=== PATIENT | female | born 1970 | race American Indian/Alaskan Native ===

== ENCOUNTER 2016-08-20 02:20 | Emergency (ER) | payer MEDICARE, MEDICAID ==
[2016-08-20 02:41] VITALS: BP 149/87
[2016-08-20] MEDS ORDERED: Acetaminophen/oxyCODONE 325-5 MG Tab PO ONE (02:56)
--- NOTE | 2016-08-20 04:45 | EDM.PDOC ---
ED HPI GENERAL MEDICAL PROBLEM - General Chief Complaint: General Stated Complaint: AMBULANCE Time Seen by Provider: 08/20/16 02:45 Source of Information: Reports: Patient, RN Notes Reviewed History Limitations: Reports: No Limitations - History of Present Illness INITIAL COMMENTS - FREE TEXT/NARRATIVE: ED via [facility] with c/o pain to left ribs after falling carrying in groceries, unsure what she fell on, pain worse with movement and taking deep breath. No other reported injuries with fall. Onset: Today Location: Reports: Chest (left) Quality: Reports: Stabbing (with movment), Throbbing Improves with: Reports: None Worsens with: Reports: Movement Left Chest Pain Score (Numeric/FACES): 8 - Related Data Allergies Allergy/AdvReac Type Severity Reaction Status Date / Time No Known Allergies Allergy Verified 08/20/16 02:25 Home Meds: Home Meds Albuterol [Proair HFA] 2 puff INH ASDIRECTED PRN 08/21/13 [History] Fluticasone Propionate [Flovent HFA 110 MCG] 2 puff INH ASDIRECTED PRN 08/21/13 [History] Lisinopril 40 mg PO DAILY 08/21/13 [History] sitaGLIPtin Phos/Metformin HCl [Janumet 50-1,000 MG] 1,000 mg PO DAILY 08/21/13 [History] Insulin Aspart [Novolog Flexpen] 25 units SQ TID PRN 03/17/15 [History] Insulin Glarg,Human.Rec.Analog [Lantus] 30 units SQ BID 03/17/15 [History] Gabapentin [Gabapentin] 600 mg PO TID 09/07/15 [History] Past Medical History HEENT History: Reports: None Cardiovascular History: Reports: Hypertension, Other (See Below) Other Cardiovascular History: hx rhuematic fever Respiratory History: Reports: Asthma Gastrointestinal History: Reports: None Genitourinary History: Reports: None 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 Musculoskeletal History: Reports: Back Pain, Chronic, Osteoarthritis Neurological History: Reports: Neuropathy, Diabetic, Neuropathy, Peripheral, Seizure, TIA Other Neuro History: mini strokes Psychiatric History: Reports: None Endocrine/Metabolic History: Reports: Diabetes, Type II, IDDM, Obesity/BMI 30+ Hematologic History: Reports: None Immunologic History: Reports: None Oncologic (Cancer) History: Reports: None Dermatologic History: Reports: None - Infectious Disease History Infectious Disease History: Reports: Chicken Pox - Past Surgical History Head Surgeries/Procedures: Reports: None Female Surgical History: Reports: Section Social & Family History - Family History Family Medical History: Noncontributory Respiratory: Reports: Asthma Other Respiratory Family Hisory: Brother Endocrine/Metabolic: Reports: Diabetes, type II Other Endocrine/Metabolic Family History: Brother - Tobacco Use Smoking Status *Q: Current Every Day Smoker Years of Tobacco use: 20 Packs/Tins Daily: 0.2 Used Tobacco, but Quit: No Month Tobacco Last Used: Second Hand Smoke Exposure: Yes - Caffeine Use Caffeine Use: Reports: Soda - Alcohol Use Days Per Week of Alcohol Use: 0 - Recreational Drug Use Recreational Drug Use: No - Sexual History Sexual History: Reports: Sexually Active, Single Partner - Living Situation & Occupation Living situation: Reports: with Significant Other, with Family Occupation: Unemployed ED ROS GENERAL - Review of Systems Review Of Systems: ROS reveals no pertinent complaints other than HPI. ED EXAM, GENERAL - Physical Exam Exam: See Below Exam Limited By: No Limitations General Appearance: Alert, Mild Distress, Obese Eye Exam: Bilateral Eye: EOMI, PERRL Nose: Normal Inspection Throat/Mouth: No: Normal Teeth (poor dentation) Head: Atraumatic, Normocephalic Neck: Normal Inspection Respiratory/Chest: No Respiratory Distress, Lungs Clear, Decreased Breath Sounds (left base), Splinting (left) Cardiovascular: Normal Peripheral Pulses, Regular Rate, Rhythm GI/Abdominal: Normal Bowel Sounds, Soft, Non-Tender Back Exam: Normal Inspection Extremities: Normal Inspection Neurological: Alert, Oriented, Normal Cognition, Normal Reflexes Skin Exam: Warm, Dry, Intact Lymphatic: No Adenopathy Course - Vital Signs Last Recorded V/S: Last Vital Signs Temp 97.8 F 08/20/16 02:29 Pulse 105 H 08/20/16 02:29 Resp 20 08/20/16 02:29 BP 149/87 H 08/20/16 02:29 Pulse Ox 100 08/20/16 02:29 - Orders/Labs/Meds Meds: Medications Discontinued Medications Generic Name Dose Route Start Last Admin Trade Name Freq PRN Reason Stop Dose Admin Oxycodone/Acetaminophen 1 tab 08/20/16 02:56 08/20/16 03:03 Percocet 325-5 Mg PO 08/20/16 02:57 1 tab ONETIME ONE Administration Departure - Departure Time of Disposition: 04:37 Disposition: Home, Self-Care 01 Condition: Good Clinical Impression: Rib pain on left side - Discharge Information Instructions: Rib Contusion Forms: ED Department Discharge Additional Instructions: alternate tylenol 650mg with Ibuprofen 600mg every 4 hours splint area with coughing change positions slowly follow up on Wednesday in clinic sooner if pain worsens or breathing difficulty
== END 2016-08-20 04:56 | disposition home or self-care (01) ==
LOC: DL.ED 02:20
DX: R07.81 Pleurodynia (principal); E11.42 Type 2 diabetes mellitus with diabetic polyneuropathy; I10 Essential (primary) hypertension; J45.909 Unspecified asthma, uncomplicated; M19.90 Unspecified osteoarthritis, unspecified site; E66.9 Obesity, unspecified; F17.210 Nicotine dependence, cigarettes, uncomplicated; Z86.73 Personal history of transient ischemic attack (TIA), and cerebral infarction without residual deficits; Z79.4 Long term (current) use of insulin; Z79.84 Long term (current) use of oral hypoglycemic drugs; Z79.899 Other long term (current) drug therapy
CPT/HCPCS: 71101; 99284; A9270

== ENCOUNTER 2016-10-01 16:38 | Emergency (ER) | payer MEDICARE, MEDICAID ==
--- NOTE | 2016-10-01 17:15 | EDM.PDOC ---
ED HPI GENERAL MEDICAL PROBLEM - General Chief Complaint: Neuro Symptoms/Deficits Stated Complaint: GENERAL Time Seen by Provider: 10/01/16 16:50 Source of Information: Reports: Patient History Limitations: Reports: No Limitations - History of Present Illness INITIAL COMMENTS - FREE TEXT/NARRATIVE: This 45 yo female patient was brought to the ED by [facility] due to a possible stroke. EMS reports when they appeared on scene the patient had slurred speech, right sided facial droop, right arm and right leg weakness. EMS reports her blood sugar was 120's during their visit. The patient was immediately taken to the CT for a scan of her head. The patient's reports he was with the patient this morning until about noon. The patient was acting normally and they went for a 2 block walk to their son's school. The reports he went back to work and called the house at about 1300 and the patient was slurring her words. The came directly home and checked the patient's blood sugar. The patient's blood sugar at that time was 504. The gave the patient some insulin and returned to work. The called back to the house at about 1500 and the patient was again slurring her words. The returned to the house, checked the patient's blood sugar (340's) and gave her some more insulin. Just prior to calling the ambulance, the patient told her that she had fallen earlier today hitting the back of her head. At that time, the noticed that the patient had right sided facial droop, right arm weakness and right leg weakness. The reports the patient has a history of being transported by air to [facility] in [place] for a blood infection and was in a coma for a week. Since that time, the reports that the patient has been having "little strokes." Onset: Today Onset Date: 10/01/16 Duration: Constant Location: Reports: Head, Face, Upper Extremity, Right, Lower Extremity, Right Quality: Reports: Other Severity: Severe Improves with: Reports: None Worsens with: Reports: None Associated Symptoms: Reports: No Other Symptoms - Related Data Allergies Allergy/AdvReac Type Severity Reaction Status Date / Time No Known Allergies Allergy Verified 10/01/16 17:17 Home Meds: Home Meds Albuterol [Proair HFA] 2 puff INH ASDIRECTED PRN 08/21/13 [History] Fluticasone Propionate [Flovent HFA 110 MCG] 2 puff INH ASDIRECTED PRN 08/21/13 [History] Lisinopril 40 mg PO DAILY 08/21/13 [History] sitaGLIPtin Phos/Metformin HCl [Janumet 50-1,000 MG] 1,000 mg PO DAILY 08/21/13 [History] Insulin Aspart [Novolog Flexpen] 25 units SQ TID PRN 03/17/15 [History] Insulin Glarg,Human.Rec.Analog [Lantus] 30 units SQ BID 03/17/15 [History] Gabapentin [Gabapentin] 600 mg PO TID 09/07/15 [History] Aspirin [Ecotrin] 81 mg PO DAILY 10/01/16 [History] Ibuprofen [Motrin] 800 mg PO ASDIRECTED PRN 10/01/16 [History] Past Medical History HEENT History: Reports: None Cardiovascular History: Reports: Hypertension, Other (See Below) Other Cardiovascular History: hx rhuematic fever Respiratory History: Reports: Asthma Gastrointestinal History: Reports: None Genitourinary History: Reports: None 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 Musculoskeletal History: Reports: Back Pain, Chronic, Osteoarthritis Neurological History: Reports: Neuropathy, Diabetic, Neuropathy, Peripheral, Seizure, TIA Other Neuro History: mini strokes Psychiatric History: Reports: None Endocrine/Metabolic History: Reports: Diabetes, Type II, IDDM, Obesity/BMI 30+ Hematologic History: Reports: None Immunologic History: Reports: None Oncologic (Cancer) History: Reports: None Dermatologic History: Reports: None - Infectious Disease History Infectious Disease History: Reports: Chicken Pox - Past Surgical History Head Surgeries/Procedures: Reports: None Female Surgical History: Reports: Section Social & Family History - Family History Family Medical History: Noncontributory Respiratory: Reports: Asthma Other Respiratory Family Hisory: Brother Endocrine/Metabolic: Reports: Diabetes, type II Other Endocrine/Metabolic Family History: Brother - Tobacco Use Smoking Status *Q: Current Every Day Smoker Years of Tobacco use: 20 Packs/Tins Daily: 0.2 Used Tobacco, but Quit: No Month Tobacco Last Used: 02 Second Hand Smoke Exposure: Yes - Caffeine Use Caffeine Use: Reports: Soda - Alcohol Use Days Per Week of Alcohol Use: 0 - Recreational Drug Use Recreational Drug Use: No - Sexual History Sexual History: Reports: Sexually Active, Single Partner - Living Situation & Occupation Living situation: Reports: with Significant Other, with Family Occupation: Unemployed ED ROS GENERAL - Review of Systems Review Of Systems: ROS reveals no pertinent complaints other than HPI. ED EXAM, NEURO - Physical Exam Exam: See Below Exam Limited By: No Limitations General Appearance: Alert, WD/WN, Moderate Distress, Obese Eye Exam: Bilateral Eye: EOMI, Normal Inspection, PERRL (sluggish but reactive) Ears: Normal External Exam, Normal Canal, Hearing Grossly Normal Nose: Normal Inspection, Normal Mucosa, No Blood Throat/Mouth: Normal Inspection, Normal Lips, Normal Teeth, Normal Gums, Normal Oropharynx, Normal Voice, No Airway Compromise Head Exam: Atraumatic, Normocephalic, Other (right sided facial droop) Neck: Normal Inspection, Supple, Non-Tender Respiratory/Chest: No Respiratory Distress, Lungs Clear, Normal Breath Sounds, No Accessory Muscle Use, Chest Non-Tender Cardiovascular: Normal Peripheral Pulses, Regular Rate, Rhythm, No Edema, No Gallop, No JVD, No Murmur, No Rub GI/Abdominal: Normal Bowel Sounds, Soft, Non-Tender, No Organomegaly, No Distention, No Abnormal Bruit, No Mass, Pelvis Stable (Female) Exam: Deferred Rectal (Female) Exam: Deferred Neurological: Alert, Normal Mood/Affect, Other (right sided facial droop, right sided upper and lower extremity weakness, slurred speach) Back Exam: Normal Inspection, Full Range of Motion, NT Extremities: Other (see above (right sided weakness)) Psychiatric: Normal Affect, Normal Mood Skin Exam: Warm, Dry, Intact, Normal Color, No Rash Course - Orders/Labs/Meds Orders: Active Orders 24 hr Category Date Time Status EKG Documentation Completion [RC] URGENT Care 10/01/16 16:51 Active CBC WITH AUTO DIFF [HEME] Urgent Lab 10/01/16 16:51 Ordered COMPREHENSIVE METABOLIC PN,CMP [CHEM] Urgent Lab 10/01/16 16:51 Ordered DRUG SCREEN URINE BIORAD [URCHEM] Stat Lab 10/01/16 16:51 Uncollected ETHANOL BLOOD MEDICAL [CHEM] Stat Lab 10/01/16 16:59 Ordered INR,PT,PROTHROMBIN TIME [COAG] Stat Lab 10/01/16 16:59 Ordered KETONES,BLOOD [CHEM] Stat Lab 10/01/16 17:03 Ordered TROPONIN I [CHEM] Urgent Lab 10/01/16 16:51 Ordered UA W/MICROSCOPIC [URIN] Stat Lab 10/01/16 16:51 Uncollected Departure - Departure Time of Disposition: 17:20 Disposition: DC/Tfer to Acute Hospital 02 Condition: Poor Clinical Impression: CVA (cerebral vascular accident) Qualifiers: CVA mechanism: other Qualified Code(s): I63.8 - Other cerebral infarction - Discharge Information Forms: Interfacility Transfer EMTALA Care Plan Goals: Discussed the history, examination, initial lab, CT and EKG results with Dr. Montes (Hospitalist with [facility] in [place]). Dr. Montes accepted the patient for continued evaluation and management. The patient will be transported by [facility]. - My Orders Last 24 Hours: My Active Orders 10/01/16 16:51 EKG Documentation Completion [RC] URGENT CBC WITH AUTO DIFF [HEME] Urgent COMPREHENSIVE METABOLIC PN,CMP [CHEM] Urgent DRUG SCREEN URINE BIORAD [URCHEM] Stat TROPONIN I [CHEM] Urgent UA W/MICROSCOPIC [URIN] Stat 10/01/16 16:59 ETHANOL BLOOD MEDICAL [CHEM] Stat INR,PT,PROTHROMBIN TIME [COAG] Stat 10/01/16 17:03 KETONES,BLOOD [CHEM] Stat - Assessment/Plan Last 24 Hours: My Active Orders 10/01/16 16:51 EKG Documentation Completion [RC] URGENT CBC WITH AUTO DIFF [HEME] Urgent COMPREHENSIVE METABOLIC PN,CMP [CHEM] Urgent DRUG SCREEN URINE BIORAD [URCHEM] Stat TROPONIN I [CHEM] Urgent UA W/MICROSCOPIC [URIN] Stat 10/01/16 16:59 ETHANOL BLOOD MEDICAL [CHEM] Stat INR,PT,PROTHROMBIN TIME [COAG] Stat 10/01/16 17:03 KETONES,BLOOD [CHEM] Stat
[2016-10-01 17:18] VITALS: BP 171/81
[2016-10-01 17:35] LABS: CHLORIDE,CL 108 mmol/L (101-111); SODIUM,NA 143 mmol/L (135-145)
--- NOTE | 2016-10-05 09:24 | EKG ---
10/01/2016- PAGE, DAIJA MELGAR - EKG per my reading shows sinus rhythm with PVC. [facility] /[id number]
== END 2016-10-01 17:58 ==
LOC: DL.ED 16:38
DX: I63.8 Other cerebral infarction (principal); I10 Essential (primary) hypertension; J45.909 Unspecified asthma, uncomplicated; E11.40 Type 2 diabetes mellitus with diabetic neuropathy, unspecified; M19.90 Unspecified osteoarthritis, unspecified site; F17.210 Nicotine dependence, cigarettes, uncomplicated; E66.9 Obesity, unspecified; Z68.36 Body mass index [BMI] 36.0-36.9, adult; Z98.890 Other specified postprocedural states; Z79.82 Long term (current) use of aspirin; Z79.4 Long term (current) use of insulin; Z79.899 Other long term (current) drug therapy
CPT/HCPCS: 36415; 70450; 80053; 80305; 81001; 82009; 84484; 85025; 85610; 87086; 93005; 93010; 99285; G0480; 99284

== ENCOUNTER 2016-12-28 21:22 | Emergency (ER) | payer MEDICARE, MEDICAID ==
[2016-12-28] MEDS ORDERED: Mupirocin Oint 22 GM Tube TOP ONE (21:23)
[2016-12-28] MEDS ORDERED: Amoxicillin/Clavulanate K 875-125 MG Tab PO ONE (21:23)
[2016-12-28 21:49] VITALS: BP 119/71
--- NOTE | 2016-12-28 22:22 | EDM.PDOC ---
ED HPI GENERAL MEDICAL PROBLEM - General Chief Complaint: Skin Complaint Stated Complaint: INFECTED FINGER, [id number] Time Seen by Provider: 12/28/16 21:40 - History of Present Illness INITIAL COMMENTS - FREE TEXT/NARRATIVE: c/o infected fingers, burned last week taking lee out of oven. left 3rd tip draining. 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: Other (see below) Other Treatments INTERNET DEVELOPER: none Left 3-Middle finger Pain Score (Numeric/FACES): 8 - Related Data Allergies Allergy/AdvReac Type Severity Reaction Status Date / Time No Known Allergies Allergy Verified 12/28/16 21:48 Home Meds: Home Meds Albuterol [Proair HFA] 2 puff INH ASDIRECTED PRN 08/21/13 [History] Fluticasone Propionate [Flovent HFA 110 MCG] 2 puff INH ASDIRECTED PRN 08/21/13 [History] Lisinopril 40 mg PO DAILY 08/21/13 [History] sitaGLIPtin Phos/Metformin HCl [Janumet 50-1,000 MG] 1,000 mg PO DAILY 08/21/13 [History] Insulin Aspart [Novolog Flexpen] 33 - 40 units SQ TID PRN 03/17/15 [History] Insulin Glarg,Human.Rec.Analog [Lantus] 30 units SQ BID 03/17/15 [History] Gabapentin [Gabapentin] 600 mg PO TID 09/07/15 [History] Aspirin [Ecotrin] 81 mg PO DAILY 10/01/16 [History] Ibuprofen [Motrin] 800 mg PO ASDIRECTED PRN 10/01/16 [History] Past Medical History HEENT History: Reports: None Cardiovascular History: Reports: Hypertension, Other (See Below) Other Cardiovascular History: hx rhuematic fever Respiratory History: Reports: Asthma Gastrointestinal History: Reports: None Genitourinary History: Reports: 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 Musculoskeletal History: Reports: Back Pain, Chronic, Osteoarthritis Neurological History: Reports: Neuropathy, Diabetic, Neuropathy, Peripheral, Seizure, TIA Other Neuro History: mini strokes Psychiatric History: Reports: None Endocrine/Metabolic History: Reports: Diabetes, Type II, IDDM, Obesity/BMI 30+ Hematologic History: Reports: None Immunologic History: Reports: None Oncologic (Cancer) History: Reports: None Dermatologic History: Reports: None - Infectious Disease History Infectious Disease History: Reports: Chicken Pox - Past Surgical History Head Surgeries/Procedures: Reports: None Female Surgical History: Reports: Section Social & Family History - Family History Family Medical History: Noncontributory Respiratory: Reports: Asthma Other Respiratory Family Hisory: Brother Endocrine/Metabolic: Reports: Diabetes, type II Other Endocrine/Metabolic Family History: Brother - Tobacco Use Smoking Status *Q: Current Every Day Smoker Years of Tobacco use: 15 Packs/Tins Daily: 0.2 Used Tobacco, but Quit: No Month Tobacco Last Used: Second Hand Smoke Exposure: Yes - Caffeine Use Caffeine Use: Reports: Soda - Alcohol Use Days Per Week of Alcohol Use: 0 - Recreational Drug Use Recreational Drug Use: No - Sexual History Sexual History: Reports: Sexually Active, Single Partner - Living Situation & Occupation Living situation: Reports: with Significant Other, with Family Occupation: Unemployed ED ROS GENERAL - Review of Systems Review Of Systems: ROS reveals no pertinent complaints other than HPI. ED EXAM, SKIN/RASH Exam: See Below Exam Limited By: No Limitations General Appearance: Alert, No Apparent Distress Eye Exam: Bilateral Eye: EOMI Ears: Normal External Exam Nose: Normal Inspection Throat/Mouth: Normal Inspection Head: Atraumatic, Normocephalic Neck: Normal Inspection. No: Lymphadenopathy (L), Lymphadenopathy (R) Respiratory/Chest: No Respiratory Distress, Lungs Clear, Normal Breath Sounds Cardiovascular: Regular Rate, Rhythm GI/Abdominal: Normal Bowel Sounds Neurological: Alert, Oriented Skin: Warm, Dry, Erythema, Increased Warmth, Wound/Incision (calloused blistering to left 2nd 3rd and 4th finger tip. 3rd greatest. Scant drainage.) Course - Vital Signs Last Recorded V/S: Last Vital Signs Temp 96.2 F 12/28/16 21:27 Pulse 102 H 12/28/16 21:27 Resp 18 12/28/16 21:27 BP 119/71 12/28/16 21:27 Pulse Ox 100 12/28/16 21:27 - Orders/Labs/Meds Orders: Active Orders 24 hr Category Date Time Status CULTURE WOUND [RM] Stat Lab 12/28/16 22:03 Received Meds: Medications Discontinued Medications Generic Name Dose Route Start Last Admin Trade Name Freq PRN Reason Stop Dose Admin Amoxicillin/Clavulanate Potassium Confirm 12/28/16 22:26 12/28/16 22:30 Augmentin 875 Mg/125 Mg Administered 12/28/16 22:27 Not Given Dose 2 tab .ROUTE .STK-MED ONE Mupirocin Confirm 12/28/16 22:26 12/28/16 22:30 Bactroban Oint Administered 12/28/16 22:27 Not Given Dose 22 gm .ROUTE .STK-MED ONE Departure - Departure Time of Disposition: 22:19 Disposition: Home, Self-Care 01 Condition: Good Clinical Impression: Infected finger - Discharge Information Instructions: Burn Care, [id number] Referrals: Cali Jean Baptiste NP [Primary Care Provider] - Forms: ED Department Discharge Additional Instructions: augmentin 875mg one twice daily for one week warm soak finger three times daily mupirocin to fingers twice daily cover with bandaide recheck in clinic later this week - My Orders Last 24 Hours: My Active Orders 12/28/16 22:03 CULTURE WOUND [RM] Stat - Assessment/Plan Last 24 Hours: My Active Orders 12/28/16 22:03 CULTURE WOUND [RM] Stat
[2016-12-28] MEDS ORDERED: Amoxicillin/Clavulanate K 875-125 MG Tab ONE (22:26)
[2016-12-28] MEDS ORDERED: Mupirocin Oint 22 GM Tube ONE (22:26)
== END 2016-12-28 22:30 | disposition home or self-care (01) ==
LOC: DL.ED 21:22
DX: T23.232A Burn of second degree of multiple left fingers (nail), not including thumb, initial encounter (principal); L08.9 Local infection of the skin and subcutaneous tissue, unspecified; I10 Essential (primary) hypertension; E11.42 Type 2 diabetes mellitus with diabetic polyneuropathy; F17.210 Nicotine dependence, cigarettes, uncomplicated; J45.909 Unspecified asthma, uncomplicated; Z79.82 Long term (current) use of aspirin; Z79.899 Other long term (current) drug therapy; Z79.4 Long term (current) use of insulin; X15.3XXA Contact with hot saucepan or skillet, initial encounter
CPT/HCPCS: 87070; 99283; A9270; 87077; 87186

== ENCOUNTER 2017-02-13 18:28 | Emergency (ER) | payer MEDICARE, MEDICAID ==
[2017-02-13] MEDS ORDERED: Insulin Regular, Human 100 Units/ML 3 ML Vial SUBCUT ONE (20:17)
[2017-02-13 20:35] VITALS: BP 140/71
--- NOTE | 2017-02-13 20:36 | EDM.PDOC ---
ED HPI GENERAL MEDICAL PROBLEM - General Chief Complaint: General Stated Complaint: FELL, LEG AND BACK PAIN, [id number] Time Seen by Provider: 02/13/17 19:00 Source of Information: Reports: Patient History Limitations: Reports: No Limitations - History of Present Illness INITIAL COMMENTS - FREE TEXT/NARRATIVE: C/o pain above left eye, right hip and low back after fallling last katie when walker got stuck in snow and fell forward. Reports no loss of consciousness. Assited up by spouse. Continued pain despite ibupofen. Right Leg Pain Score (Numeric/FACES): 8 - Related Data Allergies Allergy/AdvReac Type Severity Reaction Status Date / Time No Known Allergies Allergy Verified 12/29/16 19:14 Home Meds: Home Meds Albuterol [Proair HFA] 2 puff INH ASDIRECTED PRN 08/21/13 [History] Fluticasone Propionate [Flovent HFA 110 MCG] 2 puff INH ASDIRECTED PRN 08/21/13 [History] Lisinopril 40 mg PO DAILY 08/21/13 [History] sitaGLIPtin Phos/Metformin HCl [Janumet 50-1,000 MG] 1,000 mg PO DAILY 08/21/13 [History] Insulin Aspart [Novolog Flexpen] 33 - 40 units SQ TID PRN 03/17/15 [History] Insulin Glarg,Human.Rec.Analog [Lantus] 30 units SQ BID 03/17/15 [History] Gabapentin [Gabapentin] 600 mg PO TID 09/07/15 [History] Aspirin [Ecotrin] 81 mg PO DAILY 10/01/16 [History] Ibuprofen [Motrin] 800 mg PO ASDIRECTED PRN 10/01/16 [History] Clopidogrel Bisulfate [Clopidogrel] 1 tab PO DAILY 02/13/17 [History] Hydrochlorothiazide [Hydrochlorothiazide] 1 tab PO DAILY 02/13/17 [History] Pregabalin [Lyrica] 1 tab PO TID 02/13/17 [History] Rosuvastatin Calcium 1 tab PO BEDTIME 02/13/17 [History] amLODIPine [Norvasc] 1 tab PO DAILY 02/13/17 [History] levETIRAcetam [Keppra] 1 tab PO BID 02/13/17 [History] Past Medical History HEENT History: Reports: None Cardiovascular History: Reports: Hypertension, Other (See Below) Other Cardiovascular History: hx rhuematic fever Respiratory History: Reports: Asthma Gastrointestinal History: Reports: None Genitourinary History: Reports: None 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, Musculoskeletal History: Reports: Back Pain, Chronic, Osteoarthritis Neurological History: Reports: Neuropathy, Diabetic, Neuropathy, Peripheral, Seizure, TIA Other Neuro History: mini strokes Psychiatric History: Reports: None Endocrine/Metabolic History: Reports: Diabetes, Type II, IDDM, Obesity/BMI 30+ Hematologic History: Reports: None Immunologic History: Reports: None Oncologic (Cancer) History: Reports: None Dermatologic History: Reports: None - Infectious Disease History Infectious Disease History: Reports: Chicken Pox - Past Surgical History Head Surgeries/Procedures: Reports: None Female Surgical History: Reports: Section Social & Family History - Family History Family Medical History: Noncontributory Respiratory: Reports: Asthma Other Respiratory Family Hisory: Brother Endocrine/Metabolic: Reports: Diabetes, type II Other Endocrine/Metabolic Family History: Brother - Tobacco Use Smoking Status *Q: Current Every Day Smoker Years of Tobacco use: 20 Packs/Tins Daily: 0.1 Used Tobacco, but Quit: No Month Tobacco Last Used: 02 Second Hand Smoke Exposure: Yes - Caffeine Use Caffeine Use: Reports: Soda - Alcohol Use Days Per Week of Alcohol Use: 0 - Recreational Drug Use Recreational Drug Use: No - Sexual History Sexual History: Reports: Sexually Active, Single Partner - Living Situation & Occupation Living situation: Reports: with Significant Other, with Family Occupation: Unemployed ED ROS GENERAL - Review of Systems Review Of Systems: ROS reveals no pertinent complaints other than HPI. ED EXAM, GENERAL - Physical Exam Exam: See Below Exam Limited By: No Limitations General Appearance: Alert, No Apparent Distress, Obese Eye Exam: Bilateral Eye: EOMI, PERRL Ears: Normal External Exam, Normal TMs Nose: Normal Inspection Throat/Mouth: Normal Inspection Head: Facial Tenderness (amll bruise mild swelling outer left eyebrow tender to palpation) Neck: Non-Tender, Full Range of Motion Respiratory/Chest: No Respiratory Distress, Lungs Clear, Normal Breath Sounds Cardiovascular: Normal Peripheral Pulses, Regular Rate, Rhythm GI/Abdominal: Normal Bowel Sounds, Soft Back Exam: Other (generalized low back tenderness with palpation, no bruising) Extremities: No: Normal Range of Motion (limited internal roatation right hip tender upper lateral thigh, no bruising. ) Neurological: Oriented, Normal Cognition Psychiatric: Flat Affect Skin Exam: Warm, Dry, Intact, Normal Color Course - Vital Signs Last Recorded V/S: Last Vital Signs Temp 99.2 F 02/13/17 20:33 Pulse 103 H 02/13/17 20:33 Resp 16 02/13/17 20:33 BP 140/71 02/13/17 20:33 Pulse Ox 98 02/13/17 20:33 - Orders/Labs/Meds Orders: Active Orders 24 hr Category Date Time Status Glucose [Blood Glucose Check, Bedside] [RC] ONETIME Care 02/13/17 20:45 Active Labs: Laboratory Tests 02/13/17 02/13/17 02/13/17 Range/Units 19:14 19:14 19:15 WBC 12.5 H (5.0-10.0) 10^3/uL RBC 4.14 L (4.2-5.4) 10^6/uL Hgb 12.0 (12.0-16.0) g/dL Hct 34.2 L (37.0-47.0) % MCV 82.6 D (80-100) fL MCH 29.0 (27.0-34.0) pg MCHC 35.1 H (33.0-35.0) g/dL Plt Count 256 D (150-450) 10^3/uL Neut % (Auto) 71.5 (42.2-75.2) % Lymph % (Auto) 19.2 L (20.5-50.1) % [place] % (Auto) 6.9 (2-8) % Eos % (Auto) 2.2 (1.0-3.0) % Baso % (Auto) 0.2 (0.0-1.0) % Add Manual Diff Yes Neutrophils % (Manual) 77 H (42-75) % Lymphocytes % (Manual) 17 L (20-50) % Monocytes % (Manual) 3 (2-8) % Eosinophils % (Manual) 3 (1-3) % Sodium (135-145) mmol/L Potassium (3.6-5.0) mmol/L Chloride (101-111) mmol/L Carbon Dioxide (21.0-31.0) mmol/L Anion Gap BUN (7-18) mg/dL Creatinine (0.6-1.3) mg/dL Est Cr Clr Drug Dosing mL/min Estimated GFR (MDRD) BUN/Creatinine Ratio Glucose (74-105) mg/dL Calcium (8.4-10.2) mg/dl Total Bilirubin (0.2-1.0) mg/dL AST (10-42) IU/L ALT (10-60) IU/L Alkaline Phosphatase (42-121) IU/L Total Protein (6.7-8.2) g/dl Albumin (3.2-5.5) g/dl Globulin Albumin/Globulin Ratio Urine Color Light yellow (YELLOW) Urine Appearance Clear (CLEAR) Urine pH 7.0 (5.0-9.0) Ur Specific [place] 1.015 (1.005-1.030) Urine Protein 100 H (NEGATIVE) Urine Glucose (UA) 500 H (NEGATIVE) Urine Ketones Negative (NEGATIVE) Urine Occult Blood Small H (NEGATIVE) Urine Nitrite Negative (NEGATIVE) Urine Bilirubin Negative (NEGATIVE) Urine Urobilinogen 0.2 (0.2-1.0) mg/dL Ur Leukocyte Esterase Negative (NEGATIVE) Urine RBC 0-5 /HPF Urine WBC 0-5 (0-5/HPF) /HPF Ur Epithelial Cells Few /HPF Urine Bacteria Occasional (0-FEW/HPF) /HPF Urine Opiates Screen Negative (NEGATIVE) Ur Oxycodone Screen Negative (NEGATIVE) Urine Methadone Screen Negative (NEGATIVE) Ur Barbiturates Screen Negative (NEGATIVE) U Tricyclic Antidepress Negative (NEGATIVE) Ur Phencyclidine Scrn Negative (NEGATIVE) Ur Amphetamine Screen Negative (NEGATIVE) U Methamphetamines Scrn Negative (NEGATIVE) Urine MDMA Screen Negative (NEGATIVE) U Benzodiazepines Scrn Negative (NEGATIVE) Urine Cocaine Screen Negative (NEGATIVE) U Marijuana (THC) Screen Negative (NEGATIVE) 02/13/17 Range/Units 19:15 WBC (5.0-10.0) 10^3/uL RBC (4.2-5.4) 10^6/uL Hgb (12.0-16.0) g/dL Hct (37.0-47.0) % MCV (80-100) fL MCH (27.0-34.0) pg MCHC (33.0-35.0) g/dL Plt Count (150-450) 10^3/uL Neut % (Auto) (42.2-75.2) % Lymph % (Auto) (20.5-50.1) % [place] % (Auto) (2-8) % Eos % (Auto) (1.0-3.0) % Baso % (Auto) (0.0-1.0) % Add Manual Diff Neutrophils % (Manual) (42-75) % Lymphocytes % (Manual) (20-50) % Monocytes % (Manual) (2-8) % Eosinophils % (Manual) (1-3) % Sodium 128 L (135-145) mmol/L Potassium 3.2 L (3.6-5.0) mmol/L Chloride 96 L (101-111) mmol/L Carbon Dioxide 26.0 (21.0-31.0) mmol/L Anion Gap 9.2 BUN 14 (7-18) mg/dL Creatinine 1.2 (0.6-1.3) mg/dL Est Cr Clr Drug Dosing 60.35 mL/min Estimated GFR (MDRD) 49 BUN/Creatinine Ratio 11.66 Glucose 604 H* (74-105) mg/dL Calcium 8.5 (8.4-10.2) mg/dl Total Bilirubin 0.3 (0.2-1.0) mg/dL AST 13 (10-42) IU/L ALT 14 (10-60) IU/L Alkaline Phosphatase 158 H (42-121) IU/L Total Protein 7.3 (6.7-8.2) g/dl Albumin 2.7 L (3.2-5.5) g/dl Globulin 4.6 Albumin/Globulin Ratio 0.59 Urine Color (YELLOW) Urine Appearance (CLEAR) Urine pH (5.0-9.0) Ur Specific Christine (1.005-1.030) Urine Protein (NEGATIVE) Urine Glucose (UA) (NEGATIVE) Urine Ketones (NEGATIVE) Urine Occult Blood (NEGATIVE) Urine Nitrite (NEGATIVE) Urine Bilirubin (NEGATIVE) Urine Urobilinogen (0.2-1.0) mg/dL Ur Leukocyte Esterase (NEGATIVE) Urine RBC /HPF Urine WBC (0-5/HPF) /HPF Ur Epithelial Cells /HPF Urine Bacteria (0-FEW/HPF) /HPF Urine Opiates Screen (NEGATIVE) Ur Oxycodone Screen (NEGATIVE) Urine Methadone Screen (NEGATIVE) Ur Barbiturates Screen (NEGATIVE) U Tricyclic Antidepress (NEGATIVE) Ur Phencyclidine Scrn (NEGATIVE) Ur Amphetamine Screen (NEGATIVE) U Methamphetamines Scrn (NEGATIVE) Urine MDMA Screen (NEGATIVE) U Benzodiazepines Scrn (NEGATIVE) Urine Cocaine Screen (NEGATIVE) U Marijuana (THC) Screen (NEGATIVE) Meds: Medications Discontinued Medications Generic Name Dose Route Start Last Admin Trade Name Noel PRN Reason Stop Dose Admin Insulin Human Regular 10 unit 02/13/17 20:17 02/13/17 20:23 Humulin R SUBCUT 02/13/17 20:18 10 units ONETIME ONE Administration Protocol - Radiology Interpretation Free Text/Narrative:: CT head lumbar and pelvis normal. - Re-Assessments/Exams Free Text/Narrative Re-Assessment/Exam: 02/14/17 00:54 Patient left refusing to sign discharge paperwork Departure - Departure Time of Disposition: 20:30 Disposition: Home, Self-Care 01 Condition: Good Clinical Impression: Right hip pain Fall Qualifiers: Encounter type: initial encounter Qualified Code(s): W19.XXXA - Unspecified fall, initial encounter Facial contusion Qualifiers: Encounter type: initial encounter Qualified Code(s): S00.83XA - Contusion of other part of head, initial encounter Low back pain Qualifiers: Chronicity: unspecified Back pain laterality: bilateral Sciatica presence: without sciatica Qualified Code(s): M54.5 - Low back pain - Discharge Information Instructions: Lumbosacral Strain Referrals: [facility] 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
== END 2017-02-13 20:37 | disposition home or self-care (01) ==
LOC: DL.ED 18:28
DX: M25.551 Pain in right hip (principal); M54.5 Low back pain; I10 Essential (primary) hypertension; J45.909 Unspecified asthma, uncomplicated; E11.40 Type 2 diabetes mellitus with diabetic neuropathy, unspecified; F17.210 Nicotine dependence, cigarettes, uncomplicated; Z79.4 Long term (current) use of insulin; Z79.82 Long term (current) use of aspirin; Z79.899 Other long term (current) drug therapy
CPT/HCPCS: 36415; 70450; 72131; 72192; 80053; 80305; 81001; 85025; 99284; J1815

== ENCOUNTER 2017-03-16 15:05 | Emergency (ER) | payer MEDICARE, MEDICAID ==
[2017-03-16 15:19] VITALS: BP 110/69
[2017-03-16] MEDS ORDERED: Ketorolac 30 MG/ML SDV IM ONE (17:19)
[2017-03-16] MEDS ORDERED: methylPREDNISolone Sodium Succinate 125 MG/2 ML SDV IM ONE (17:19)
--- NOTE | 2017-03-16 18:16 | EDM.PDOC ---
Scribed by Bertha Spivey 03/16/17 [id number] for Heidy Brice NP ED HPI GENERAL MEDICAL PROBLEM - General Chief Complaint: General Stated Complaint: FELL BACK/LEG INJURY [id number] Time Seen by Provider: 03/16/17 15:20 Source of Information: Reports: Patient, RN, RN Notes Reviewed History Limitations: Reports: No Limitations - History of Present Illness INITIAL COMMENTS - FREE TEXT/NARRATIVE: Patient presents to ER with complaint of falling on her back. She states she fell on the ice about 1500. Patient states she hurts in lower back and left leg 7/10 is her pain. She has some numbness and tingling in left buttock. Onset: Today Duration: Constant Location: Reports: Back Quality: Reports: Ache Severity: Moderate Improves with: Reports: None Worsens with: Reports: None Associated Symptoms: Reports: No Other Symptoms Lower Back Pain Score (Numeric/FACES): 8 Left Hand Pain Score (Numeric/FACES): 8 Left Knee Pain Score (Numeric/FACES): 8 - Related Data Allergies Allergy/AdvReac Type Severity Reaction Status Date / Time No Known Allergies Allergy Verified 12/29/16 19:14 Home Meds: Home Meds Albuterol [Proair HFA] 2 puff INH ASDIRECTED PRN 08/21/13 [History] Fluticasone Propionate [Flovent HFA 110 MCG] 2 puff INH ASDIRECTED PRN 08/21/13 [History] Lisinopril 40 mg PO DAILY 08/21/13 [History] sitaGLIPtin Phos/Metformin HCl [Janumet 50-1,000 MG] 1,000 mg PO DAILY 08/21/13 [History] Insulin Aspart [Novolog Flexpen] 33 - 40 units SQ TID PRN 03/17/15 [History] Insulin Glarg,Human.Rec.Analog [Lantus] 30 units SQ BID 03/17/15 [History] Gabapentin [Gabapentin] 600 mg PO TID 09/07/15 [History] Aspirin [Ecotrin] 81 mg PO DAILY 10/01/16 [History] Ibuprofen [Motrin] 800 mg PO ASDIRECTED PRN 10/01/16 [History] Clopidogrel Bisulfate [Clopidogrel] 1 tab PO DAILY 02/13/17 [History] Hydrochlorothiazide [Hydrochlorothiazide] 1 tab PO DAILY 02/13/17 [History] Pregabalin [Lyrica] 1 tab PO TID 02/13/17 [History] Rosuvastatin Calcium 1 tab PO BEDTIME 02/13/17 [History] amLODIPine [Norvasc] 1 tab PO DAILY 02/13/17 [History] levETIRAcetam [Keppra] 1 tab PO BID 02/13/17 [History] Past Medical History HEENT History: Reports: None Cardiovascular History: Reports: Hypertension, Other (See Below) Other Cardiovascular History: hx rhuematic fever Respiratory History: Reports: Asthma Gastrointestinal History: Reports: None Genitourinary History: Reports: None 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: Musculoskeletal History: Reports: Back Pain, Chronic, Osteoarthritis Neurological History: Reports: Neuropathy, Diabetic, Neuropathy, Peripheral, Seizure, TIA Other Neuro History: mini strokes Psychiatric History: Reports: None Endocrine/Metabolic History: Reports: Diabetes, Type II, IDDM, Obesity/BMI 30+ Hematologic History: Reports: None Immunologic History: Reports: None Oncologic (Cancer) History: Reports: None Dermatologic History: Reports: None - Infectious Disease History Infectious Disease History: Reports: Chicken Pox - Past Surgical History Head Surgeries/Procedures: Reports: None Female Surgical History: Reports: Section Social & Family History - Family History Family Medical History: Noncontributory Respiratory: Reports: Asthma Other Respiratory Family Hisory: Brother Endocrine/Metabolic: Reports: Diabetes, type II Other Endocrine/Metabolic Family History: Brother - Tobacco Use Smoking Status *Q: Current Every Day Smoker Years of Tobacco use: 20 Packs/Tins Daily: 0.1 Used Tobacco, but Quit: No Month Tobacco Last Used: 02 Second Hand Smoke Exposure: Yes - Caffeine Use Caffeine Use: Reports: Soda - Alcohol Use Days Per Week of Alcohol Use: 0 - Recreational Drug Use Recreational Drug Use: No - Sexual History Sexual History: Reports: Sexually Active, Single Partner - Living Situation & Occupation Living situation: Reports: with Significant Other, with Family Occupation: Unemployed ED ROS GENERAL - Review of Systems Review Of Systems: ROS reveals no pertinent complaints other than HPI. ED EXAM, GENERAL - Physical Exam Exam: See Below Exam Limited By: No Limitations General Appearance: Alert Eye Exam: Bilateral Eye: Normal Inspection Ears: Normal External Exam, Normal Canal, Hearing Grossly Normal, Normal TMs Nose: Normal Inspection, Normal Mucosa, No Blood Throat/Mouth: Normal Inspection, Normal Lips, Normal Teeth, Normal Gums, Normal Oropharynx, Normal Voice, No Airway Compromise Head: Atraumatic, Normocephalic Neck: Normal Inspection, Supple, Non-Tender, Full Range of Motion Respiratory/Chest: Crackles (bases bilateral) Cardiovascular: Normal Peripheral Pulses, Regular Rate, Rhythm, No Edema, No Gallop, No JVD, No Murmur, No Rub GI/Abdominal: Normal Bowel Sounds, Soft, Non-Tender, No Organomegaly, No Distention, No Abnormal Bruit, No Mass (Female) Exam: Deferred Rectal (Female) Exam: Deferred Back Exam: Decreased Range of Motion (left leg/back) Neurological: Alert, Oriented, CN II-XII Intact, Normal Cognition, Normal Gait, Normal Reflexes, No Motor/Sensory Deficits Psychiatric: Normal Affect, Normal Mood Skin Exam: Warm, Dry, Intact, Normal Color, No Rash Lymphatic: No Adenopathy Course - Vital Signs Last Recorded V/S: Last Vital Signs Temp 97.5 F 03/16/17 15:08 Pulse 90 03/16/17 15:08 Resp 20 03/16/17 15:08 BP 110/69 03/16/17 15:08 Pulse Ox 100 03/16/17 15:08 - Orders/Labs/Meds Labs: Laboratory Tests 03/16/17 03/16/17 03/16/17 Range/Units 16:44 16:48 16:48 Urine Color (YELLOW) Urine Appearance (CLEAR) Urine pH (5.0-9.0) Ur Specific [place] (1.005-1.030) Urine Protein (NEGATIVE) Urine Glucose (UA) (NEGATIVE) Urine Ketones (NEGATIVE) Urine Occult Blood (NEGATIVE) Urine Nitrite (NEGATIVE) Urine Bilirubin (NEGATIVE) Urine Urobilinogen (0.2-1.0) mg/dL Ur Leukocyte Esterase (NEGATIVE) Urine RBC /HPF Urine WBC (0-5/HPF) /HPF Ur Epithelial Cells /HPF Urine Bacteria (0-FEW/HPF) /HPF Urine Yeast (0/HPF) /HPF Urine HCG, Qual Negative Urine Opiates Screen Negative (NEGATIVE) Ur Oxycodone Screen Negative (NEGATIVE) Urine Methadone Screen Negative (NEGATIVE) Ur Barbiturates Screen Negative (NEGATIVE) U Tricyclic Antidepress Negative (NEGATIVE) Ur Phencyclidine Scrn Negative (NEGATIVE) Ur Amphetamine Screen Negative (NEGATIVE) U Methamphetamines Scrn Negative (NEGATIVE) Urine MDMA Screen Negative (NEGATIVE) U Benzodiazepines Scrn Negative (NEGATIVE) Urine Cocaine Screen Negative (NEGATIVE) U Marijuana (THC) Screen Negative (NEGATIVE) Ethyl Alcohol < 5 mg/dL 03/16/17 Range/Units 16:48 Urine Color Yellow (YELLOW) Urine Appearance Clear (CLEAR) Urine pH 6.5 (5.0-9.0) Ur Specific [place] 1.020 (1.005-1.030) Urine Protein >=300 H (NEGATIVE) Urine Glucose (UA) 500 H (NEGATIVE) Urine Ketones Negative (NEGATIVE) Urine Occult Blood Trace-lysed H (NEGATIVE) Urine Nitrite Negative (NEGATIVE) Urine Bilirubin Negative (NEGATIVE) Urine Urobilinogen 0.2 (0.2-1.0) mg/dL Ur Leukocyte Esterase Negative (NEGATIVE) Urine RBC 0-5 /HPF Urine WBC 5-10 H (0-5/HPF) /HPF Ur Epithelial Cells Moderate H /HPF Urine Bacteria Moderate H (0-FEW/HPF) /HPF Urine Yeast Few H (0/HPF) /HPF Urine HCG, Qual Urine Opiates Screen (NEGATIVE) Ur Oxycodone Screen (NEGATIVE) Urine Methadone Screen (NEGATIVE) Ur Barbiturates Screen (NEGATIVE) U Tricyclic Antidepress (NEGATIVE) Ur Phencyclidine Scrn (NEGATIVE) Ur Amphetamine Screen (NEGATIVE) U Methamphetamines Scrn (NEGATIVE) Urine MDMA Screen (NEGATIVE) U Benzodiazepines Scrn (NEGATIVE) Urine Cocaine Screen (NEGATIVE) U Marijuana (THC) Screen (NEGATIVE) Ethyl Alcohol mg/dL Meds: Medications Discontinued Medications Generic Name Dose Route Start Last Admin Trade Name Noel PRN Reason Stop Dose Admin Ketorolac Tromethamine 60 mg 03/16/17 17:19 03/16/17 17:38 Toradol IM 03/16/17 17:20 60 mg ONETIME ONE Administration Methylprednisolone Sodium Succinate 125 mg 03/16/17 17:19 03/16/17 17:38 Solu-Medrol IM 03/16/17 17:20 125 mg ONETIME ONE Administration - Radiology Interpretation Free Text/Narrative:: Lumbar/Sacral/Coccyx xray: No acute findings See rad report Departure - Departure Time of Disposition: 18:15 Disposition: Home, Self-Care 01 Condition: Fair Clinical Impression: Low back pain - Discharge Information Instructions: Sciatica, [id number], Muscle Strain, [id number] Forms: ED Department Discharge Additional Instructions: May ice or heat the area as tolerated RX: Diclofenac, Medrol dose pack, take as directed May use Tylenol as directed for pain as well Follow up with your primary care facility I have read and agree with the documentation that has been completed regarding this visit. By signing this record, I attest that the documentation was completed in my physical presence and is an accurate record of the encounter.
== END 2017-03-16 18:10 | disposition home or self-care (01) ==
LOC: DL.ED 15:05
DX: M54.5 Low back pain (principal); I10 Essential (primary) hypertension; E11.40 Type 2 diabetes mellitus with diabetic neuropathy, unspecified; F17.210 Nicotine dependence, cigarettes, uncomplicated; Z79.899 Other long term (current) drug therapy; Z79.82 Long term (current) use of aspirin; Z79.4 Long term (current) use of insulin
CPT/HCPCS: 36415; 72100; 72220; 80305; 81001; 81025; 96372; 99283; G0480; J1885; J2930

== ENCOUNTER 2017-04-15 16:04 | Observation (INO) | payer MEDICARE, MEDICAID ==
[2017-04-15] MEDS ORDERED: Sodium Chloride 0.9% 10 ML Syringe FLUSH PRN (16:15)
[2017-04-15] MEDS ORDERED: Sodium Chloride 0.9% 1,000 ML IV ONE ×2 (16:25→17:46)
[2017-04-15] MEDS ORDERED: Iopamidol 612 MG/ML 100 ML Bottle IVPUSH ONE (16:26)
[2017-04-15 16:38] LABS: CHLORIDE,CL 95 mmol/L (101-111); SODIUM,NA 129 mmol/L (135-145)
--- NOTE | 2017-04-15 17:01 | CT ---
Clinical history: 46-year-old female injured in fall (loss of consciousness). Scan technique: Volume acquisition of data emergency unenhanced CT scan of the cervical spine obtaine d while the patient was lying supine on the Siemens multi slice scanner [place], [place]. All data archived in the PAC system for storage, reformatting and study. 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 *No prevertebral soft tissue swelling, cervical fracture or spondylolisthesis. No jumped locked facet s. First 2 ribs on both sides unremarkable. Lung apices clear. No basal skull fracture. CONCLUSION: Arthritis. No fractures or dislocations cervical spine.
--- NOTE | 2017-04-15 17:08 | CT ---
Clinical history: 46-year-old female injured in fall (loss of consciousness). "Negative" exam 2017 "unchanged" since [address] of the head. Scan technique: Volume acquisition of data emergency unenhanced CT scan of the head and brain obtaine d while the patient was lying supine on the Siemens multi slice scanner [place], [place]. All data archived in the PACS system for storage, reformatting and study. Interpretation: Mild mucoperiosteal thickening maxillary antra bilaterally. *Subtle new microvascular ischemic infarct periventricular white matter parietal lobe right cerebral hemisphere. CT exam head otherwise negative and unchanged compared earlier exams. Uniformly thick bony calvarium without sign of skull fracture, underlying brain contusion or epidural /subdural hematoma. Symmetric hurt-white matter pattern with underlying mirror-image normal ventricular system. No supratentorial or posterior fossa mass lesion (physiologic midline pineal and symmetric choroid pl exus calcifications). No sign of acute intracerebral/intraventricular/subarachnoid bleed. CONCLUSION: Subtle new microvascular ischemic infarct, right parietal lobe (axial scan slice #22). Bi lateral maxillary sinusitis.
--- NOTE | 2017-04-15 17:41 | CT ---
Clinical history: 46-year-old 200 pound female frequently in the emergency department who is experien cing pain right chest abdomen and hip associated with recent fall (CT head day reveals apparent "new microvascular infarct, right parietal lobe). Scan technique: Volume acquisition of data from the chest, abdomen and pelvis including both hips obt ained without oral contrast but during the intravenous administration 100 cc nonionic Isovue contrast (3 cc/s via injector) while patient was lying supine on the Siemens multi slice CT scanner [place], [place]. All data archived in the PACS system for storage and study. Interpretation: Patchy multilobe atelectasis or bronchiectasis involving right upper and both lower l obes. No sign of rib fracture, underlying lung contusion, dependent pleural effusion or pneumothorax. Multilevel thoracic and lower lumbar disc disease associated hypertrophic arthritic changes of the sp ine. No fracture or dislocation thoracolumbar spine or sacrum. No pelvic or either hip fracture/dislocatio n. Symmetric spacing normal-appearing SI and hip joints. Normal caliber thoracic/abdominal aorta and their major branches. No dissection or aneurysm. Cholecystectomy. Fatty liver. Liver, stomach, spleen, pancreas, and both kidneys anatomically correct without sign of visceral laceration or rupture. (Isolated 2 cm diameter cyst or adenoma left adrenal gland) Normal cardiac silhouette without effusion. Pancolonic diverticulosis. No sign of mechanical bowel obstruction and no pelvic/abdominal or retrope ritoneal mass/hematoma. CONCLUSION: No sign of skeletal fracture, hematoma, visceral laceration or mechanical bowel obstructi on. No pneumothorax or free intraperitoneal air. No effusions or ascites. No cystectomy. Left adrenal les ion. Diverticulosis colon.
--- NOTE | 2017-04-15 18:48 | EDM.PDOC ---
Scribed by Bertha Spivey 04/15/17 8030 for Shankar Maldonado MD ED HPI GENERAL MEDICAL PROBLEM - General Chief Complaint: Trauma Stated Complaint: EMS Time Seen by Provider: 04/15/17 16:05 Source of Information: Reports: Patient, EMS, EMS Notes Reviewed, Old Records, RN, RN Notes Reviewed History Limitations: Reports: No Limitations - History of Present Illness INITIAL COMMENTS - FREE TEXT/NARRATIVE: Pt arrives from home by ambulance with report that she fell backwards from the bottom step of her apartment as she was about to carry a bag of groceries up the stairs. Pt doesn't recall why she fell back. She states she hit her head and had a brief loss of consciousness that lasted "a few seconds". She also c/o pain to right hip, rt abd., and rt chest. Denies N/V, or leak of clear of bloody fluid from the nose or ears. Pt has Hx of seizures, but her witness the fall and reported to paramedics that he did not see any seizure like activity. Pt denies chest pain, dizziness, palpitations, syncope, or shortness of breath. She last checked her blood sugar this morning and it was 239 which is "normal for the mornings". *Pt treated as a trauma upon arrival even though age <55yrs due to extensive and complicated medical history, head injury with loss of consciousness, neck, chest wall, and rt hip/pelvis pain and pt on plavix + aspirin tx.* PRIMARY TRAUMA SURVEY: (16:05HRS) Arrives by ambulance in full immobilization without long spinal board, c-collar or head blocked, or strapped. Pt awake, alert, oriented to person, place, and date. AIRWAY: Patent nasal and oral airways. Conversant with clear speech. BREATHING: Spontaneous respirations, with lungs clear to auscultation B/L. CIRCULATION: Good color, no cyanosis. Intact peripheral pulses at all 4 distal extremities, normal capillary refill time at all four extremities distal digits. Heart RRR, no murmur, no rub. DISABILITY/DEFORMITIES: No bleeding. Tender to palpation with small minor bruising to B/L anterior knees, and very superficial abrasion to left anterior knee and proximal anterior lower leg. Tender to palpation of Rt hip and Rt camacho pelvis, and Rt lateral chest wall. No upper or lower extremity deformities , lacerations, swelling, discoloration, or other signs of injury. Camacho pelvis intact, stable. Abdomen benign to exam. Chest non-tender anteriorly, no flail chest, crepitus, or subcutaneous emphysema. Neuro. grossly intact with pt. A&O x3, appropriate conversation, no confusion, CN II-XII intact. No acute motor or sensory deficits, GCS 15 on arrival to ER. Skin clean, dry, warm, and intact. EXPOSURE: Pt was logged rolled with maintenance of c-spine immobilization, clothing/shirt was cut free and removed. No visible injury to back, no vertebral camacho tenderness. C-spine protected by placement of C-collar by RN at 16:08HRS with C-spine immobilization maintained and pt in supine position on firm foam padded ER gurney. Onset: Today Duration: Constant Location: Reports: Head, Neck, Chest, Abdomen, Pelvis, Lower Extremity, Right Quality: Reports: Ache Improves with: Reports: Immobilization Worsens with: Reports: Movement Context: Reports: Other (Fall) Associated Symptoms: Reports: No Other Symptoms - Related Data Allergies Allergy/AdvReac Type Severity Reaction Status Date / Time No Known Allergies Allergy Verified 04/15/17 16:23 Home Meds: Home Meds Albuterol [Proair HFA] 2 puff INH ASDIRECTED PRN 08/21/13 [History] Fluticasone Propionate [Flovent HFA 110 MCG] 2 puff INH ASDIRECTED PRN 08/21/13 [History] Lisinopril 40 mg PO DAILY 08/21/13 [History] sitaGLIPtin Phos/Metformin HCl [Janumet 50-1,000 MG] 1,000 mg PO DAILY 08/21/13 [History] Insulin Aspart [Novolog Flexpen] 30 units SQ TID PRN 03/17/15 [History] Insulin Glarg,Human.Rec.Analog [Lantus] 30 units SQ BID 03/17/15 [History] Gabapentin [Gabapentin] 600 mg PO TID 09/07/15 [History] Aspirin [Ecotrin] 81 mg PO DAILY 10/01/16 [History] Ibuprofen [Motrin] 800 mg PO ASDIRECTED PRN 10/01/16 [History] Clopidogrel Bisulfate [Clopidogrel] 1 tab PO DAILY 02/13/17 [History] Hydrochlorothiazide [Hydrochlorothiazide] 1 tab PO DAILY 02/13/17 [History] Pregabalin [Lyrica] 1 tab PO TID 02/13/17 [History] Rosuvastatin Calcium 1 tab PO BEDTIME 02/13/17 [History] amLODIPine [Norvasc] 1 tab PO DAILY 02/13/17 [History] levETIRAcetam [Keppra] 1 tab PO BID 02/13/17 [History] Past Medical History HEENT History: Reports: None Cardiovascular History: Reports: Hypertension, Other (See Below) Other Cardiovascular History: hx rhuematic fever Respiratory History: Reports: Asthma Gastrointestinal History: Reports: None Genitourinary History: Reports: None 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: Reports: Musculoskeletal History: Reports: Back Pain, Chronic, Osteoarthritis Neurological History: Reports: Neuropathy, Diabetic, Neuropathy, Peripheral, Seizure, TIA Other Neuro History: mini strokes Psychiatric History: Reports: None Endocrine/Metabolic History: Reports: Diabetes, Type II, IDDM, Obesity/BMI 30+ Hematologic History: Reports: None Immunologic History: Reports: None Oncologic (Cancer) History: Reports: None Dermatologic History: Reports: None - Infectious Disease History Infectious Disease History: Reports: Chicken Pox - Past Surgical History Head Surgeries/Procedures: Reports: None Female Surgical History: Reports: Section Social & Family History - Family History Family Medical History: Noncontributory Respiratory: Reports: Asthma Other Respiratory Family Hisory: Brother Endocrine/Metabolic: Reports: Diabetes, type II Other Endocrine/Metabolic Family History: Brother - Tobacco Use Smoking Status *Q: Current Every Day Smoker Years of Tobacco use: 20 Packs/Tins Daily: 0.1 Used Tobacco, but Quit: No Month Tobacco Last Used: 02 Second Hand Smoke Exposure: Yes - Caffeine Use Caffeine Use: Reports: Soda - Alcohol Use Days Per Week of Alcohol Use: 0 - Recreational Drug Use Recreational Drug Use: No - Sexual History Sexual History: Reports: Sexually Active, Single Partner - Living Situation & Occupation Living situation: Reports: with Significant Other, with Family Occupation: Unemployed Review of Systems - Review of Systems Review Of Systems: ROS reveals no pertinent complaints other than HPI. ED EXAM, GENERAL - Physical Exam Exam: See Below Free Text/Narrative:: SECONDARY TRAUMA SURVEY (16:57HRS) Exam Limited By: No Limitations General Appearance: Alert, WD/WN, No Apparent Distress, Obese Eye Exam: Bilateral Eye: EOMI, PERRL Ears: Normal External Exam, Normal Canal, Hearing Grossly Normal, Normal TMs Ear Exam: Bilateral Ear: Auricle Normal, Canal Normal, TM normal Nose: Normal Inspection, Normal Mucosa, No Blood Throat/Mouth: Normal Inspection, Normal Lips, Normal Teeth, Normal Gums, Normal Oropharynx, Normal Voice, No Airway Compromise Head: Normocephalic, Facial Tenderness (On secondary assessment patient has tenderness on palpation to right hoahaoism area. No bruising, redness, or open areas appreciated.) Neck: Supple, Tender Midline, Other (C-spine cleared by CT scan, collar removed by me at 17:10HRS, neck exam after collar removal:Patient has tenderness midline on palpation. Tenderness to right lateral neck. No brusing noted. ) Respiratory/Chest: No Respiratory Distress, Lungs Clear, Normal Breath Sounds, No Accessory Muscle Use, Chest Non-Tender Cardiovascular: Normal Peripheral Pulses, Regular Rate, Rhythm, No Edema, No Gallop, No JVD, No Murmur, No Rub GI/Abdominal: Normal Bowel Sounds, Soft, No Organomegaly, No Distention, No Abnormal Bruit, No Mass, Tender (On secondary assessment patient reports pain to right lower abd. No brusing redness or abrasions noted) (Female) Exam: Deferred Rectal (Female) Exam: Normal Exam, Normal Rectal Tone Back Exam: Normal Inspection, Full Range of Motion Extremities: Leg Pain, Other (Secondary assessment: Patient reports pain to bilateral knees. small abrasion noted to left knee. brusing to lateral aspect of right knee. Upper extremities no abnormalites noted. pulses strong. ) Neurological: Alert, Oriented, CN II-XII Intact, Normal Cognition, Normal Gait, Normal Reflexes, No Motor/Sensory Deficits, Other (GCS 15 at one hour and at discharge) Psychiatric: Normal Affect, Normal Mood Skin Exam: Warm, Dry, Intact, Normal Color, No Rash Lymphatic: No Adenopathy EKG INTERPRETATION EKG Date: 04/15/17 Time: 16:15 Rhythm: Other (sinus tachycardia) Rate (Beats/Min): 102 [place]: LAD-Left Drumore Deviation (borderline) P-Wave: Present QRS: Other (borderline R wave progression, anterior leads.) ST-T: Normal QT: Normal Course - Vital Signs Last Recorded V/S: Last Vital Signs Temp 35.7 C 04/15/17 16:03 Pulse 102 H 04/15/17 16:15 Resp 20 04/15/17 16:15 BP 81/39 L 04/15/17 16:36 Pulse Ox 95 04/15/17 16:15 - Orders/Labs/Meds Orders: Active Orders 24 hr Category Date Time Status Blood Glucose Check, Bedside [] ONETIME Care 04/15/17 16:14 Active C Collar Applied [Spinal Immobilization] [RC] Care 04/15/17 16:16 Active ASDIRECTED EKG 12 Lead [EKG Documentation Completion] [RC] STAT Care 04/15/17 16:12 Active Peripheral IV Care [] . DIRECTED Care 04/15/17 16:15 Active KEPPRA [REF] Stat Lab 04/15/17 15:12 Received Sodium Chloride 0.9% [Normal Saline] 1,000 ml Med 04/15/17 17:46 Active IV .BOLUS Sodium Chloride 0.9% [Saline Flush] Med 04/15/17 16:15 Active 10 ml FLUSH ASDIRECTED PRN Peripheral IV Insertion Adult [OM.PC] Stat Oth 04/15/17 16:12 Ordered Medication Orders Sodium Chloride (Normal Saline) 1,000 mls @ 999 mls/hr IV .BOLUS ONE Stop: 04/15/17 18:46 Last Admin: 04/15/17 18:11 Dose: 999 mls/hr Sodium Chloride (Saline Flush) 10 ml FLUSH ASDIRECTED PRN PRN Reason: Keep Vein Open Last Admin: 04/15/17 16:22 Dose: 10 ml Labs: Laboratory Tests 04/15/17 04/15/17 04/15/17 Range/Units 16:12 16:12 16:12 WBC 11.7 H (5.0-10.0) 10^3/uL RBC 4.38 (4.2-5.4) 10^6/uL Hgb 12.8 (12.0-16.0) g/dL Hct 36.7 L (37.0-47.0) % MCV 83.8 (80-100) fL MCH 29.2 (27.0-34.0) pg MCHC 34.9 (33.0-35.0) g/dL Plt Count 274 (150-450) 10^3/uL Neut % (Auto) 69.4 (42.2-75.2) % Lymph % (Auto) 20.5 (20.5-50.1) % Crane % (Auto) 4.9 (2-8) % Eos % (Auto) 4.9 H (1.0-3.0) % Baso % (Auto) 0.3 (0.0-1.0) % PT 9.2 (9.0-12.0) SEC INR 0.9 (0.9-1.2) APTT 23.0 (22.0-34.0) SEC Sodium 129 L (135-145) mmol/L Potassium 4.4 (3.6-5.0) mmol/L Chloride 95 L (101-111) mmol/L Carbon Dioxide 21.0 (21.0-31.0) mmol/L Anion Gap 17.4 BUN 27 H (7-18) mg/dL Creatinine 2.2 H (0.6-1.3) mg/dL Est Cr Clr Drug Dosing 32.92 mL/min Estimated GFR (MDRD) 24 BUN/Creatinine Ratio 12.27 Glucose 411 H* (74-105) mg/dL POC Glucose (70-105) mg/dl Calcium 8.6 (8.4-10.2) mg/dl Total Bilirubin 0.7 (0.2-1.0) mg/dL AST 28 (10-42) IU/L ALT 10 (10-60) IU/L Alkaline Phosphatase 83 (42-121) IU/L Troponin I < 0.02 (0.00-0.02) ng/ml Total Protein 7.9 (6.7-8.2) g/dl Albumin 3.5 (3.2-5.5) g/dl Globulin 4.4 Albumin/Globulin Ratio 0.80 Amylase 43 (28-100) U/L Lipase 40 (22-51) U/L Urine Color (YELLOW) Urine Appearance (CLEAR) Urine pH (5.0-9.0) Ur Specific [place] (1.005-1.030) Urine Protein (NEGATIVE) Urine Glucose (UA) (NEGATIVE) Urine Ketones (NEGATIVE) Urine Occult Blood (NEGATIVE) Urine Nitrite (NEGATIVE) Urine Bilirubin (NEGATIVE) Urine Urobilinogen (0.2-1.0) mg/dL Ur Leukocyte Esterase (NEGATIVE) Urine RBC /HPF Urine WBC (0-5/HPF) /HPF Ur Epithelial Cells /HPF Urine Bacteria (0-FEW/HPF) /HPF Urine HCG, Qual Urine Opiates Screen (NEGATIVE) Ur Oxycodone Screen (NEGATIVE) Urine Methadone Screen (NEGATIVE) Ur Barbiturates Screen (NEGATIVE) U Tricyclic Antidepress (NEGATIVE) Ur Phencyclidine Scrn (NEGATIVE) Ur Amphetamine Screen (NEGATIVE) U Methamphetamines Scrn (NEGATIVE) Urine MDMA Screen (NEGATIVE) U Benzodiazepines Scrn (NEGATIVE) Urine Cocaine Screen (NEGATIVE) U Marijuana (THC) Screen (NEGATIVE) Ethyl Alcohol < 5 mg/dL Ketones 04/15/17 04/15/17 04/15/17 Range/Units 16:12 16:20 18:00 WBC (5.0-10.0) 10^3/uL RBC (4.2-5.4) 10^6/uL Hgb (12.0-16.0) g/dL Hct (37.0-47.0) % MCV (80-100) fL MCH (27.0-34.0) pg MCHC (33.0-35.0) g/dL Plt Count (150-450) 10^3/uL Neut % (Auto) (42.2-75.2) % Lymph % (Auto) (20.5-50.1) % Crane % (Auto) (2-8) % Eos % (Auto) (1.0-3.0) % Baso % (Auto) (0.0-1.0) % PT (9.0-12.0) SEC INR (0.9-1.2) APTT (22.0-34.0) SEC Sodium (135-145) mmol/L Potassium (3.6-5.0) mmol/L Chloride (101-111) mmol/L Carbon Dioxide (21.0-31.0) mmol/L Anion Gap BUN (7-18) mg/dL Creatinine (0.6-1.3) mg/dL Est Cr Clr Drug Dosing mL/min Estimated GFR (MDRD) BUN/Creatinine Ratio Glucose (74-105) mg/dL POC Glucose 429 H* (70-105) mg/dl Calcium (8.4-10.2) mg/dl Total Bilirubin (0.2-1.0) mg/dL AST (10-42) IU/L ALT (10-60) IU/L Alkaline Phosphatase (42-121) IU/L Troponin I (0.00-0.02) ng/ml Total Protein (6.7-8.2) g/dl Albumin (3.2-5.5) g/dl Globulin Albumin/Globulin Ratio Amylase (28-100) U/L Lipase (22-51) U/L Urine Color Yellow (YELLOW) Urine Appearance Cloudy (CLEAR) Urine pH 5.0 (5.0-9.0) Ur Specific [place] 1.025 (1.005-1.030) Urine Protein >=300 H (NEGATIVE) Urine Glucose (UA) 500 H (NEGATIVE) Urine Ketones Negative (NEGATIVE) Urine Occult Blood Trace-intact H (NEGATIVE) Urine Nitrite Negative (NEGATIVE) Urine Bilirubin Small H (NEGATIVE) Urine Urobilinogen 1.0 (0.2-1.0) mg/dL Ur Leukocyte Esterase Small H (NEGATIVE) Urine RBC 0-5 /HPF Urine WBC Packed H (0-5/HPF) /HPF Ur Epithelial Cells Moderate H /HPF Urine Bacteria Many H (0-FEW/HPF) /HPF Urine HCG, Qual Urine Opiates Screen (NEGATIVE) Ur Oxycodone Screen (NEGATIVE) Urine Methadone Screen (NEGATIVE) Ur Barbiturates Screen (NEGATIVE) U Tricyclic Antidepress (NEGATIVE) Ur Phencyclidine Scrn (NEGATIVE) Ur Amphetamine Screen (NEGATIVE) U Methamphetamines Scrn (NEGATIVE) Urine MDMA Screen (NEGATIVE) U Benzodiazepines Scrn (NEGATIVE) Urine Cocaine Screen (NEGATIVE) U Marijuana (THC) Screen (NEGATIVE) Ethyl Alcohol mg/dL Ketones Negative 04/15/17 04/15/17 Range/Units 18:00 18:00 WBC (5.0-10.0) 10^3/uL RBC (4.2-5.4) 10^6/uL Hgb (12.0-16.0) g/dL Hct (37.0-47.0) % MCV (80-100) fL MCH (27.0-34.0) pg MCHC (33.0-35.0) g/dL Plt Count (150-450) 10^3/uL Neut % (Auto) (42.2-75.2) % Lymph % (Auto) (20.5-50.1) % [place] % (Auto) (2-8) % Eos % (Auto) (1.0-3.0) % Baso % (Auto) (0.0-1.0) % PT (9.0-12.0) SEC INR (0.9-1.2) APTT (22.0-34.0) SEC Sodium (135-145) mmol/L Potassium (3.6-5.0) mmol/L Chloride (101-111) mmol/L Carbon Dioxide (21.0-31.0) mmol/L Anion Gap BUN (7-18) mg/dL Creatinine (0.6-1.3) mg/dL Est Cr Clr Drug Dosing mL/min Estimated GFR (MDRD) BUN/Creatinine Ratio Glucose (74-105) mg/dL POC Glucose (70-105) mg/dl Calcium (8.4-10.2) mg/dl Total Bilirubin (0.2-1.0) mg/dL AST (10-42) IU/L ALT (10-60) IU/L Alkaline Phosphatase (42-121) IU/L Troponin I (0.00-0.02) ng/ml Total Protein (6.7-8.2) g/dl Albumin (3.2-5.5) g/dl Globulin Albumin/Globulin Ratio Amylase (28-100) U/L Lipase (22-51) U/L Urine Color (YELLOW) Urine Appearance (CLEAR) Urine pH (5.0-9.0) Ur Specific [place] (1.005-1.030) Urine Protein (NEGATIVE) Urine Glucose (UA) (NEGATIVE) Urine Ketones (NEGATIVE) Urine Occult Blood (NEGATIVE) Urine Nitrite (NEGATIVE) Urine Bilirubin (NEGATIVE) Urine Urobilinogen (0.2-1.0) mg/dL Ur Leukocyte Esterase (NEGATIVE) Urine RBC /HPF Urine WBC (0-5/HPF) /HPF Ur Epithelial Cells /HPF Urine Bacteria (0-FEW/HPF) /HPF Urine HCG, Qual Negative Urine Opiates Screen Negative (NEGATIVE) Ur Oxycodone Screen Negative (NEGATIVE) Urine Methadone Screen Negative (NEGATIVE) Ur Barbiturates Screen Negative (NEGATIVE) U Tricyclic Antidepress Negative (NEGATIVE) Ur Phencyclidine Scrn Negative (NEGATIVE) Ur Amphetamine Screen Negative (NEGATIVE) U Methamphetamines Scrn Negative (NEGATIVE) Urine MDMA Screen Negative (NEGATIVE) U Benzodiazepines Scrn Negative (NEGATIVE) Urine Cocaine Screen Negative (NEGATIVE) U Marijuana (THC) Screen Negative (NEGATIVE) Ethyl Alcohol mg/dL Ketones Meds: Medications Generic Name Dose Route Start Last Admin Trade Name Freq PRN Reason Stop Dose Admin Sodium Chloride 1,000 mls @ 999 mls/hr 04/15/17 17:46 04/15/17 18:11 Normal Saline IV 04/15/17 18:46 999 mls/hr .BOLUS ONE Administration Sodium Chloride 10 ml 04/15/17 16:15 04/15/17 16:22 Saline Flush FLUSH 10 ml ASDIRECTED PRN Administration Keep Vein Open Discontinued Medications Generic Name Dose Route Start Last Admin Trade Name Freq PRN Reason Stop Dose Admin Sodium Chloride 1,000 mls @ 999 mls/hr 04/15/17 16:25 04/15/17 16:10 Normal Saline IV 04/15/17 17:25 999 mls/hr .BOLUS ONE Administration Iopamidol 100 ml 04/15/17 16:26 04/15/17 16:30 Isovue-300 (61%) IVPUSH 04/15/17 16:27 100 ml ONETIME ONE Administration - Radiology Interpretation Free Text/Narrative:: CT cervical spine: Arthritis. No fractures or dislocations cervical spine. See rad report. CT head: Subtle new microvascular ischemic infarct, right parietal lobe(axial scan slice#22) new since comparison study. Bilateral maxillary sinusitis. See rad report. CT abdomen, pelvis and chest: No sign of skeletal fracture, hematoma, visceral laceration or mechanical bowel obstruction. No pneumothorax or free intraperitoneal air. No effusions or ascites. No cystectomy. Left adrenal lesion. Diverticulosis colon. See rad report. CT Results Date: 04/15/17 Departure - Departure Time of Disposition: 18:42 ((admit to Dr. Fischer)) Disposition: Refer to Observation Condition: Undetermined Clinical Impression: Hyponatremia Hypotension Qualifiers: Hypotension type: unspecified hypotension type Qualified Code(s): I95.9 - Hypotension, unspecified Concussion Qualifiers: Encounter type: initial encounter Loss of consciousness presence/duration: with LOC of 30 min or less Qualified Code(s): S06.0X1A - Concussion with loss of consciousness of 30 minutes or less, initial encounter Fall at home Qualifiers: Encounter type: initial encounter Qualified Code(s): W19.XXXA - Unspecified fall, initial encounter; Y92.009 - Unspecified place in unspecified non- institutional (private) residence as the place of occurrence of the external cause; Y92.009 - Unspecified place in unspecified non-institutional (private) residence as the place of occurrence of the external cause CVA (cerebral vascular accident) Qualifiers: CVA mechanism: other Qualified Code(s): I63.8 - Other cerebral infarction Diabetes mellitus type 2, uncontrolled Qualifiers: Diabetes mellitus complication status: with hyperglycemia 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 DIRECTED Sodium Chloride 0.9% [Saline Flush] 10 ml FLUSH ASDIRECTED PRN 04/15/17 16:16 C Collar Applied [Spinal Immobilization] [RC] ASDIRECTED 04/15/17 17:46 Sodium Chloride 0.9% [Normal Saline] 1,000 ml IV .BOLUS - Assessment/Plan Last 24 Hours: My Active Orders 04/15/17 15:12 KEPPRA [REF] Stat 04/15/17 16:12 EKG 12 Lead [EKG Documentation Completion] [RC] STAT Peripheral IV Insertion Adult [OM.PC] Stat 04/15/17 16:14 Blood Glucose Check, Bedside [RC] ONETIME 04/15/17 16:15 Peripheral IV Care [RC] . DIRECTED Sodium Chloride 0.9% [Saline Flush] 10 ml FLUSH ASDIRECTED PRN 04/15/17 16:16 C Collar Applied [Spinal Immobilization] [RC] ASDIRECTED 04/15/17 17:46 Sodium Chloride 0.9% [Normal Saline] 1,000 ml IV .BOLUS I have read and agree with the documentation that has been completed regarding this visit. By signing this record, I attest that the documentation was completed in my physical presence and is an accurate record of the encounter.
[2017-04-15] MEDS ORDERED: Albuterol 6.7 GM Inhaler INH PRN ×2 (19:20→21:44)
[2017-04-15] MEDS ORDERED: Ondansetron 4 MG/2 ML SDV IVPUSH PRN (19:22)
--- NOTE | 2017-04-15 19:43 | PCM.HP ---
H&P History of Present Illness - General Date of Service: 04/15/17 Admit Problem/Dx: Admission Diagnosis/Problem Admission Diagnosis/Problem Fall Source of Information: Patient, Provider (ER physician) History Limitations: Reports: No Limitations - History of Present Illness Initial Comments - Free Text/Narative: The patient is a 46-year-old lady with a history of diabetes, hypertension, chronic pain, seizure disorder, prior stroke on aspirin and Plavix. The patient was undergoing off on the stairs when she fell backwards. She denies any chest pain, lightheadedness, bleeding of seizure onset. She fell backwards she hit her head. She might have had a few seconds of loss of consciousness but this was not observed. Family was around and attended to her quickly. No seizure was observed. - Related Data Allergies/Adverse Reactions: Allergies Allergy/AdvReac Type Severity Reaction Status Date / Time No Known Allergies Allergy Verified 04/15/17 16:23 Home Medications: Home Meds Albuterol [Proair HFA] 2 puff INH ASDIRECTED PRN 08/21/13 [History] Fluticasone Propionate [Flovent HFA 110 MCG] 2 puff INH ASDIRECTED PRN 08/21/13 [History] Lisinopril 40 mg PO DAILY 08/21/13 [History] sitaGLIPtin Phos/Metformin HCl [Janumet 50-1,000 MG] 1,000 mg PO DAILY 08/21/13 [History] Insulin Aspart [Novolog Flexpen] 30 units SQ TID PRN 03/17/15 [History] Insulin Glarg,Human.Rec.Analog [Lantus] 30 units SQ BID 03/17/15 [History] Gabapentin [Gabapentin] 600 mg PO TID 09/07/15 [History] Aspirin [Ecotrin] 81 mg PO DAILY 10/01/16 [History] Ibuprofen [Motrin] 800 mg PO ASDIRECTED PRN 10/01/16 [History] Clopidogrel Bisulfate [Clopidogrel] 1 tab PO DAILY 02/13/17 [History] Hydrochlorothiazide [Hydrochlorothiazide] 1 tab PO DAILY 02/13/17 [History] Pregabalin [Lyrica] 1 tab PO TID 02/13/17 [History] Rosuvastatin Calcium 1 tab PO BEDTIME 02/13/17 [History] amLODIPine [Norvasc] 1 tab PO DAILY 02/13/17 [History] levETIRAcetam [Keppra] 1 tab PO BID 02/13/17 [History] Past Medical History HEENT History: Reports: None Cardiovascular History: Reports: Hypertension, Other (See Below) Other Cardiovascular History: hx rhuematic fever Respiratory History: Reports: Asthma Gastrointestinal History: Reports: None Genitourinary History: Reports: None 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: Musculoskeletal History: Reports: Back Pain, Chronic, Osteoarthritis Neurological History: Reports: Neuropathy, Diabetic, Neuropathy, Peripheral, Seizure, TIA Other Neuro History: mini strokes Psychiatric History: Reports: None Endocrine/Metabolic History: Reports: Diabetes, Type II, IDDM, Obesity/BMI 30+ Hematologic History: Reports: None Immunologic History: Reports: None Oncologic (Cancer) History: Reports: None Dermatologic History: Reports: None - Infectious Disease History Infectious Disease History: Reports: Chicken Pox - Past Surgical History Head Surgeries/Procedures: Reports: None Female Surgical History: Reports: Section Social & Family History - Family History Family Medical History: Noncontributory Respiratory: Reports: Asthma Other Respiratory Family Hisory: Brother Endocrine/Metabolic: Reports: Diabetes, type II Other Endocrine/Metabolic Family History: Brother - Tobacco Use Smoking Status *Q: Current Every Day Smoker Years of Tobacco use: 20 Packs/Tins Daily: 0.1 Used Tobacco, but Quit: No Month Tobacco Last Used: 02 Second Hand Smoke Exposure: Yes - Caffeine Use Caffeine Use: Reports: Soda - Alcohol Use Days Per Week of Alcohol Use: 0 - Recreational Drug Use Recreational Drug Use: No - Sexual History Sexual History: Reports: Sexually Active, Single Partner - Living Situation & Occupation Living situation: Reports: with Significant Other, with Family Occupation: Unemployed H&P Review of Systems - Review of Systems: Review Of Systems: See Below General: Denies: Fever Pulmonary: Denies: Shortness of Breath Cardiovascular: Denies: Chest Pain Gastrointestinal: Denies: Abdominal Pain Psychiatric: Denies: Confusion Exam - Exam Exam: See Below - Vital Signs Vital Signs: Last Vital Signs Temp 36.6 C 04/15/17 18:54 Pulse 87 04/15/17 18:54 Resp 20 04/15/17 18:54 BP 106/62 04/15/17 18:54 Pulse Ox 98 04/15/17 18:54 Weight: 109.951 kg - Exam General: Alert, Oriented Neck: Supple Lungs: Clear to Auscultation, Normal Respiratory Effort Cardiovascular: Regular Rate, Regular Rhythm GI/Abdominal Exam: Normal Bowel Sounds, Soft, Non-Tender Extremities: No Pedal Edema Neurological: Cranial Nerves Intact, Strength Equal Bilateral, Other (Normal bilateral [id number] test) Neuro Extensive - Mental Status: Alert, Oriented x3, Normal Mood/Affect Psychiatric: Alert, Normal Affect, Normal Mood - Patient Data Result Diagrams: 04/15/17 16:12 04/15/17 16:12 *Q Meaningful Use (ADM) - VTE *Q VTE Criteria *Q: - Stroke *Q Stroke Criteria *Q: - AMI *Q AMI Criteria *Q: - Problem List (1) Hypotension SNOMED Code(s): 72532619 ICD Code: I95.9 - HYPOTENSION, UNSPECIFIED Status: Acute Current Visit: Yes (2) Acute renal failure SNOMED Code(s): 46028935 ICD Code: N17.9 - ACUTE KIDNEY FAILURE, UNSPECIFIED Status: Acute Current Visit: Yes (3) Diabetes mellitus type 2, uncontrolled SNOMED Code(s): 19089069 ICD Code: E11.65 - TYPE 2 DIABETES MELLITUS WITH HYPERGLYCEMIA Status: Acute Current Visit: Yes Qualifiers: Diabetes mellitus complication status: with hyperglycemia Diabetes mellitus residential insulin use: with residential use Qualified Code(s): E11.65 - Type 2 diabetes mellitus with hyperglycemia; Z79.4 - termination clerk (current) use of insulin; Z79.4 - termination clerk (current) use of insulin; Z79.4 - termination clerk ( current) use of insulin; Z79.4 - snf (current) use of insulin (4) Fall at home SNOMED Code(s): 23381895 ICD Code: W19.XXXA - UNSPECIFIED FALL, INITIAL ENCOUNTER; Y92.009 - UNSP PLACE IN UNSP NON-INSTITUT (PRIVATE) RESIDENCE PLACE Status: Acute Current Visit: Yes Qualifiers: Encounter type: initial encounter Qualified Code(s): W19.XXXA - Unspecified fall, initial encounter; Y92.009 - Unspecified place in unspecified non-institutional (private) residence as the place of occurrence of the external cause; Y92.009 - Unspecified place in unspecified non-institutional ( private) residence as the place of occurrence of the external cause Problem List Initiated/Reviewed/Updated: Yes Orders Last 24hrs: Active Orders 24 hr Category Date Time Status Patient Status [ADT] Routine ADT 04/15/17 19:22 Active Antiembolic Devices [RC] PER UNIT ROUTINE Care 04/15/17 19:25 Active Glucose [Blood Glucose Check, Bedside] [RC] QIDACANDBED Care 04/15/17 19:06 Active Oxygen Therapy [RC] PRN Care 04/15/17 19:22 Active Telemetry Monitoring [Cardiac Monitoring] [RC] . Care 04/15/17 19:06 Active DIRECTED Up With Assistance [RC] ASDIRECTED Care 04/15/17 19:22 Active VTE/DVT Education [RC] PER UNIT ROUTINE Care 04/15/17 19:22 Active Vital Signs [RC] Q4H Care 04/15/17 19:22 Active Consistent Carbohydrate Diet [DIET] Diet 04/15/17 Breakfast Active BASIC METABOLIC PANEL,BMP [CHEM] AM Lab 04/16/17 05:15 Ordered CBC WITH AUTO DIFF [HEME] AM Lab 04/16/17 05:15 Ordered Acetaminophen [Tylenol] Med 04/15/17 19:22 Active 650 mg PO Q4H PRN Albuterol [Proventil HFA] Med 04/15/17 19:20 Ordered DOSE gm INH ASDIRECTED PRN Aspirin [Halfprin] Med 04/16/17 09:00 Active 81 mg PO DAILY Clopidogrel [Plavix] Med 04/16/17 09:00 Ordered DOSE mg PO DAILY Gabapentin Med 04/15/17 21:00 Ordered 600 mg PO TID Heparin Sodium Med 04/15/17 22:00 Active 5,000 units SUBCUT Q8HR Insulin Aspart [NovoLOG] Med 04/15/17 21:00 Ordered 10 unit SUBCUT TID Insulin Aspart [NovoLOG] Med 04/16/17 08:00 Active See Protocol SUBCUT TIDAC Insulin Glarg,Human.Rec.Analog Med 04/15/17 21:00 Ordered 30 units SQ BID Lidocaine 5% [Lidoderm 5%] Med 04/15/17 19:45 Ordered 700 mg TOP Q24H Ondansetron [Zofran] Med 04/15/17 19:22 Active 4 mg IVPUSH Q4H PRN Rosuvastatin Calcium [Rosuvastatin Calcium] Med 04/15/17 21:00 Ordered 1 tab PO BEDTIME Sodium Chloride 0.9% [Normal Saline] 1,000 ml Med 04/15/17 19:30 Ordered IV ASDIRECTED Zolpidem [Ambien] Med 04/15/17 19:22 Active 5 mg PO BEDTIME PRN levETIRAcetam [Keppra] Med 04/15/17 21:00 Active 500 mg PO BID Antiembolic Hose [OM.PC] Per Unit Routine Oth 04/15/17 19:24 Ordered K Pad [Heat Therapy] [OM.PC] Routine Oth 04/15/17 19:27 Ordered Resuscitation Status Routine Resus Stat 04/15/17 19:22 Ordered Medication Orders Acetaminophen (Tylenol) 650 mg PO Q4H PRN PRN Reason: Pain (Mild 1-3)/fever Albuterol (Proventil Hfa) gm INH ASDIRECTED PRN PRN Reason: Dyspnea Aspirin (Halfprin) 81 mg PO DAILY DAVID Clopidogrel Bisulfate (Plavix) mg PO DAILY DAVID Heparin Sodium (Porcine) (Heparin Sodium) 5,000 units SUBCUT Q8HR DAVID Sodium Chloride (Normal Saline) 1,000 mls @ 125 mls/hr IV ASDIRECTED DAVID Insulin Aspart (Novolog) 0 unit SUBCUT TIDAC DAVID PRN Reason: Protocol Insulin Aspart (Novolog) 10 unit SUBCUT TID DAVID Levetiracetam (Keppra) 500 mg PO BID DAVID Lidocaine (Lidoderm 5%) 700 mg TOP Q24H DAVID Non-Formulary Medication (Gabapentin) 600 mg PO TID DAVID Non-Formulary Medication (Insulin Glarg,Human.Rec.Analog) 30 units SQ BID DAVID Ondansetron HCl (Zofran) 4 mg IVPUSH Q4H PRN PRN Reason: Nausea/Vomiting Rosuvastatin Calcium (Crestor) 20 mg PO BEDTIME DAVID Sodium Chloride (Saline Flush) 10 ml FLUSH ASDIRECTED PRN PRN Reason: Keep Vein Open Last Admin: 04/15/17 16:22 Dose: 10 ml Zolpidem Tartrate (Ambien) 5 mg PO BEDTIME PRN PRN Reason: Sleep Assessment/Plan Comment:: Fall It is unclear if the patient had a syncopal episode after the fall. She denies any symptoms prior to the fall. She was going up on the stairs and fell backwards hitting the head. CT of the head shows no intracranial bleed. He described subtle, new microvascular ischemic infarct, right parietal lobe new compared to 02/13/17 The patient appears to have a history of prior stroke. The patient currently has normal neurologic deficit. I doubt that the patient had an acute stroke that caused the falling. Well continue on Plavix, statin, aspirin History of seizure disorder No apparent seizure with this episode. Continue Keppra Hypotension noted in the emergency room. The patient has a history of hypertension. Was on lisinopril and Norvasc, hctz. I will hold these medications. Acute renal failure The patients admission creatinine is 2.2 From Epic system the patients last creatinine last October was around 1. This might relate to uncontrolled diabetes, dehydration, possibly due to hypotension, VAL inhibitor, NSAIDS. Treat with hydration. Hold blood pressure medications. Follow blood sugars, electrolytes. Hold nonsteroidals that she has been taking for back pain Uncontrolled diabetes Given the patients creatinine elevation she is not a good candidate for metformin Continue to treat with Levemir and mealtime Humalog Monitor blood sugars and adjust as needed Hyponatremia This is pseudohyponatremia related to high blood sugars Control diabetes Hydrate with IV fluids Abnormal urine analysis I think this is a contaminated sample Hold antibiotics Chronic back pain Try to avoid nonsteroidals due to renal failure Try to avoid narcotics due to seizure disorder Reveals Tylenol, Lidoderm, nonpharmaceutical, flexeril, methods. DVT prophylaxis will be with subcutaneous heparin
[2017-04-15] MEDS: Rosuvastatin 10 MG Tab PO SCH (20:51)
[2017-04-15] MEDS: levETIRAcetam 500 MG Tab PO SCH (20:51)
[2017-04-15] MEDS: Lidocaine 5% 700 MG Patch TOP SCH (20:51)
[2017-04-15] MEDS: Heparin Sodium 5,000 Units/ML Vial SUBCUT SCH ×2 (20:52→21:32)
[2017-04-15] MEDS ORDERED: Gabapentin 300 MG Cap PO SCH (21:00)
[2017-04-15] MEDS: Acetaminophen 325 MG Tab PO PRN (21:06)
[2017-04-15] MEDS ORDERED: Insulin Aspart 100 Units/ML 3 ML Pen SUBCUT ONE (21:18)
[2017-04-15] MEDS: Insulin Detemir 100 Units/ML 3 ML Pen SUBCUT SCH (21:26)
[2017-04-15] MEDS: Insulin Aspart 100 Units/ML 3 ML Pen SUBCUT SCH ×3 (21:28→22:39)
[2017-04-15] MEDS ORDERED: Gabapentin 100 MG Cap PO ONE (22:23)
[2017-04-15] MEDS: Zolpidem 5 MG Tab PO PRN (22:36)
[2017-04-16] MEDS: Sodium Chloride 0.9% 1,000 ML IV SCH ×3 (03:56→23:08)
[2017-04-16] MEDS: Heparin Sodium 5,000 Units/ML Vial SUBCUT SCH ×3 (06:24→23:35)
[2017-04-16] MEDS: Acetaminophen 325 MG Tab PO PRN ×2 (06:41→20:01)
[2017-04-16] MEDS ORDERED: Insulin Aspart 100 Units/ML 3 ML Pen SUBCUT ONE (07:42)
[2017-04-16] MEDS: Gabapentin 300 MG Cap PO SCH ×3 (09:07→21:15)
[2017-04-16] MEDS: Insulin Aspart 100 Units/ML 3 ML Pen SUBCUT SCH ×6 (09:08→21:20)
[2017-04-16] MEDS: levETIRAcetam 500 MG Tab PO SCH ×2 (09:08→21:15)
[2017-04-16] MEDS: Clopidogrel 75 MG Tab PO SCH (09:08)
[2017-04-16] MEDS: Aspirin 81 MG Tab.EC PO SCH (09:08)
[2017-04-16] MEDS: Insulin Detemir 100 Units/ML 3 ML Pen SUBCUT SCH ×2 (09:10→21:21)
[2017-04-16] MEDS ORDERED: Insulin Detemir 100 Units/ML 3 ML Pen SUBCUT SCH (10:11)
[2017-04-16] MEDS ORDERED: Insulin Isophane NPH, Human 100 Units/ML 10 ML Vial SUBCUT ONE (10:51)
--- NOTE | 2017-04-16 11:00 | PCM.PN ---
- General Info Date of Service: 04/16/17 Admission Dx/Problem (Free Text): Admission Diagnosis/Problem Admission Diagnosis/Problem Fall Subjective Update: blood sugars have been significantly elevated. Complaining of some moderate back pain, progressive movements, since the falling. Somewhat better with heat pad and Tylenol but not Completely relieved. No nausea or vomiting. Functional Status: Reports: Tolerating Diet. Denies: Pain Controlled - Review of Systems General: Denies: Fever Pulmonary: Denies: Shortness of Breath Cardiovascular: Denies: Chest Pain Gastrointestinal: Denies: Abdominal Pain, Vomiting Genitourinary: Denies: Dysuria Neurological: Denies: Confusion - Patient Data Vitals - Most Recent: Last Vital Signs Temp 36.2 C 04/16/17 03:00 Pulse 95 04/16/17 03:00 Resp 18 04/16/17 03:00 BP 110/71 04/16/17 03:00 Pulse Ox 98 04/16/17 03:00 Weight - Most Recent: 109.951 kg I&O - Last 24 Hours: Intake & Output 04/15/17 04/16/17 04/16/17 22:59 06:59 14:59 Intake Total 360 1000 Balance 360 1000 Lab Results Last 24 Hours: Laboratory Results - last 24 hr 04/15/17 04/16/17 04/16/17 Range/Units 21:10 06:10 06:10 WBC 11.9 H (5.0-10.0) 10^3/uL RBC 4.00 L (4.2-5.4) 10^6/uL Hgb 11.7 L (12.0-16.0) g/dL Hct 33.6 L (37.0-47.0) % MCV 84.0 (80-100) fL MCH 29.3 (27.0-34.0) pg MCHC 34.8 (33.0-35.0) g/dL Plt Count 257 (150-450) 10^3/uL Neut % (Auto) 73.4 (42.2-75.2) % Lymph % (Auto) 16.0 L (20.5-50.1) % [place] % (Auto) 6.0 (2-8) % Eos % (Auto) 4.3 H (1.0-3.0) % Baso % (Auto) 0.3 (0.0-1.0) % Sodium 130 L (135-145) mmol/L Potassium 4.6 (3.6-5.0) mmol/L Chloride 101 (101-111) mmol/L Carbon Dioxide 20.0 L (21.0-31.0) mmol/L Anion Gap 13.6 BUN 30 H (7-18) mg/dL Creatinine 1.4 H (0.6-1.3) mg/dL Est Cr Clr Drug Dosing 51.73 mL/min Estimated GFR (MDRD) 41 Glucose 511 H* (74-105) mg/dL POC Glucose 452 H* (70-105) mg/dl Calcium 8.3 L (8.4-10.2) mg/dl 04/16/17 Range/Units 08:08 WBC (5.0-10.0) 10^3/uL RBC (4.2-5.4) 10^6/uL Hgb (12.0-16.0) g/dL Hct (37.0-47.0) % MCV (80-100) fL MCH (27.0-34.0) pg MCHC (33.0-35.0) g/dL Plt Count (150-450) 10^3/uL Neut % (Auto) (42.2-75.2) % Lymph % (Auto) (20.5-50.1) % [place] % (Auto) (2-8) % Eos % (Auto) (1.0-3.0) % Baso % (Auto) (0.0-1.0) % Sodium (135-145) mmol/L Potassium (3.6-5.0) mmol/L Chloride (101-111) mmol/L Carbon Dioxide (21.0-31.0) mmol/L Anion Gap BUN (7-18) mg/dL Creatinine (0.6-1.3) mg/dL Est Cr Clr Drug Dosing mL/min Estimated GFR (MDRD) Glucose (74-105) mg/dL POC Glucose 425 H* (70-105) mg/dl Calcium (8.4-10.2) mg/dl Med Orders - Current: Current Medications Acetaminophen (Tylenol) 650 mg PO Q4H PRN PRN Reason: Pain (Mild 1-3)/fever Last Admin: 04/16/17 06:41 Dose: 650 mg Hydrocodone Bitart/Acetaminophen ([place] 325-5 Mg) 1 tab PO Q4H PRN PRN Reason: severe pain Albuterol (Proventil Hfa) 0 gm INH Q4H PRN PRN Reason: Shortness of Breath Aspirin (Halfprin) 81 mg PO DAILY [facility] Last Admin: 04/16/17 09:08 Dose: 81 mg Clopidogrel Bisulfate (Plavix) 75 mg PO DAILY [facility] Last Admin: 04/16/17 09:08 Dose: 75 mg Gabapentin (Neurontin) 300 mg PO TID [facility] Last Admin: 04/16/17 09:07 Dose: 300 mg Heparin Sodium (Porcine) (Heparin Sodium) 5,000 units SUBCUT Q8HR [facility] Last Admin: 04/16/17 06:24 Dose: 5,000 units Sodium Chloride (Normal Saline) 1,000 mls @ 125 mls/hr IV ASDIRECTED [facility] Last Admin: 04/16/17 03:56 Dose: 125 mls/hr Insulin Aspart (Novolog) 0 unit SUBCUT TIDAC [facility] PRN Reason: Protocol Last Admin: 04/16/17 09:08 Dose: 8 units Insulin Aspart (Novolog) 10 unit SUBCUT TID [facility] Last Admin: 04/16/17 09:09 Dose: 10 units Insulin Detemir (Levemir) 40 unit SUBCUT BID [facility] Levetiracetam (Keppra) 500 mg PO BID [facility] Last Admin: 04/16/17 09:08 Dose: 500 mg Lidocaine (Lidoderm 5%) 700 mg TOP Q24H [facility] Last Admin: 04/15/17 20:51 Dose: 700 mg Miscellaneous Information (Remove Patch) 0 ea TRDERM DAILY@0800 [facility] Last Admin: 04/16/17 09:15 Dose: 1 ea Ondansetron HCl (Zofran) 4 mg IVPUSH Q4H PRN PRN Reason: Nausea/Vomiting Rosuvastatin Calcium (Crestor) 20 mg PO BEDTIME [facility] Last Admin: 04/15/17 20:51 Dose: 20 mg Sodium Chloride (Saline Flush) 10 ml FLUSH ASDIRECTED PRN PRN Reason: Keep Vein Open Last Admin: 04/15/17 16:22 Dose: 10 ml Zolpidem Tartrate (Ambien) 5 mg PO BEDTIME PRN PRN Reason: Sleep Last Admin: 04/15/17 22:36 Dose: 5 mg Discontinued Medications Albuterol (Proventil Hfa) 0 gm INH ASDIRECTED PRN PRN Reason: Dyspnea Gabapentin (Neurontin) 600 mg PO TID [facility] Last Admin: 04/15/17 23:19 Dose: Not Given Gabapentin (Neurontin) 100 mg PO ONETIME ONE Stop: 04/15/17 22:24 Last Admin: 04/15/17 22:43 Dose: 100 mg Sodium Chloride (Normal Saline) 1,000 mls @ 999 mls/hr IV .BOLUS ONE Stop: 04/15/17 17:25 Last Admin: 04/15/17 16:10 Dose: 999 mls/hr Sodium Chloride (Normal Saline) 1,000 mls @ 999 mls/hr IV .BOLUS ONE Stop: 04/15/17 18:46 Last Admin: 04/15/17 18:11 Dose: 999 mls/hr Insulin Aspart (Novolog) 10 unit SUBCUT ONETIME ONE Stop: 04/15/17 21:19 Last Admin: 04/15/17 22:38 Dose: 10 units Insulin Aspart (Novolog) 20 unit SUBCUT ONETIME ONE Stop: 04/16/17 07:43 Last Admin: 04/16/17 08:10 Dose: 20 units Insulin Detemir (Levemir) 30 unit SUBCUT BID [facility] Last Admin: 04/16/17 09:10 Dose: 30 units Insulin Detemir (Levemir) 40 unit SUBCUT BID [facility] Insulin Human NPH (Novolin N) 10 unit SUBCUT ONETIME ONE Stop: 04/16/17 10:52 Iopamidol (Isovue-300 (61%)) 100 ml IVPUSH ONETIME ONE Stop: 04/15/17 16:27 Last Admin: 04/15/17 16:30 Dose: 100 ml - Exam General: Alert, Oriented Neck: Supple Lungs: Clear to Auscultation, Normal Respiratory Effort Cardiovascular: Regular Rate, Regular Rhythm GI/Abdominal Exam: Normal Bowel Sounds, Soft, Non-Tender Extremities: No Pedal Edema - Problem List & Annotations (1) Hypotension SNOMED Code(s): 67473652 Code(s): I95.9 - HYPOTENSION, UNSPECIFIED Status: Acute Current Visit: Yes (2) Acute renal failure SNOMED Code(s): 43953620 Code(s): N17.9 - ACUTE KIDNEY FAILURE, UNSPECIFIED Status: Acute Current Visit: Yes (3) Diabetes mellitus type 2, uncontrolled SNOMED Code(s): 17125013 Code(s): E11.65 - TYPE 2 DIABETES MELLITUS WITH HYPERGLYCEMIA Status: Acute Current Visit: Yes Qualifiers: Diabetes mellitus complication status: with hyperglycemia Diabetes mellitus termite control representative insulin use: with correction use Qualified Code(s): E11.65 - Type 2 diabetes mellitus with hyperglycemia; Z79.4 - watermelon harvesting supervisor (current) use of insulin; Z79.4 - watermelon harvesting supervisor (current) use of insulin; Z79.4 - watermelon harvesting supervisor ( current) use of insulin; Z79.4 - watermelon harvesting supervisor (current) use of insulin (4) Fall at home SNOMED Code(s): 19259996 Code(s): W19.XXXA - UNSPECIFIED FALL, INITIAL ENCOUNTER; Y92.009 - UNSP PLACE IN UNSP NON-INSTITUT (PRIVATE) RESIDENCE PLACE Status: Acute Current Visit: Yes Qualifiers: Encounter type: initial encounter Qualified Code(s): W19.XXXA - Unspecified fall, initial encounter; Y92.009 - Unspecified place in unspecified non-institutional (private) residence as the place of occurrence of the external cause; Y92.009 - Unspecified place in unspecified non-institutional ( private) residence as the place of occurrence of the external cause - Problem List Review Problem List Initiated/Reviewed/Updated: Yes - My Orders Last 24 Hours: My Active Orders 04/15/17 19:27 K Pad [Heat Therapy] [OM.PC] Routine 04/15/17 19:30 Sodium Chloride 0.9% [Normal Saline] 1,000 ml IV ASDIRECTED 04/15/17 20:00 Lidocaine 5% [Lidoderm 5%] 700 mg TOP Q24H 04/15/17 21:44 Albuterol [Proventil HFA] 0 gm INH Q4H PRN 04/15/17 21:45 RT Post Treatment Assessment [RC] Click to Edit RT Pre-Treatment Assessment [RC] Click to Edit 04/16/17 08:00 Remove Patch 0 ea TRDERM DAILY@0800 04/16/17 09:00 Gabapentin [Neurontin] 300 mg PO TID 04/16/17 10:53 Acetaminophen/HYDROcodone [[place] 325-5 MG] 1 tab PO Q4H PRN 04/16/17 21:00 Insulin Detemir [Levemir] 40 unit SUBCUT BID - Plan Plan:: Fall It is unclear if the patient had a syncopal episode after the fall. She denies any symptoms prior to the fall. She was going up on the stairs and fell backwards hitting the head. CT of the head shows no intracranial bleed. He described subtle, new microvascular ischemic infarct, right parietal lobe new compared to 02/13/17 The patient appears to have a history of prior stroke. The patient currently has normal neurologic deficit. I doubt that the patient had an acute stroke that caused the falling. Well continue on Plavix, statin, aspirin History of seizure disorder No apparent seizure with this episode. Continue Keppra Hypotension noted in the emergency room. The patient has a history of hypertension. Was on lisinopril and Norvasc, hctz. I will hold these medications. Acute renal failure The patients admission creatinine is 2.2 From [employer] system the patients last creatinine last October was around 1. improved since admission This might relate to uncontrolled diabetes, dehydration, possibly due to hypotension, VAL inhibitor, NSAIDS. Treat with hydration. Hold blood pressure medications. Follow blood sugars, electrolytes. Hold nonsteroidals that she has been taking for back pain Uncontrolled diabetes blood sugars are up to 4-500s Given the patients creatinine elevation she is not a good candidate for metformin we'll add a dose of NPH now Increase Levemir and continue mealtime Humalog Monitor blood sugars and adjust as needed Hyponatremia This is pseudohyponatremia related to high blood sugars Control diabetes Hydrate with IV fluids Abnormal urine analysis I think this is a contaminated sample Hold antibiotics Chronic back pain with exacerbation after falling CT chest abd pelvis showed no fx Try to avoid nonsteroidals due to renal failure Try to avoid narcotics due to seizure disorder use Tylenol, Lidoderm, flexeril, nonpharmaceutical, methods. add lorcet DVT prophylaxis will be with subcutaneous heparin
[2017-04-16] MEDS ORDERED: Cyclobenzaprine 10 MG Tab PO PRN (11:01)
[2017-04-16] MEDS: Acetaminophen/HYDROcodone 325-5 MG Tab PO PRN ×3 (11:27→21:15)
[2017-04-16] MEDS: Zolpidem 5 MG Tab PO PRN (21:14)
[2017-04-16] MEDS: Lidocaine 5% 700 MG Patch TOP SCH (21:15)
[2017-04-16] MEDS: Rosuvastatin 10 MG Tab PO SCH (21:15)
[2017-04-17] MEDS: Acetaminophen/HYDROcodone 325-5 MG Tab PO PRN ×3 (01:44→10:01)
[2017-04-17] MEDS: Heparin Sodium 5,000 Units/ML Vial SUBCUT SCH (05:43)
[2017-04-17] MEDS: Sodium Chloride 0.9% 1,000 ML IV SCH (07:21)
[2017-04-17 08:19] VITALS: BP 139/82
[2017-04-17] MEDS: Insulin Aspart 100 Units/ML 3 ML Pen SUBCUT SCH ×2 (08:52→09:07)
[2017-04-17] MEDS: Insulin Detemir 100 Units/ML 3 ML Pen SUBCUT SCH (08:58)
[2017-04-17] MEDS: Aspirin 81 MG Tab.EC PO SCH (09:00)
[2017-04-17] MEDS: Gabapentin 300 MG Cap PO SCH (09:01)
[2017-04-17] MEDS: Clopidogrel 75 MG Tab PO SCH (09:01)
[2017-04-17] MEDS: levETIRAcetam 500 MG Tab PO SCH (09:01)
[2017-04-17 10:13] LABS: CHLORIDE,CL 106 mmol/L (101-111); SODIUM,NA 133 mmol/L (135-145)
--- NOTE | 2017-04-17 11:45 | PCM.DCSUM1 ---
Discharge Summary - Hospital Course Free Text/Narrative:: The patient presented after a fall. Fall It is unclear if the patient had a syncopal episode after the fall. She denies any symptoms prior to the fall. She was going up on the stairs and fell backwards hitting the head. CT of the head showed no intracranial bleed. He described subtle, new microvascular ischemic infarct, right parietal lobe new compared to 02/13/17 The patient has a history of prior stroke. The patient currently has normal neurologic deficit. I doubt that the patient had an acute stroke that caused the falling. Well continue on Plavix, statin, aspirin History of seizure disorder No apparent seizure with this episode. Continue Keppra Hypotension noted in the emergency room. The patient has a history of hypertension. Was on lisinopril and Norvasc, hctz. I will hold these medications. Hypotension has resolved Acute renal failure The patients admission creatinine is 2.2 From [facility] system the patients last creatinine last October was around 1. Resolved since admission with IV hydration This might relate to uncontrolled diabetes, dehydration, possibly due to hypotension, VAL inhibitor, NSAIDS. Treated with hydration. Hold blood pressure medications. d/w pt to minimize nonsteroidals that she has been taking for back pain She will follow-up with her primary care physician in a few days to recheck electrolyte panel, blood pressure, renal function Uncontrolled diabetes blood sugars were up to 4-500s During the acute renal failure we were holding metformin Noted to acute renal failure resolved the patient will go back to her home regimen. According to the patient blood sugars are in the 80-250 range at home She will follow-up with her primary care physician in a few days with a blood sugar diary to further adjust insulin regimen Hyponatremia This is pseudohyponatremia related to high blood sugars Control diabetes Hydrated with IV fluids Abnormal urine analysis I think this is a contaminated sample Hold antibiotics Chronic back pain with exacerbation after falling CT chest abd pelvis showed no fx Try to minimize nonsteroidals due to renal failure Try to avoid narcotics due to seizure disorder use Tylenol, flexeril, nonpharmaceutical methods. - Discharge Data Discharge Date: 04/17/17 Discharge Disposition: Home, Self-Care 01 Condition: Good - Discharge Diagnosis/Problem(s) (1) Hypotension SNOMED Code(s): 49668205 ICD Code: I95.9 - HYPOTENSION, UNSPECIFIED Status: Acute Current Visit: Yes (2) Acute renal failure SNOMED Code(s): 82221045 ICD Code: N17.9 - ACUTE KIDNEY FAILURE, UNSPECIFIED Status: Acute Current Visit: Yes (3) Diabetes mellitus type 2, uncontrolled SNOMED Code(s): 60294098 ICD Code: E11.65 - TYPE 2 DIABETES MELLITUS WITH HYPERGLYCEMIA Status: Acute Current Visit: Yes Qualifiers: Diabetes mellitus complication status: with hyperglycemia Diabetes mellitus senior living insulin use: with terminal carman use Qualified Code(s): E11.65 - Type 2 diabetes mellitus with hyperglycemia; Z79.4 - longterm (current) use of insulin; Z79.4 - rn long term care (current) use of insulin; Z79.4 - rn long term care ( current) use of insulin; Z79.4 - longterm (current) use of insulin (4) Fall at home SNOMED Code(s): 13355955 ICD Code: W19.XXXA - UNSPECIFIED FALL, INITIAL ENCOUNTER; Y92.009 - UNSP PLACE IN UNSP NON-INSTITUT (PRIVATE) RESIDENCE PLACE Status: Acute Current Visit: Yes Qualifiers: Encounter type: initial encounter Qualified Code(s): W19.XXXA - Unspecified fall, initial encounter; Y92.009 - Unspecified place in unspecified non-institutional (private) residence as the place of occurrence of the external cause; Y92.009 - Unspecified place in unspecified non-institutional ( private) residence as the place of occurrence of the external cause - Patient Instructions Diet: Heart Healthy Diet Activity: As Tolerated - Discharge Plan Home Medications: Home Meds Albuterol [Proair HFA] 2 puff INH ASDIRECTED PRN 08/21/13 [History] Fluticasone Propionate [Flovent HFA 110 MCG] 2 puff INH ASDIRECTED PRN 08/21/13 [History] sitaGLIPtin Phos/Metformin HCl [Janumet 50-1,000 MG] 1,000 mg PO DAILY 08/21/13 [History] Insulin Aspart [Novolog Flexpen] 30 units SQ TID PRN 03/17/15 [History] Insulin Glarg,Human.Rec.Analog [Lantus] 30 units SQ BID 03/17/15 [History] Gabapentin 600 mg PO TID 09/07/15 [History] Aspirin [Ecotrin] 81 mg PO DAILY 08/24/17 [History] Clopidogrel Bisulfate [Clopidogrel] 1 tab PO DAILY 02/13/17 [History] Rosuvastatin Calcium 1 tab PO BEDTIME 02/13/17 [History] levETIRAcetam [Keppra] 1 tab PO BID 02/13/17 [History] Acetaminophen [Tylenol] 650 mg PO Q4H PRN tablet 04/17/17 [Rx] Cyclobenzaprine [Flexeril] 10 mg PO TID PRN tablet 04/17/17 [Rx] Insulin Aspart [NovoLOG] 0 unit SUBCUT TIDAC pen 04/17/17 [Rx] Referrals: Cali Jean Baptiste, EMAIL ENGINEER [Primary Care Provider] - (in 3-4 days) - Discharge Summary/Plan Comment DC Time >30 min.: No - General Info Date of Service: 04/17/17 Admission Dx/Problem (Free Text: Admission Diagnosis/Problem Admission Diagnosis/Problem Fall Subjective Update: blood sugars have been better but still significantly elevated. Complaining of some moderate back pain, worse with movements, since the falling. Somewhat better with heat pad and Tylenol but not Completely relieved. No nausea or vomiting. Functional Status: Reports: Tolerating Diet - Review of Systems General: Denies: Fever Pulmonary: Denies: Shortness of Breath Cardiovascular: Denies: Chest Pain Neurological: Denies: Confusion - Patient Data Vitals - Most Recent: Last Vital Signs Temp 36.8 C 04/17/17 08:17 Pulse 85 04/17/17 08:17 Resp 20 04/17/17 08:17 BP 139/82 04/17/17 08:17 Pulse Ox 97 04/17/17 08:17 Weight - Most Recent: 109.951 kg I&O - Last 24 hours: Intake & Output 04/16/17 04/17/17 04/17/17 22:59 06:59 14:59 Intake Total 440 1023 1000 Balance 440 1023 1000 Lab Results - Last 24 hrs: Laboratory Results - last 24 hr 04/16/17 04/16/17 04/17/17 Range/Units 16:45 21:17 07:36 WBC (5.0-10.0) 10^3/uL RBC (4.2-5.4) 10^6/uL Hgb (12.0-16.0) g/dL Hct (37.0-47.0) % MCV (80-100) fL MCH (27.0-34.0) pg MCHC (33.0-35.0) g/dL Plt Count (150-450) 10^3/uL Neut % (Auto) (42.2-75.2) % Lymph % (Auto) (20.5-50.1) % [place] % (Auto) (2-8) % Eos % (Auto) (1.0-3.0) % Baso % (Auto) (0.0-1.0) % Sodium (135-145) mmol/L Potassium (3.6-5.0) mmol/L Chloride (101-111) mmol/L Carbon Dioxide (21.0-31.0) mmol/L Anion Gap BUN (7-18) mg/dL Creatinine (0.6-1.3) mg/dL Est Cr Clr Drug Dosing mL/min Estimated GFR (MDRD) Glucose (74-105) mg/dL POC Glucose 242 H 266 H 195 H (70-105) mg/dl Calcium (8.4-10.2) mg/dl 04/17/17 04/17/17 Range/Units 09:45 09:45 WBC 9.2 (5.0-10.0) 10^3/uL RBC 3.87 L (4.2-5.4) 10^6/uL Hgb 11.1 L (12.0-16.0) g/dL Hct 32.7 L (37.0-47.0) % MCV 84.5 (80-100) fL MCH 28.7 (27.0-34.0) pg MCHC 33.9 (33.0-35.0) g/dL Plt Count 240 (150-450) 10^3/uL Neut % (Auto) 66.2 (42.2-75.2) % Lymph % (Auto) 20.3 L (20.5-50.1) % [place] % (Auto) 5.1 (2-8) % Eos % (Auto) 8.0 H (1.0-3.0) % Baso % (Auto) 0.4 (0.0-1.0) % Sodium 133 L (135-145) mmol/L Potassium 4.5 (3.6-5.0) mmol/L Chloride 106 (101-111) mmol/L Carbon Dioxide 21.0 (21.0-31.0) mmol/L Anion Gap 10.5 BUN 16 (7-18) mg/dL Creatinine 0.8 (0.6-1.3) mg/dL Est Cr Clr Drug Dosing 90.53 mL/min Estimated GFR (MDRD) > 60 Glucose 308 H (74-105) mg/dL POC Glucose (70-105) mg/dl Calcium 8.3 L (8.4-10.2) mg/dl Med Orders - Current: Current Medications Acetaminophen (Tylenol) 650 mg PO Q4H PRN PRN Reason: Pain (Mild 1-3)/fever Last Admin: 04/16/17 20:01 Dose: 650 mg Hydrocodone Bitart/Acetaminophen ([place] 325-5 Mg) 1 tab PO Q4H PRN PRN Reason: severe pain Last Admin: 04/17/17 10:01 Dose: 1 tab Albuterol (Proventil Hfa) 0 gm INH Q4H PRN PRN Reason: Shortness of Breath Aspirin (Halfprin) 81 mg PO DAILY [facility] Last Admin: 04/17/17 09:00 Dose: 81 mg Clopidogrel Bisulfate (Plavix) 75 mg PO DAILY [facility] Last Admin: 04/17/17 09:01 Dose: 75 mg Cyclobenzaprine HCl (Flexeril) 10 mg PO TID PRN PRN Reason: pain - moderate Gabapentin (Neurontin) 300 mg PO TID [facility] Last Admin: 04/17/17 09:01 Dose: 300 mg Heparin Sodium (Porcine) (Heparin Sodium) 5,000 units SUBCUT Q8HR [facility] Last Admin: 04/17/17 05:43 Dose: 5,000 units Sodium Chloride (Normal Saline) 1,000 mls @ 125 mls/hr IV ASDIRECTED [facility] Last Admin: 04/17/17 07:21 Dose: 125 mls/hr Insulin Aspart (Novolog) 0 unit SUBCUT TIDAC [facility] PRN Reason: Protocol Last Admin: 04/17/17 08:52 Dose: 2 units Insulin Aspart (Novolog) 10 unit SUBCUT TID [facility] Last Admin: 04/17/17 09:07 Dose: 10 units Insulin Detemir (Levemir) 40 unit SUBCUT BID [facility] Last Admin: 04/17/17 08:58 Dose: 40 units Levetiracetam (Keppra) 500 mg PO BID [facility] Last Admin: 04/17/17 09:01 Dose: 500 mg Lidocaine (Lidoderm 5%) 700 mg TOP Q24H [facility] Last Admin: 04/16/17 21:15 Dose: Not Given Miscellaneous Information (Remove Patch) 0 ea TRDERM DAILY@0800 [facility] Last Admin: 04/17/17 10:06 Dose: Not Given Ondansetron HCl (Zofran) 4 mg IVPUSH Q4H PRN PRN Reason: Nausea/Vomiting Rosuvastatin Calcium (Crestor) 20 mg PO BEDTIME [facility] Last Admin: 04/16/17 21:15 Dose: 20 mg Sodium Chloride (Saline Flush) 10 ml FLUSH ASDIRECTED PRN PRN Reason: Keep Vein Open Last Admin: 04/15/17 16:22 Dose: 10 ml Zolpidem Tartrate (Ambien) 5 mg PO BEDTIME PRN PRN Reason: Sleep Last Admin: 04/16/17 21:14 Dose: 5 mg Discontinued Medications Albuterol (Proventil Hfa) 0 gm INH ASDIRECTED PRN PRN Reason: Dyspnea Gabapentin (Neurontin) 600 mg PO TID [facility] Last Admin: 04/15/17 23:19 Dose: Not Given Gabapentin (Neurontin) 100 mg PO ONETIME ONE Stop: 04/15/17 22:24 Last Admin: 04/15/17 22:43 Dose: 100 mg Sodium Chloride (Normal Saline) 1,000 mls @ 999 mls/hr IV .BOLUS ONE Stop: 04/15/17 17:25 Last Admin: 04/15/17 16:10 Dose: 999 mls/hr Sodium Chloride (Normal Saline) 1,000 mls @ 999 mls/hr IV .BOLUS ONE Stop: 04/15/17 18:46 Last Admin: 04/15/17 18:11 Dose: 999 mls/hr Insulin Aspart (Novolog) 10 unit SUBCUT ONETIME ONE Stop: 04/15/17 21:19 Last Admin: 04/15/17 22:38 Dose: 10 units Insulin Aspart (Novolog) 20 unit SUBCUT ONETIME ONE Stop: 04/16/17 07:43 Last Admin: 04/16/17 08:10 Dose: 20 units Insulin Detemir (Levemir) 30 unit SUBCUT BID [facility] Last Admin: 04/16/17 09:10 Dose: 30 units Insulin Detemir (Levemir) 40 unit SUBCUT BID [facility] Insulin Human NPH (Novolin N) 10 unit SUBCUT ONETIME ONE Stop: 04/16/17 10:52 Last Admin: 04/16/17 11:28 Dose: 10 units Iopamidol (Isovue-300 (61%)) 100 ml IVPUSH ONETIME ONE Stop: 04/15/17 16:27 Last Admin: 04/15/17 16:30 Dose: 100 ml - Exam General: Reports: Alert, Oriented Lungs: Reports: Clear to Auscultation, Normal Respiratory Effort GI/Abdominal Exam: Normal Bowel Sounds, Soft, Non-Tender Back Exam: Reports: Normal Inspection Extremities: No Pedal Edema Neurological: Reports: No New Focal Deficit Psy/Mental Status: Reports: Alert, Normal Affect, Normal Mood *Q Meaningful Use (DIS) - VTE *Q VTE Criteria *Q: - Stroke *Q Stroke Criteria *Q: - AMI *Q AMI Criteria *Q:
--- NOTE | 2017-04-21 10:42 | EKG ---
04/15/2017- PAGE, DAIJA MELGAR - EKG per my reading shows sinus rhythm at a rate of 100. [facility] /[id number]
== END 2017-04-17 12:25 | disposition home or self-care (01) ==
LOC: DL.ED 16:04 → UNDOADMOB 18:33 → DL.MS 18:33
PROVIDERS: ADMIT Internal Medicine; ATTEND Internal Medicine
DX: I95.9 Hypotension, unspecified (principal); N17.9 Acute kidney failure, unspecified; E11.65 Type 2 diabetes mellitus with hyperglycemia; J45.909 Unspecified asthma, uncomplicated; E66.9 Obesity, unspecified; E11.42 Type 2 diabetes mellitus with diabetic polyneuropathy; E87.1 Hypo-osmolality and hyponatremia; G89.29 Other chronic pain; M54.9 Dorsalgia, unspecified; Z79.4 Long term (current) use of insulin; W19.XXXA Unspecified fall, initial encounter; Y92.009 Unspecified place in unspecified non-institutional (private) residence as the place of occurrence of the external cause; Z79.82 Long term (current) use of aspirin; Z79.899 Other long term (current) drug therapy; Z68.30 Body mass index [BMI] 30.0-30.9, adult; F17.210 Nicotine dependence, cigarettes, uncomplicated
CPT/HCPCS: 36415; 70450; 71260; 72125; 74177; 80048; 80053; 80177; 80305; 81001; 81025; 82009; 82150; 82962; 83690; 84484; 85025; 85610; 85730; 93005; 93010; 96360; 96361; 96372; 99291; 99292; A9270; G0378; G0480; J1644; J1815; J7030; J7050; Q9967

== ENCOUNTER 2017-04-17 16:22 | Emergency (ER) | payer MEDICARE, MEDICAID ==
[2017-04-17] MEDS ORDERED: Lidocaine 5% Oint 35.44 GM Tube TOP ONE (16:42)
[2017-04-17] MEDS ORDERED: Ketorolac 30 MG/ML SDV IM ONE (16:43)
[2017-04-17] MEDS ORDERED: Acetaminophen/HYDROcodone 325-10 MG Tab PO ONE (16:45)
--- NOTE | 2017-04-17 16:52 | EDM.PDOC ---
Scribed by Bertha Spivey 04/17/17 [id number] for Shankar Maldonado MD ED HPI GENERAL MEDICAL PROBLEM - General Chief Complaint: Back Pain or Injury Stated Complaint: BACK PAIN [id number] Time Seen by Provider: 04/17/17 16:41 Source of Information: Reports: Patient, RN, RN Notes Reviewed History Limitations: Reports: No Limitations - History of Present Illness INITIAL COMMENTS - FREE TEXT/NARRATIVE: Patient presents to the ER with complaint of low back pain sustained from a fall on 04/15/17. Patient was admitted and just discharged today. She was not happy with the discharge treatments of heat, ice, Tylenol and Ibuprofen as needed and requests stronger pain medication. Patient had CT imaging on the day of her fall with no acute fractures or findings as per radiologist report. Denies any other injuries. Severity: Severe - Related Data Allergies Allergy/AdvReac Type Severity Reaction Status Date / Time No Known Allergies Allergy Verified 04/15/17 16:23 Home Meds: Home Meds Albuterol [Proair HFA] 2 puff INH ASDIRECTED PRN 08/21/13 [History] Fluticasone Propionate [Flovent HFA 110 MCG] 2 puff INH ASDIRECTED PRN 08/21/13 [History] sitaGLIPtin Phos/Metformin HCl [Janumet 50-1,000 MG] 1,000 mg PO DAILY 08/21/13 [History] Insulin Aspart [Novolog Flexpen] 30 units SQ TID PRN 03/17/15 [History] Insulin Glarg,Human.Rec.Analog [Lantus] 30 units SQ BID 03/17/15 [History] Gabapentin 600 mg PO TID 09/07/15 [History] Aspirin [Ecotrin] 81 mg PO DAILY 10/01/16 [History] Clopidogrel Bisulfate [Clopidogrel] 1 tab PO DAILY 02/13/17 [History] Rosuvastatin Calcium 1 tab PO BEDTIME 02/13/17 [History] levETIRAcetam [Keppra] 1 tab PO BID 02/13/17 [History] Acetaminophen [Tylenol] 650 mg PO Q4H PRN tablet 04/17/17 [Rx] Cyclobenzaprine [Flexeril] 10 mg PO TID PRN tablet 04/17/17 [Rx] Gabapentin [Neurontin] 300 mg PO TID #21 capsule 04/17/17 [Rx] Insulin Aspart [NovoLOG] 0 unit SUBCUT TIDAC pen 04/17/17 [Rx] Zolpidem [Ambien] 5 mg PO BEDTIME PRN #7 tablet 04/17/17 [Rx] Past Medical History HEENT History: Reports: None Cardiovascular History: Reports: Hypertension, Other (See Below) Other Cardiovascular History: hx rhuematic fever Respiratory History: Reports: Asthma Gastrointestinal History: Reports: None Genitourinary History: Reports: None LAYOUT FORMER History: Reports: Musculoskeletal History: Reports: Back Pain, Chronic, Osteoarthritis Neurological History: Reports: Neuropathy, Diabetic, Neuropathy, Peripheral, Seizure, TIA Other Neuro History: mini strokes Psychiatric History: Reports: None Endocrine/Metabolic History: Reports: Diabetes, Type II, IDDM, Obesity/BMI 30+ Hematologic History: Reports: None Immunologic History: Reports: None Oncologic (Cancer) History: Reports: None Dermatologic History: Reports: None - Infectious Disease History Infectious Disease History: Reports: Chicken Pox - Past Surgical History Head Surgeries/Procedures: Reports: None Female Surgical History: Reports: Section Social & Family History - Family History Family Medical History: Noncontributory Respiratory: Reports: Asthma Other Respiratory Family Hisory: Brother Endocrine/Metabolic: Reports: Diabetes, type II Other Endocrine/Metabolic Family History: Brother - Tobacco Use Smoking Status *Q: Current Every Day Smoker Years of Tobacco use: 20 Packs/Tins Daily: 0.1 Used Tobacco, but Quit: No Month Tobacco Last Used: 02 Second Hand Smoke Exposure: Yes - Caffeine Use Caffeine Use: Reports: Soda - Alcohol Use Days Per Week of Alcohol Use: 0 - Recreational Drug Use Recreational Drug Use: No - Sexual History Sexual History: Reports: Sexually Active, Single Partner - Living Situation & Occupation Living situation: Reports: with Significant Other, with Family Occupation: Unemployed ED ROS GENERAL - Review of Systems Review Of Systems: ROS reveals no pertinent complaints other than HPI. ED EXAM,LOWER BACK PAIN/INJURY - Physical Exam Exam: See Below Exam Limited By: No Limitations General Appearance: Alert, No Apparent Distress, Obese Head: Atraumatic, Normocephalic Neck: Normal Inspection, Supple, Non-Tender, Full Range of Motion Respiratory/Chest: No Respiratory Distress, Lungs Clear, No Accessory Muscle Use , Decreased Breath Sounds Cardiovascular: Regular Rate, Rhythm Back Exam: Decreased Range of Motion, Paraspinal Tenderness (lumbar region). No : CVA Tenderness (L), CVA Tenderness (R) Extremities: Normal Inspection, Normal Range of Motion, Non-Tender, No Pedal Edema, Normal Capillary Refill Neurological: Alert, No Motor/Sensory Deficits Psychiatric: Depressed Mood, Flat Affect Skin Exam: Warm, Dry, Intact, Normal Color, No Rash Course - Orders/Labs/Meds Meds: Medications Discontinued Medications Generic Name Dose Route Start Last Admin Trade Name Noel PRN Reason Stop Dose Admin Hydrocodone Bitart/Acetaminophen 1 tab 04/17/17 16:45 [place] 325-10 Mg PO 04/17/17 16:46 ONETIME ONE Ketorolac Tromethamine 30 mg 04/17/17 16:43 Toradol IM 04/17/17 16:44 ONETIME ONE Lidocaine HCl 15 gm 04/17/17 16:42 Lidocaine 5% TOP 04/17/17 16:43 ONETIME ONE - Re-Assessments/Exams Free Text/Narrative Re-Assessment/Exam: 04/17/17 16:49 Reviewed the ER course and imaging from 04/15/17 and the patient's hospital course. I prescribed the patient Lidocaine. ointment 5%. I have declined to prescribe any narcotic pain medication as she has no fractures or injuries significant enough to warrant opiates. I have advised her to follow up in clinic this week with her primary doctor to discuss pain management. Departure - Departure Time of Disposition: 16:43 Disposition: Home, Self-Care 01 Condition: Fair Clinical Impression: Acute low back pain Qualifiers: Back pain laterality: unspecified Sciatica presence: without sciatica Qualified Code(s): M54.5 - Low back pain - Discharge Information Instructions: Back Pain, Adult, [id number] Forms: ED Department Discharge Additional Instructions: RX: Lidocaine ointment 5%. Follow up in clinic with your doctor on Wednesday or Wednesday, April 19 or , for recheck of back pain. Continue other treatments as per Dr. Fischer's discharge instructions. I have read and agree with the documentation that has been completed regarding this visit. By signing this record, I attest that the documentation was completed in my physical presence and is an accurate record of the encounter.
[2017-04-17 16:57] VITALS: BP 160/72
== END 2017-04-17 17:55 | disposition home or self-care (01) ==
LOC: DL.ED 16:22
DX: M54.5 Low back pain (principal); I10 Essential (primary) hypertension; J45.909 Unspecified asthma, uncomplicated; E11.42 Type 2 diabetes mellitus with diabetic polyneuropathy; F17.210 Nicotine dependence, cigarettes, uncomplicated; Z79.4 Long term (current) use of insulin; Z79.02 Long term (current) use of antithrombotics/antiplatelets; Z79.82 Long term (current) use of aspirin; Z79.899 Other long term (current) drug therapy
CPT/HCPCS: 96372; 99283; A9270; J1885

== ENCOUNTER 2017-05-31 19:44 | Emergency (ER) | payer MEDICARE, MEDICAID ==
[2017-06-01] MEDS ORDERED: Albuterol 0.083% 2.5 MG/3 ML Neb Soln NEB ONE (00:39)
[2017-06-01] MEDS ORDERED: Azithromycin 250 MG Tab PO ONE (00:51)
--- NOTE | 2017-06-01 00:52 | EDM.PDOC ---
ED HPI GENERAL MEDICAL PROBLEM - General Chief Complaint: Respiratory Problem Stated Complaint: [id number] RESP TROUBLE Time Seen by Provider: 06/01/17 00:30 Source of Information: Reports: Patient, Family History Limitations: Reports: No Limitations - History of Present Illness INITIAL COMMENTS - FREE TEXT/NARRATIVE: c/o cough for 4-5 days. Last neb 2 days ago. States does have setup and solution , just has not used. Unsure if fever, has been sweaty. - Related Data Allergies Allergy/AdvReac Type Severity Reaction Status Date / Time No Known Allergies Allergy Verified 05/31/17 19:58 Home Meds: Home Meds Albuterol [Proair HFA] 2 puff INH ASDIRECTED PRN 08/21/13 [History] Fluticasone Propionate [Flovent HFA 110 MCG] 2 puff INH ASDIRECTED PRN 08/21/13 [History] sitaGLIPtin Phos/Metformin HCl [Janumet 50-1,000 MG] 1,000 mg PO DAILY 08/21/13 [History] Insulin Aspart [Novolog Flexpen] 30 units SQ TID PRN 03/17/15 [History] Insulin Glarg,Human.Rec.Analog [Lantus] 30 units SQ BID 03/17/15 [History] Gabapentin 600 mg PO TID 09/07/15 [History] Aspirin [Ecotrin] 81 mg PO DAILY 10/01/16 [History] Clopidogrel Bisulfate [Clopidogrel] 1 tab PO DAILY 02/13/17 [History] Rosuvastatin Calcium 1 tab PO BEDTIME 02/13/17 [History] levETIRAcetam [Keppra] 1 tab PO BID 02/13/17 [History] Acetaminophen [Tylenol] 650 mg PO Q4H PRN tablet 04/17/17 [Rx] Cyclobenzaprine [Flexeril] 10 mg PO TID PRN tablet 04/17/17 [Rx] Gabapentin [Neurontin] 300 mg PO TID #21 capsule 04/17/17 [Rx] Insulin Aspart [NovoLOG] 0 unit SUBCUT TIDAC pen 04/17/17 [Rx] Zolpidem [Ambien] 5 mg PO BEDTIME PRN #7 tablet 04/17/17 [Rx] Past Medical History HEENT History: Reports: None Cardiovascular History: Reports: Hypertension, Other (See Below) Other Cardiovascular History: hx rhuematic fever Respiratory History: Reports: Asthma Gastrointestinal History: Reports: None Genitourinary History: Reports: None 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: Musculoskeletal History: Reports: Back Pain, Chronic, Osteoarthritis Neurological History: Reports: Neuropathy, Diabetic, Neuropathy, Peripheral, Seizure, TIA Other Neuro History: mini strokes Psychiatric History: Reports: None Endocrine/Metabolic History: Reports: Diabetes, Type II, IDDM, Obesity/BMI 30+ Hematologic History: Reports: None Immunologic History: Reports: None Oncologic (Cancer) History: Reports: None Dermatologic History: Reports: None - Infectious Disease History Infectious Disease History: Reports: Chicken Pox - Past Surgical History Head Surgeries/Procedures: Reports: None Female Surgical History: Reports: Section Social & Family History - Family History Family Medical History: Noncontributory Respiratory: Reports: Asthma Other Respiratory Family Hisory: Brother Endocrine/Metabolic: Reports: Diabetes, type II Other Endocrine/Metabolic Family History: Brother - Tobacco Use Smoking Status *Q: Current Every Day Smoker Years of Tobacco use: 20 Packs/Tins Daily: 0.3 Used Tobacco, but Quit: No Month/Year Tobacco Last Used: 02 Second Hand Smoke Exposure: Yes - Caffeine Use Caffeine Use: Reports: Soda - Alcohol Use Days Per Week of Alcohol Use: 0 - Recreational Drug Use Recreational Drug Use: No - Sexual History Sexual History: Reports: Sexually Active, Single Partner - Living Situation & Occupation Living situation: Reports: with Significant Other, with Family Occupation: Unemployed ED ROS GENERAL - Review of Systems Review Of Systems: See Below Constitutional: Reports: Night Sweats HEENT: Reports: No Symptoms Respiratory: Reports: Wheezing, Cough. Denies: Sputum Cardiovascular: Reports: No Symptoms GI/Abdominal: Reports: No Symptoms Skin: Reports: No Symptoms Neurological: Reports: No Symptoms ED EXAM, GENERAL - Physical Exam Exam: See Below Exam Limited By: No Limitations General Appearance: Obese, Other (drowsy arouses easily, unkempt ) Ears: Normal External Exam, Normal TMs Nose: Normal Inspection Throat/Mouth: Normal Inspection Head: Atraumatic, Normocephalic Neck: Normal Inspection Respiratory/Chest: No Respiratory Distress, Rhonchi (bronchial clears with cough ), Wheezing Cardiovascular: Normal Peripheral Pulses, Regular Rate, Rhythm, Tachycardia GI/Abdominal: Normal Bowel Sounds Neurological: Oriented, Normal Cognition Psychiatric: Flat Affect Skin Exam: Warm, Dry, Intact Course - Vital Signs Last Recorded V/S: Last Vital Signs Temp 98.2 F 06/01/17 01:37 Pulse 102 H 06/01/17 01:37 Resp 18 06/01/17 01:37 BP 97/78 06/01/17 01:37 Pulse Ox 93 L 06/01/17 01:37 - Orders/Labs/Meds Orders: Active Orders 24 hr Category Date Time Status RT Aerosol Therapy [RC] ASDIRECTED Care 06/01/17 00:39 Active CXR [Chest 1V Frontal] [CR] Urgent Exams 05/31/17 23:06 Taken Meds: Medications Discontinued Medications Generic Name Dose Route Start Last Admin Trade Name Freq PRN Reason Stop Dose Admin Albuterol 2.5 mg 06/01/17 00:39 06/01/17 00:47 Proventil Neb Soln NEB 06/01/17 00:40 2.5 mg ONETIME ONE Administration Azithromycin 500 mg 06/01/17 00:51 06/01/17 01:36 Zithromax PO 06/01/17 00:52 500 mg ONETIME ONE Administration - Radiology Interpretation Free Text/Narrative:: CXR: Bilateral bronchitis and basilar atelectasis Departure - Departure Time of Disposition: 01:43 Disposition: Home, Self-Care 01 Condition: Good Clinical Impression: Bronchitis Exacerbation of asthma Qualifiers: Asthma severity: moderate Asthma persistence: persistent Qualified Code(s): J45.41 - Moderate persistent asthma with (acute) exacerbation - Discharge Information Instructions: Upper Respiratory Infection, Adult, [id number] Referrals: Cali Jean Baptiste NP [Ordering Only Provider] - Forms: ED Department Discharge Additional Instructions: Albuterol Nebulizer every 4 hours clinic follow up end of week if not improving increase fluids tylenol 650mg every 4 hours as needed for fever/discomfort Azithromycin 250mg daily for 4 days - My Orders Last 24 Hours: My Active Orders 05/31/17 23:06 CXR [Chest 1V Frontal] [CR] Urgent 06/01/17 00:39 RT Aerosol Therapy [RC] ASDIRECTED - Assessment/Plan Last 24 Hours: My Active Orders 05/31/17 23:06 CXR [Chest 1V Frontal] [CR] Urgent 06/01/17 00:39 RT Aerosol Therapy [RC] ASDIRECTED
[2017-06-01 01:38] VITALS: BP 97/78
== END 2017-06-01 01:45 | disposition home or self-care (01) ==
LOC: DL.ED 19:44
DX: J45.41 Moderate persistent asthma with (acute) exacerbation (principal); J40 Bronchitis, not specified as acute or chronic; I10 Essential (primary) hypertension; E11.42 Type 2 diabetes mellitus with diabetic polyneuropathy; F17.210 Nicotine dependence, cigarettes, uncomplicated; Z79.82 Long term (current) use of aspirin; Z79.4 Long term (current) use of insulin; Z79.899 Other long term (current) drug therapy
CPT/HCPCS: 71045; 99283; A9270; J7620

== ENCOUNTER 2017-06-17 21:28 | Inpatient (IN) | payer MEDICARE, MEDICAID ==
[2017-06-17] MEDS ORDERED: Sodium Chloride 0.9% 1,000 ML IV ONE ×2 (21:32→23:37)
[2017-06-17] MEDS ORDERED: Insulin Regular, Human 100 Units/ML 3 ML Vial IV ONE (22:00)
[2017-06-17 22:09] LABS: O2 DELIVERY DEVICE ROOM AIR
[2017-06-17 22:32] LABS: CHLORIDE,CL 100 mmol/L (101-111); SODIUM,NA 127 mmol/L (135-145)
[2017-06-17 22:32] LABS: BASE EXCESS ARTERIAL -7 mmol/L ((-2)-(+3)); BICARBONATE,ARTERIAL 18.4 mmol/L (22-26); O2 SATURATION ARTERIAL 93 % (95-100); PCO2 ARTERIAL 37 mmHg (35-45); PO2 ARTERIAL 62 mmHg (70-100)
[2017-06-17] MEDS ORDERED: Acetaminophen 325 MG Tab PO ONE (23:13)
[2017-06-18] MEDS ORDERED: Albuterol 6.7 GM Inhaler INH PRN (01:23)
[2017-06-18] MEDS ORDERED: Acetaminophen 325 MG Tab PO PRN (01:23)
[2017-06-18] MEDS ORDERED: Cyclobenzaprine 10 MG Tab PO PRN (01:23)
[2017-06-18] MEDS ORDERED: 50% Dextrose in Water 50 ML Syringe IVPUSH PRN (01:26)
[2017-06-18] MEDS ORDERED: Insulin Aspart 100 Units/ML 3 ML Pen SUBCUT ONE (02:00)
[2017-06-18] MEDS: Acetaminophen/oxyCODONE 325-5 MG Tab PO PRN ×5 (02:14→21:20)
[2017-06-18] MEDS: Sodium Chloride 0.9% 1,000 ML IV SCH ×3 (02:17→23:34)
--- NOTE | 2017-06-18 02:21 | HP ---
DATE OF SERVICE: 06/18/2017 CHIEF COMPLAINT: Dizziness. HISTORY OF PRESENTING ILLNESS: Mrs. Zelda Ogden is a 46-year-old female with medical history significant for hypertension, hyperlipidemia, type 2 diabetes mellitus, diabetes complicated with neuropathy, morbid obesity, history of seizure disorder during in the past, history of chronic opioid use and opioid dependency, history of anxiety, depression, history of asthma, presented to the ER today with having a fall and feeling dizzy. While in the ER, the patient was noted to have low blood pressure with blood pressure down to 97/55, and also uncontrolled diabetes needing admission to the hospital. She had a blood sugar around 400 while in the emergency room. At this time, the patient claims that she has been feeling sick for the last 1 to 2 days where she complains of increasing weakness and tiredness. She grades the weakness as 6/10 in intensity, which got aggravated on ambulation, relieved with rest. Complains of having dizzy spells earlier and falling down on her knees. She denies any loss of consciousness. She denies any chest pain. No shortness of breath. No abdominal pain. No nausea. No vomiting. No diarrhea in the last few days. No fevers. No chills. No cough. No sputum in the last few days. The patient denied any history of chest pains on exertion. No history of dyspnea on exertion. No history of orthopnea or paroxysmal nocturnal dyspnea. The patient denied any history of hematemesis, hematochezia, or melenic stools. Normal bowel and bladder habits otherwise. REVIEW OF SYSTEMS: A complete review of system including skin, ear, nose, and throat, cardiovascular system, respiratory system, gastrointestinal system, genitourinary system, hematology, oncology, neurology, allergy, immunology were all evaluated and were negative except for the above-said notes. PAST MEDICAL HISTORY: Significant for: 1. Hypertension. 2. Hyperlipidemia. 3. Type 2 diabetes mellitus. 4. Morbid obesity. 5. Chronic opioid use. 6. History of anxiety, depression. 7. History of seizures in the past. 8. Possible TIAs in the past. PAST SURGICAL HISTORY: Significant for: 1. Vaginal uterus dilatation and curettage. 2. Laparotomy with . 3. Laparoscopic tubal ligation. FAMILY HISTORY: Significant for heart attack, diabetes, and kidney disease with hypertension in her mother, and heart attack with COPD and cerebrovascular accident in her father. SOCIAL HISTORY: The patient continues to smoke. She smokes around 5 to 6 cigarettes a day. No alcohol use. No substance abuse. ALLERGIES: No known drug allergies. HOME MEDICATIONS: Include: 1. Janumet 1000 mg daily. 2. Keppra 1 tablet twice a day. 3. Ambien 5 mg at bedtime as needed. 4. Rosuvastatin 1 tablet at bedtime. 5. NovoLog 30 units 3 times a day. 6. Levemir 45 units at bedtime. 7. Neurontin 300 mg 3 times a day. 8. Flovent 2 puffs inhalation as needed. 9. Flexeril 10 mg 3 times a day as needed. 10.Plavix 1 tablet daily. 11.Aspirin 81 mg daily. 12.Albuterol 2 puffs inhalation as needed. 13.Tylenol 650 every 4 hours as needed for pain. PHYSICAL EXAMINATION: Vital Signs: On the day of discharge vitals; temperature of 97.3, pulse of 100, blood pressure of 100/42, respiratory rate of 14, saturating at 100% on room air. General Appearance: The patient is well oriented to time, place, and person. Follows commands spontaneously. Cardiovascular System: S1, S2 heard with normal intensity. No gallops. Respiratory System: Clear to auscultation bilaterally. No wheeze. No crepitations. Abdomen: Soft. Bowel sounds positive. Nontender. No rigidity. Extremities: No edema in bilateral lower extremities. Neurology: No gross focal neurological deficits. LABORATORY DATA: Reviewed: WBC 13.4, hemoglobin 12.2, hematocrit 35.6, platelet count 317. Sodium 127, potassium 4.1, chloride 100, bicarb 21, BUN 39, creatinine 1.4, glucose 375. Lactic acid 1.7, AST 14, ALT 10, alkaline phos is 127. Urinalysis; small leukocyte esterase, negative for nitrates, many bacteria, many epithelial cells. ASSESSMENT: 1. Type 2 diabetes mellitus, uncontrolled with severe hyperglycemia. 2. Hyponatremia. 3. Acute renal failure. 4. Possible urinary tract infection with leukocytosis. 5. Hypotension. 6. Morbid obesity. 7. History of opioid use. 8. History of seizures. PLAN: 1. Type 2 diabetes mellitus, uncontrolled. The patient was noted to have severe hyperglycemia. The patient usually takes insulin regimen at home. We will resume the insulin. We will check her fingersticks with each meals. Have her on supplemental scale insulin as needed for additional coverage of her blood glucose. 2. Acute renal failure. The patient creatinine up to 1.4. Her baseline creatinine is around 0.8-1.1. We will keep her hydrated with IV fluids. Avoid nephrotoxic agents. Dose adjust medications for renal function. 3. Hypertension. The patient is currently hypotensive, hold antihypertensive medications, keep her hydrated with IV fluids. 4. Urinary tract infection. The patient is noted to have muddy urine. We will obtain blood cultures, urine cultures, start her on IV antibiotic, ceftriaxone, and titrate the antibiotics once we have the culture reports available. 5. History of asthma. The patient is currently on inhalation treatment. Continue the same. 6. Hyperlipidemia. Continue rosuvastatin. 7. The patient claims that she fell, but her knee joint survey in normal, mild tenderness elicited. No swelling noted. Ankle joints, no swelling noted. No erythema noted. 8. DVT prophylaxis. We will have her on heparin for DVT prophylaxis. 9. Code status. The patient wants to be full code. 10.Discussed with the patient regarding the plan of care. Discussed with Rut from ER regarding the plan of care. Reviewed the labs and medications. Reviewed the old charts. [facility] /[id number]
[2017-06-18] MEDS: Heparin Sodium 5,000 Units/ML Vial SUBCUT SCH ×3 (05:44→21:49)
--- NOTE | 2017-06-18 07:45 | EDM.PDOC ---
ED HPI GENERAL MEDICAL PROBLEM - General Chief Complaint: Lower Extremity Injury/Pain Stated Complaint: [id number] fell and hurt rt ankle Time Seen by Provider: 06/17/17 21:40 Source of Information: Reports: Patient, Family History Limitations: Reports: No Limitations - History of Present Illness INITIAL COMMENTS - FREE TEXT/NARRATIVE: ED with c/o pain to right ankle after falling. Stated has been feeling weak this week and fell twisting ankle. Blood sugars have been up to 500's. Denied fevers cough, skin sores or urinary complainants. Notes decreased appetite and trying to eat less to keep blood sugars down. Right Ankle Pain Score (Numeric/FACES): 5 - Related Data Allergies Allergy/AdvReac Type Severity Reaction Status Date / Time No Known Allergies Allergy Verified 05/31/17 19:58 Home Meds: Home Meds Albuterol [Proair HFA] 2 puff INH Q4HR PRN 08/21/13 [History] Fluticasone Propionate [Flovent HFA 110 MCG] 2 puff INH BID 08/21/13 [History] sitaGLIPtin Phos/Metformin HCl [Janumet 50-1,000 MG] 1,000 mg PO DAILY 08/21/13 [History] Insulin Aspart [Novolog Flexpen] 30 units SQ TID PRN 03/17/15 [History] Insulin Glarg,Human.Rec.Analog [Lantus] 30 units SQ BID 03/17/15 [History] Gabapentin 600 mg PO TID 09/07/15 [History] Aspirin [Ecotrin] 81 mg PO DAILY 10/01/16 [History] Clopidogrel Bisulfate [Clopidogrel] 1 tab PO DAILY 02/13/17 [History] Rosuvastatin Calcium 1 tab PO BEDTIME 02/13/17 [History] levETIRAcetam [Keppra] 1 tab PO BID 02/13/17 [History] Acetaminophen [Tylenol] 650 mg PO Q4H PRN tablet 04/17/17 [Rx] Cyclobenzaprine [Flexeril] 10 mg PO TID PRN tablet 04/17/17 [Rx] Gabapentin [Neurontin] 300 mg PO TID #21 capsule 04/17/17 [Rx] Insulin Aspart [NovoLOG] 0 unit SUBCUT TIDAC pen 04/17/17 [Rx] Zolpidem [Ambien] 5 mg PO BEDTIME PRN #7 tablet 04/17/17 [Rx] Past Medical History HEENT History: Reports: None Cardiovascular History: Reports: Hypertension, Other (See Below) Other Cardiovascular History: hx rhuematic fever Respiratory History: Reports: Asthma Gastrointestinal History: Reports: None Genitourinary History: Reports: None VEGETABLE WASHER History: Reports: Musculoskeletal History: Reports: Back Pain, Chronic, Osteoarthritis Neurological History: Reports: Neuropathy, Diabetic, Neuropathy, Peripheral, Seizure, TIA Other Neuro History: mini strokes Psychiatric History: Reports: None Endocrine/Metabolic History: Reports: Diabetes, Type II, IDDM, Obesity/BMI 30+ Hematologic History: Reports: None Immunologic History: Reports: None Oncologic (Cancer) History: Reports: None Dermatologic History: Reports: None - Infectious Disease History Infectious Disease History: Reports: Chicken Pox - Past Surgical History Head Surgeries/Procedures: Reports: None Female Surgical History: Reports: Section Social & Family History - Family History Family Medical History: Noncontributory Respiratory: Reports: Asthma Other Respiratory Family Hisory: Brother Endocrine/Metabolic: Reports: Diabetes, type II Other Endocrine/Metabolic Family History: Brother - Tobacco Use Smoking Status *Q: Never Smoker Second Hand Smoke Exposure: Yes - Caffeine Use Caffeine Use: Reports: None - Recreational Drug Use Recreational Drug Use: No - Sexual History Sexual History: Reports: Sexually Active, Single Partner - Living Situation & Occupation Living situation: Reports: with Significant Other, with Family Occupation: Unemployed Review of Systems - Review of Systems Review Of Systems: See Below Constitutional: Reports: Weakness Eyes: Reports: No Symptoms Ears: Reports: No Symptoms Nose: Reports: No Symptoms Mouth/Throat: Reports: No Symptoms Respiratory: Reports: No Symptoms Cardiovascular: Reports: No Symptoms GI/Abdominal: Reports: No Symptoms Genitourinary: Reports: No Symptoms Skin: Denies: Rash, Wound Neurological: Reports: No Symptoms Psychiatric: Reports: No Symptoms ED EXAM, GENERAL - Physical Exam Exam: See Below Exam Limited By: No Limitations General Appearance: Alert, Mild Distress Eye Exam: Bilateral Eye: EOMI, PERRL (5 sluggish) Ears: Normal External Exam Nose: Normal Inspection Throat/Mouth: Normal Inspection Head: Atraumatic, Normocephalic Neck: Normal Inspection Respiratory/Chest: No Respiratory Distress, Lungs Clear, Normal Breath Sounds Cardiovascular: Normal Peripheral Pulses, Regular Rate, Rhythm GI/Abdominal: Normal Bowel Sounds Extremities: Normal Inspection. No: Normal Range of Motion (pain elicited with minimal movement of right ankle, minimal swelling, no deformity) Neurological: Alert, Oriented Psychiatric: Normal Affect, Normal Mood Skin Exam: Warm, Dry, Intact, Normal Color, No Rash, Other (thick callouses to bottom of feet) Course - Vital Signs Last Recorded V/S: Last Vital Signs Temp 98.2 F 06/18/17 03:00 Pulse 96 06/18/17 03:00 Resp 14 06/18/17 03:00 BP 100/40 L 06/18/17 03:00 Pulse Ox 100 06/18/17 03:00 - Orders/Labs/Meds Orders: Active Orders 24 hr Category Date Time Status UA W/MICROSCOPIC [URIN] Stat Lab 06/18/17 00:41 Ordered Medication Orders Acetaminophen (Tylenol) 650 mg PO Q4H PRN PRN Reason: Pain (Mild 1-3)/fever Albuterol (Proventil Hfa) 0 gm INH Q4H PRN PRN Reason: Dyspnea Aspirin (Halfprin) 81 mg PO DAILY [facility] Clopidogrel Bisulfate (Plavix) 75 mg PO DAILY [facility] Cyclobenzaprine HCl (Flexeril) 10 mg PO TID PRN PRN Reason: pain - moderate Dextrose/Water (Dextrose 50% In Water) 50 ml IVPUSH ONETIME PRN PRN Reason: Hypoglycemia Gabapentin (Neurontin) 300 mg PO TID [facility] Heparin Sodium (Porcine) (Heparin Sodium) 5,000 units SUBCUT Q8HR [facility] Last Admin: 06/18/17 05:44 Dose: 5,000 units Sodium Chloride (Normal Saline) 1,000 mls @ 100 mls/hr IV DAILY [facility] Last Admin: 06/18/17 02:17 Dose: 100 mls/hr Ceftriaxone Sodium 1,000 mg/ (Sodium Chloride) 100 mls @ 200 mls/hr IV Q24H [facility] Last Admin: 06/18/17 02:17 Dose: 200 mls/hr Insulin Aspart (Novolog) 30 unit SUBCUT TID [facility] Insulin Aspart (Novolog) 0 unit SUBCUT TID@0800,1200,1700 [facility]; Protocol Insulin Aspart (Novolog) 0 unit SUBCUT BEDTIME [facility]; Protocol Insulin Detemir (Levemir) 30 unit SUBCUT BID [facility] Levetiracetam (Keppra) 500 mg PO BID [facility] Mometasone Furoate (Asmanex 220 Mcg) 1 puff INH DAILY [facility] Oxycodone/Acetaminophen (Percocet 325-5 Mg) 1 tab PO Q4H PRN PRN Reason: Pain (moderate 4-6) Last Admin: 06/18/17 02:14 Dose: 1 tab Rosuvastatin Calcium (Crestor) 20 mg PO BEDTIME [facility] Zolpidem Tartrate (Ambien) 5 mg PO BEDTIME PRN PRN Reason: Sleep Labs: Laboratory Tests 06/17/17 06/17/17 06/17/17 Range/Units 21:36 21:40 21:40 WBC 13.4 H (5.0-10.0) 10^3/uL RBC 4.14 L (4.2-5.4) 10^6/uL Hgb 12.2 (12.0-16.0) g/dL Hct 35.6 L (37.0-47.0) % MCV 86.0 (80-100) fL MCH 29.5 (27.0-34.0) pg MCHC 34.3 (33.0-35.0) g/dL Plt Count 317 D (150-450) 10^3/uL Neut % (Auto) 72.3 (42.2-75.2) % Lymph % (Auto) 17.4 L (20.5-50.1) % [place] % (Auto) 5.1 (2-8) % Eos % (Auto) 4.9 H (1.0-3.0) % Baso % (Auto) 0.3 (0.0-1.0) % ABG pH (7.35-7.45) ABG pCO2 (35-45) mmHg ABG pO2 (70-100) mmHg ABG HCO3 (22-26) mmol/L ABG O2 Saturation (95-100) % ABG Base Excess ((-2)-(+3)) mmol/L O2 Delivery Device Sodium 127 L (135-145) mmol/L Potassium 4.1 (3.6-5.0) mmol/L Chloride 100 L (101-111) mmol/L Carbon Dioxide 21.0 (21.0-31.0) mmol/L Anion Gap 10.1 BUN 39 H (7-18) mg/dL Creatinine 1.4 H (0.6-1.3) mg/dL Est Cr Clr Drug Dosing 51.73 mL/min Estimated GFR (MDRD) 41 BUN/Creatinine Ratio 27.85 Glucose 375 H (74-105) mg/dL POC Glucose 463 H* (70-105) mg/dl Lactic Acid (0.5-2.2) mmol/L Calcium 8.1 L (8.4-10.2) mg/dl Total Bilirubin 0.3 (0.2-1.0) mg/dL AST 14 (10-42) IU/L ALT 10 (10-60) IU/L Alkaline Phosphatase 127 H (42-121) IU/L Total Protein 7.1 (6.7-8.2) g/dl Albumin 3.1 L (3.2-5.5) g/dl Globulin 4.0 Albumin/Globulin Ratio 0.78 Urine Color (YELLOW) Urine Appearance (CLEAR) Urine pH (5.0-9.0) Ur Specific [place] (1.005-1.030) Urine Protein (NEGATIVE) Urine Glucose (UA) (NEGATIVE) Urine Ketones (NEGATIVE) Urine Occult Blood (NEGATIVE) Urine Nitrite (NEGATIVE) Urine Bilirubin (NEGATIVE) Urine Urobilinogen (0.2-1.0) mg/dL Ur Leukocyte Esterase (NEGATIVE) Urine RBC /HPF Urine WBC (0-5/HPF) /HPF Ur Epithelial Cells /HPF Urine Bacteria (0-FEW/HPF) /HPF Ketones Negative 06/17/17 06/17/17 06/17/17 Range/Units 21:40 21:53 22:46 WBC (5.0-10.0) 10^3/uL RBC (4.2-5.4) 10^6/uL Hgb (12.0-16.0) g/dL Hct (37.0-47.0) % MCV (80-100) fL MCH (27.0-34.0) pg MCHC (33.0-35.0) g/dL Plt Count (150-450) 10^3/uL Neut % (Auto) (42.2-75.2) % Lymph % (Auto) (20.5-50.1) % [place] % (Auto) (2-8) % Eos % (Auto) (1.0-3.0) % Baso % (Auto) (0.0-1.0) % ABG pH 7.32 L (7.35-7.45) ABG pCO2 37 (35-45) mmHg ABG pO2 62 L (70-100) mmHg ABG HCO3 18.4 L (22-26) mmol/L ABG O2 Saturation 93 L (95-100) % ABG Base Excess -7 L ((-2)-(+3)) mmol/L O2 Delivery Device Room air Sodium (135-145) mmol/L Potassium (3.6-5.0) mmol/L Chloride (101-111) mmol/L Carbon Dioxide (21.0-31.0) mmol/L Anion Gap BUN (7-18) mg/dL Creatinine (0.6-1.3) mg/dL Est Cr Clr Drug Dosing mL/min Estimated GFR (MDRD) BUN/Creatinine Ratio Glucose (74-105) mg/dL POC Glucose 255 H (70-105) mg/dl Lactic Acid 1.7 (0.5-2.2) mmol/L Calcium (8.4-10.2) mg/dl Total Bilirubin (0.2-1.0) mg/dL AST (10-42) IU/L ALT (10-60) IU/L Alkaline Phosphatase (42-121) IU/L Total Protein (6.7-8.2) g/dl Albumin (3.2-5.5) g/dl Globulin Albumin/Globulin Ratio Urine Color (YELLOW) Urine Appearance (CLEAR) Urine pH (5.0-9.0) Ur Specific [place] (1.005-1.030) Urine Protein (NEGATIVE) Urine Glucose (UA) (NEGATIVE) Urine Ketones (NEGATIVE) Urine Occult Blood (NEGATIVE) Urine Nitrite (NEGATIVE) Urine Bilirubin (NEGATIVE) Urine Urobilinogen (0.2-1.0) mg/dL Ur Leukocyte Esterase (NEGATIVE) Urine RBC /HPF Urine WBC (0-5/HPF) /HPF Ur Epithelial Cells /HPF Urine Bacteria (0-FEW/HPF) /HPF Ketones 06/18/17 Range/Units 00:41 WBC (5.0-10.0) 10^3/uL RBC (4.2-5.4) 10^6/uL Hgb (12.0-16.0) g/dL Hct (37.0-47.0) % MCV (80-100) fL MCH (27.0-34.0) pg MCHC (33.0-35.0) g/dL Plt Count (150-450) 10^3/uL Neut % (Auto) (42.2-75.2) % Lymph % (Auto) (20.5-50.1) % [place] % (Auto) (2-8) % Eos % (Auto) (1.0-3.0) % Baso % (Auto) (0.0-1.0) % ABG pH (7.35-7.45) ABG pCO2 (35-45) mmHg ABG pO2 (70-100) mmHg ABG HCO3 (22-26) mmol/L ABG O2 Saturation (95-100) % ABG Base Excess ((-2)-(+3)) mmol/L O2 Delivery Device Sodium (135-145) mmol/L Potassium (3.6-5.0) mmol/L Chloride (101-111) mmol/L Carbon Dioxide (21.0-31.0) mmol/L Anion Gap BUN (7-18) mg/dL Creatinine (0.6-1.3) mg/dL Est Cr Clr Drug Dosing mL/min Estimated GFR (MDRD) BUN/Creatinine Ratio Glucose (74-105) mg/dL POC Glucose (70-105) mg/dl Lactic Acid (0.5-2.2) mmol/L Calcium (8.4-10.2) mg/dl Total Bilirubin (0.2-1.0) mg/dL AST (10-42) IU/L ALT (10-60) IU/L Alkaline Phosphatase (42-121) IU/L Total Protein (6.7-8.2) g/dl Albumin (3.2-5.5) g/dl Globulin Albumin/Globulin Ratio Urine Color Yellow (YELLOW) Urine Appearance Cloudy (CLEAR) Urine pH 5.0 (5.0-9.0) Ur Specific [place] 1.020 (1.005-1.030) Urine Protein >=300 H (NEGATIVE) Urine Glucose (UA) >=1000 H (NEGATIVE) Urine Ketones Negative (NEGATIVE) Urine Occult Blood Small H (NEGATIVE) Urine Nitrite Negative (NEGATIVE) Urine Bilirubin Negative (NEGATIVE) Urine Urobilinogen 0.2 (0.2-1.0) mg/dL Ur Leukocyte Esterase Small H (NEGATIVE) Urine RBC 0-5 /HPF Urine WBC Semi-packed H (0-5/HPF) /HPF Ur Epithelial Cells Many H /HPF Urine Bacteria Many H (0-FEW/HPF) /HPF Ketones Meds: Medications Generic Name Dose Route Start Last Admin Trade Name Freq PRN Reason Stop Dose Admin Acetaminophen 650 mg 06/18/17 01:23 Tylenol PO Q4H PRN Pain (Mild 1-3)/fever Albuterol 0 gm 06/18/17 01:23 Proventil Hfa INH Q4H PRN Dyspnea Aspirin 81 mg 06/18/17 09:00 Halfprin PO DAILY [facility] Clopidogrel Bisulfate 75 mg 06/18/17 09:00 Plavix PO DAILY [facility] Cyclobenzaprine HCl 10 mg 06/18/17 01:23 Flexeril PO TID PRN pain - moderate Dextrose/Water 50 ml 06/18/17 01:26 Dextrose 50% In Water IVPUSH ONETIME PRN Hypoglycemia Gabapentin 300 mg 06/18/17 09:00 Neurontin PO TID [facility] Heparin Sodium (Porcine) 5,000 units 06/18/17 06:00 06/18/17 05:44 Heparin Sodium SUBCUT 5,000 units Q8HR [facility] Administration Sodium Chloride 1,000 mls @ 100 mls/hr 06/18/17 01:19 06/18/17 02:17 Normal Saline IV 100 mls/hr DAILY [facility] Administration Ceftriaxone Sodium 1,000 mg/ 100 mls @ 200 mls/hr 06/18/17 02:00 06/18/17 02: 17 Sodium Chloride IV 200 mls/hr Q24H [facility] Administration Insulin Aspart 30 unit 06/18/17 09:00 Novolog SUBCUT TID [facility] Insulin Aspart 0 unit 06/18/17 08:00 Novolog SUBCUT TID@0800,1200,1700 [facility] Protocol Insulin Aspart 0 unit 06/18/17 21:00 Novolog SUBCUT BEDTIME [facility] Protocol Insulin Detemir 30 unit 06/18/17 09:00 Levemir SUBCUT BID [facility] Levetiracetam 500 mg 06/18/17 09:00 Keppra PO BID [facility] Mometasone Furoate 1 puff 06/18/17 09:00 Asmanex 220 Mcg INH DAILY [facility] Oxycodone/Acetaminophen 1 tab 06/18/17 01:19 06/18/17 02:14 Percocet 325-5 Mg PO 1 tab Q4H PRN Administration Pain (moderate 4-6) Rosuvastatin Calcium 20 mg 06/18/17 21:00 Crestor PO BEDTIME [facility] Zolpidem Tartrate 5 mg 06/18/17 01:23 Ambien PO BEDTIME PRN Sleep Discontinued Medications Generic Name Dose Route Start Last Admin Trade Name Noel PRN Reason Stop Dose Admin Acetaminophen 650 mg 06/17/17 23:13 06/18/17 00:18 Tylenol PO 06/17/17 23:14 650 mg NOW ONE Administration Sodium Chloride 1,000 mls @ 999 mls/hr 06/17/17 21:32 06/17/17 21:46 Normal Saline IV 06/17/17 22:32 999 mls/hr .BOLUS ONE Administration Sodium Chloride 1,000 mls @ 999 mls/hr 06/17/17 23:37 06/17/17 23:41 Normal Saline IV 06/18/17 00:37 999 mls/hr .BOLUS ONE Administration Insulin Aspart 0 unit 06/18/17 09:00 Novolog SUBCUT QID [facility] Protocol Insulin Aspart 0 unit 06/18/17 02:00 06/18/17 02:13 Novolog SUBCUT 06/18/17 02:01 Not Given ONETIME ONE Protocol Insulin Human Regular 10 unit 06/17/17 22:00 06/17/17 22:12 Humulin R IV 06/17/17 22:01 10 units ONETIME ONE Administration Protocol Non-Formulary Medication 30 units 06/18/17 09:00 Insulin Glarg,Human.Rec.Analog SQ BID [facility] Non-Formulary Medication 1,000 mg 06/18/17 09:00 Sitagliptin Phos/Metformin Hcl [Janumet 50-1,000 Mg] PO DAILY [facility] - Radiology Interpretation Free Text/Narrative:: right ankle: no fracture or dislocation - Re-Assessments/Exams Free Text/Narrative Re-Assessment/Exam: 06/18/17 07:47 Dr Sparks accepting of patient for ongoing management of hyperglycemia Departure - Departure Time of Disposition: 00:45 Disposition: Admitted As Inpatient 68 Condition: Fair Clinical Impression: Sprain of right ankle Qualifiers: Encounter type: initial encounter Involved ligament of ankle: unspecified ligament Qualified Code(s): S93.401A - Sprain of unspecified ligament of right ankle, initial encounter Fall at home Qualifiers: Encounter type: initial encounter Qualified Code(s): W19.XXXA - Unspecified fall, initial encounter Diabetes mellitus type 2, uncontrolled Qualifiers: Diabetes mellitus emt intermediate insulin use: with emt intermediate use Diabetes mellitus complication status: with hyperglycemia Qualified Code(s): E11.65 - Type 2 diabetes mellitus with hyperglycemia - Discharge Information - My Orders Last 24 Hours: My Active Orders 06/18/17 00:41 UA W/MICROSCOPIC [URIN] Stat - Assessment/Plan Last 24 Hours: My Active Orders 06/18/17 00:41 UA W/MICROSCOPIC [URIN] Stat
[2017-06-18] MEDS: Insulin Aspart 100 Units/ML 3 ML Pen SUBCUT SCH ×6 (08:19→21:48)
[2017-06-18] MEDS ORDERED: Insulin Aspart 100 Units/ML 3 ML Pen SUBCUT SCH (09:00)
[2017-06-18] MEDS ORDERED: METFORMIN HCL PO SCH (09:00)
[2017-06-18] MEDS ORDERED: SITAGLIPTIN PHOS PO SCH (09:00)
[2017-06-18] MEDS: Clopidogrel 75 MG Tab PO SCH (09:00)
[2017-06-18] MEDS: levETIRAcetam 500 MG Tab PO SCH ×2 (09:00→20:53)
[2017-06-18] MEDS: Gabapentin 300 MG Cap PO SCH ×3 (09:00→20:53)
[2017-06-18] MEDS ORDERED: [UNRECOGNIZED DRUG - OTHER] PO SCH (09:00)
[2017-06-18] MEDS ORDERED: Insulin Detemir 100 Units/ML 3 ML Pen SUBCUT SCH (09:00)
[2017-06-18] MEDS: Aspirin 81 MG Tab.EC PO SCH (09:00)
[2017-06-18] MEDS ORDERED: INSULIN GLARG HUMAN REC ANALOG 30 UNIT SQ SCH (09:00)
[2017-06-18] MEDS: Mometasone Furoate Powder 220 MCG/Puff 14 Dose Inhaler INH SCH (09:01)
--- NOTE | 2017-06-18 13:40 | PN ---
DATE: 06/18/2017 SUBJECTIVE: Ms. Melvi Ndiaye is a 46-year-old female with medical history significant for hypertension, hyperlipidemia, type 2 diabetes mellitus, obesity, was admitted to the hospital after she had uncontrolled diabetes, dehydration, possible urinary tract infection, and had a fall at her home resulting in right ankle sprain. For the last 24 hours, the patient continues to have pain to the right ankle site. She grades the pain as 6/10 in intensity, aggravated on movement and ambulation, relieved with pain medication, nonradiating type of pain, not associated with nausea or vomiting. Denies any chest pain. No shortness of breath. No abdominal pain. No diarrhea. REVIEW OF SYSTEMS: Cardiovascular, respiratory, gastrointestinal, neurology, constitutional were all evaluated. PHYSICAL EXAMINATION: Vital Signs: Temperature of 98.5, pulse of 88, blood pressure of 117/67, respiratory rate of 14, and saturating at 99% on room air. General Appearance: The patient is well oriented to time, place, and person. Follows commands spontaneously. Cardiovascular System: S1, S2 heard with normal intensity. No gallops. Respiratory System: Clear to auscultation bilaterally. No wheeze. No crepitations. Abdomen: Soft. Bowel sounds positive. Nontender. No rigidity. Extremities: No edema in the bilateral lower extremities. Mild swelling noted around the right ankle. No signs of fracture noted at this time. Neurology: No gross focal neurological deficit. MEDICATIONS: Medications reviewed. Continue with: 1. Tylenol 650 every 4 hours as needed for pain. 2. Albuterol inhalation as needed. 3. Aspirin 81 mg daily. 4. Ceftriaxone 1 g daily. 5. Plavix 75 mg daily. 6. Flexeril 10 mg 3 times a day as needed for pain. 7. Neurontin 300 mg 3 times a day. 8. Heparin 5000 subcutaneous q.8 hourly. 9. NovoLog supplemental scale along with 30 units 3 times a day. 10.Levemir 30 units twice a day. 11.Keppra 500 mg twice a day. 12.Percocet 5/325 mg every 4 hours as needed for pain. 13.Crestor 20 mg at bedtime. 14.Ambien 5 mg at bedtime as needed. LABORATORY DATA: Labs reviewed. 1. WBC 10.3, improved from 13.4; hemoglobin 10.6; hematocrit 31.4; platelet count 259. 2. Sodium 130, potassium 4.5, chloride 103, bicarb 21, BUN 31, creatinine 1.1, glucose 246. 3. Awaiting for urine culture report. ASSESSMENT: 1. Type 2 diabetes mellitus, uncontrolled. 2. Hyponatremia. 3. Acute renal failure, improved. 4. Leukocytosis, improved. 5. Urinary tract infection. 6. Right ankle sprain. 7. Hypertension with low blood pressure. 8. Morbid obesity. 9. History of chronic opioid use. 10.History of seizures. PLAN: 1. Type 2 diabetes mellitus, seems to be improved at this time. She is started back on the insulin regimen. We will continue with current dose of insulin. We will further dose adjust the medications. She continues to have elevated blood sugars but much improved from the time of admission. We will increase the Levemir to 40 units twice a day for better control of the blood sugars. 2. Hypertension. The patient continues to have low blood pressure. Try to avoid any antihypertensive medications. Keep her hydrated with IV fluids. 3. Hyponatremia. This is much improved. Her sodium at admission was 127, now at 130. Continue with IV normal saline. Recheck a BMP in the a.m. 4. Urinary tract infection. The patient is noted to have leukocytosis, still awaiting for urine culture. She is empirically started on ceftriaxone. Continue the same. 5. Right ankle sprain. The patient fell down at her home before coming to the ER, and no fracture noted on the right ankle x-ray. The patient could have sprained the ankle, will have an Joss wrap done. We will have Physical Therapy and Occupational Therapy evaluate and treat the patient as the patient is having difficulty ambulating. She may need a walker for few days till this pain gets resolved. 6. Discussed with family members at bedside. [facility] /[id number]
[2017-06-18] MEDS: Rosuvastatin 10 MG Tab PO SCH (20:53)
[2017-06-18] MEDS: cefTRIAXone 1 GM Vial IVPUSH SCH (20:54)
[2017-06-18] MEDS: Zolpidem 5 MG Tab PO PRN (21:21)
[2017-06-18] MEDS: Insulin Detemir 100 Units/ML 3 ML Pen SUBCUT SCH (21:47)
[2017-06-19] MEDS: Acetaminophen/oxyCODONE 325-5 MG Tab PO PRN ×4 (03:03→22:03)
[2017-06-19] MEDS: Heparin Sodium 5,000 Units/ML Vial SUBCUT SCH ×3 (06:05→22:03)
[2017-06-19] MEDS: Insulin Aspart 100 Units/ML 3 ML Pen SUBCUT SCH ×7 (08:37→20:54)
[2017-06-19] MEDS: Insulin Detemir 100 Units/ML 3 ML Pen SUBCUT SCH ×2 (08:39→20:53)
[2017-06-19] MEDS: Clopidogrel 75 MG Tab PO SCH (08:40)
[2017-06-19] MEDS: Aspirin 81 MG Tab.EC PO SCH (08:40)
[2017-06-19] MEDS: levETIRAcetam 500 MG Tab PO SCH ×2 (08:40→20:45)
[2017-06-19] MEDS: Gabapentin 300 MG Cap PO SCH ×3 (08:40→20:45)
[2017-06-19] MEDS: Mometasone Furoate Powder 220 MCG/Puff 14 Dose Inhaler INH SCH (08:40)
[2017-06-19] MEDS: Sodium Chloride 0.9% 1,000 ML IV SCH (13:07)
--- NOTE | 2017-06-19 13:38 | PN ---
DATE: 06/19/2017 SUBJECTIVE: Mrs. Melvi Owen is a 46-year-old, female with medical history significant for type 2 diabetes mellitus, hypertension, hyperlipidemia, and obesity, admitted to the hospital with uncontrolled diabetes, dehydration, possible urinary tract infection and having a fall at her home resulting in ankle sprain to the right lower extremity. For the last 24 hours, the patient continues to have pain to the right ankle site 4 to 5/10 in intensity, aggravated on movement, relieved with rest and pain medication, nonradiating type of pain, not associated with any nausea or vomiting. Denies any chest pain. No shortness of breath. No abdominal pain. No nausea. No vomiting. No diarrhea. REVIEW OF SYSTEMS: Cardiovascular, respiratory, gastrointestinal, neurology, and constitutional were all evaluated. OBJECTIVE: Vital Signs: Temperature of 98, pulse of 84, blood pressure of 126/73, respiratory rate of 20, and saturating at 100% on room air. General Appearance: The patient is well oriented to time, place, and person. Follows commands spontaneously. Cardiovascular: S1, S2 heard with normal intensity. No gallops. Respiratory: Clear to auscultation bilaterally. No wheeze. No crepitations. Abdomen: Soft. Bowel sounds positive. Nontender. No rigidity. Extremities: No edema in bilateral lower extremities. Joss wrap noted to the right ankle. Neurologic: No gross focal neurological deficit. MEDICATIONS: Reviewed. Continue with: 1. Tylenol 650 every 4 hours as needed for pain. 2. Aspirin 81 mg daily. 3. Ceftriaxone 1 g daily. 4. Plavix 75 mg daily. 5. Flexeril 10 mg 3 times a day as needed for pain. 6. Neurontin 300 mg 3 times a day. 7. Heparin 5000 subcutaneous q.8 hourly. 8. NovoLog supplemental scale along with 35 units 3 times a day with each meals and Levemir increased to 50 units twice a day. 9. Keppra 500 mg twice a day. 10.Crestor 20 mg at bedtime. 11.Ambien 5 mg at bedtime as needed for sleep. LABORATORY DATA: Reviewed WBC 8.1, hemoglobin 10.8, hematocrit 32.4, and platelet count 261. Sodium 134, potassium 4.5 chloride 107, bicarb 22, BUN 21, creatinine 1.1, and glucose 264. ASSESSMENT: 1. Urinary tract infection. Urine culture showing possible Enterococcus and probable Escherichia coli. 2. Type 2 diabetes mellitus, uncontrolled. 3. Acute renal failure, improving. 4. Hyponatremia, improving. 5. Leukocytosis, resolved. 6. Anemia, possible anemia of chronic disease. 7. Hypertension. 8. Hyperlipidemia. 9. Chronic pain syndrome. 10.Right ankle sprain. 11.Morbid obesity. 12.History of seizures. PLAN: 1. Urinary tract infection. The patient is growing 2 kinds of bacteria, enterococcus and possible E. coli, and susceptibility to be follow. She is currently on ceftriaxone. She remains afebrile, and leukocytosis resolved, so we will continue the ceftriaxone for now. 2. Hyponatremia, much improved. The patient did receive IV fluids on this admission. We will recheck a basic metabolic panel in a.m. 3. Acute renal failure, improved. Avoid any nephrotoxic agents. Dose adjust medications for renal function. 4. Hypertension, seems to be well controlled. Continue with current treatment plan. 5. Type 2 diabetes mellitus, uncontrolled. The patient is noted to have elevated blood sugars. We have been titrating up the insulin. We will increase the NovoLog to 35 units 3 times a day and increase the Levemir to 50 units twice a day. Check her fingersticks with each meals. Have her on supplemental scale insulin. We will have her on hypoglycemic protocol also. 6. History of seizures. She is currently on Keppra. Continue the same. 7. Right ankle sprain. The patient had a fall at her home spraining the right ankle. X-ray of the ankle did not show any fractures. We have an Joss wrap on. Continue with pain control. Continue with Neurontin. 8. The patient is using walker to ambulate around. We will have Physical Therapy and Occupational Therapy evaluate and treat the patient. 9. Discussed with family members at bedside. [facility] /[id number]
[2017-06-19] MEDS: cefTRIAXone 1 GM Vial IVPUSH SCH (20:44)
[2017-06-19] MEDS: Rosuvastatin 10 MG Tab PO SCH (20:45)
[2017-06-19] MEDS: Zolpidem 5 MG Tab PO PRN (22:03)
[2017-06-20] MEDS: Acetaminophen/oxyCODONE 325-5 MG Tab PO PRN ×5 (03:05→19:31)
[2017-06-20] MEDS: Heparin Sodium 5,000 Units/ML Vial SUBCUT SCH ×3 (06:09→22:01)
[2017-06-20 06:48] LABS: CHLORIDE,CL 109 mmol/L (101-111); SODIUM,NA 138 mmol/L (135-145)
[2017-06-20] MEDS: levETIRAcetam 500 MG Tab PO SCH ×2 (08:14→20:34)
[2017-06-20] MEDS: Gabapentin 300 MG Cap PO SCH ×3 (08:14→20:34)
[2017-06-20] MEDS: Aspirin 81 MG Tab.EC PO SCH (08:14)
[2017-06-20] MEDS: Clopidogrel 75 MG Tab PO SCH (08:14)
[2017-06-20] MEDS: Mometasone Furoate Powder 220 MCG/Puff 14 Dose Inhaler INH SCH (08:15)
[2017-06-20] MEDS: Insulin Aspart 100 Units/ML 3 ML Pen SUBCUT SCH ×7 (08:15→21:17)
[2017-06-20] MEDS: Insulin Detemir 100 Units/ML 3 ML Pen SUBCUT SCH ×2 (08:22→21:14)
--- NOTE | 2017-06-20 14:37 | PN ---
DATE: 06/20/2017 SUBJECTIVE: Ms. Melvi Ndiaye is a 46-year-old female with medical history significant for hypertension, hyperlipidemia, type 2 diabetes mellitus, obesity, admitted with uncontrolled diabetes, dehydration, and urinary tract infection and having a fall at her home resulting in right ankle sprain. For the last 24 hours, her right ankle pain seems to be improving. She denies any chest pain. No shortness of breath. No abdominal pain. No nausea. No vomiting. No diarrhea. REVIEW OF SYSTEMS: Cardiovascular, respiratory, gastrointestinal, neurology, constitutional were all evaluated. PHYSICAL EXAMINATION: Vital Signs: Temperature of 98.3, pulse of 93, blood pressure 161/78, respiratory rate of 20, saturating at 99% on room air. General Appearance: The patient is well oriented to time, place, and person. Follows commands spontaneously. Cardiovascular System: S1, S2 heard with normal intensity. No gallops noted. Respiratory System: Clear to auscultation bilaterally. No wheeze. No crepitations. Abdomen: Soft. Bowel sounds positive. Nontender. No rigidity. Extremities: No edema, bilateral lower extremities. Joss wrap to the right ankle. LABORATORY DATA: Sodium 138, potassium 3.9, chloride 109, bicarb 22, BUN 13, creatinine 0.9, glucose 185. Urine culture positive for E. coli Enterococcus faecalis and mixed gram-positive isolate, all sensitive to ciprofloxacin. MEDICATIONS: Reviewed. Discontinue the IV ceftriaxone and started on oral ciprofloxacin. ASSESSMENT: 1. Urinary tract infection. 2. Acute renal failure. 3. Type 2 diabetes mellitus. 4. Hypertension. 5. Hyperlipidemia. 6. Anemia. 7. Chronic pain syndrome. 8. Right ankle sprain. 9. Morbid obesity. 10.History of seizures. PLAN: 1. Urinary tract infection. The patient is noted to have multi-florin in the urine culture with E. coli and Enterococcus, all sensitive to ciprofloxacin. We will discontinue the IV ceftriaxone and start her on oral ciprofloxacin. 2. Right ankle sprain. Continue with Joss wrap. The patient's pain seems to be improved. The patient is encouraged to use cold packs as needed for controlling the pain. Continue pain medications also. 3. Type 2 diabetes mellitus, improving. We had to increase her insulin regimen on this admission. The patient was explained about changes in her medications. She will continue with consistent carbohydrate diet. 4. Acute renal failure, improved with IV hydration. The patient was noted to have acute renal failure at the time of admission. Her creatinine is back to her baseline function. 5. Hyponatremia, resolved. The patient's sodium is back to baseline. 6. History of seizures, continue with Keppra for now. 7. Possible discharge in a.m. if she remains hemodynamically stable. [facility] /[id number]
[2017-06-20] MEDS: Ciprofloxacin 500 MG Tab PO SCH (20:34)
[2017-06-20] MEDS: Rosuvastatin 10 MG Tab PO SCH (20:34)
[2017-06-20] MEDS: Zolpidem 5 MG Tab PO PRN (22:01)
[2017-06-21] MEDS: Acetaminophen/oxyCODONE 325-5 MG Tab PO PRN ×3 (00:47→11:34)
[2017-06-21] MEDS: Heparin Sodium 5,000 Units/ML Vial SUBCUT SCH (05:38)
--- NOTE | 2017-06-21 07:38 | EKG ---
06/17/2017- PAGE, DAIJA MELGAR - FINDINGS: A 12-lead EKG shows normal sinus rhythm with sinus tachycardia with heart rate of 111. Nonspecific ST-T wave changes noted on leads V2 and V3. No significant ST elevation or ST depression noted on this 12-lead EKG. [facility] /[id number]
[2017-06-21] MEDS: Insulin Aspart 100 Units/ML 3 ML Pen SUBCUT SCH ×4 (08:11→12:06)
[2017-06-21] MEDS: Aspirin 81 MG Tab.EC PO SCH (08:12)
[2017-06-21] MEDS: Gabapentin 300 MG Cap PO SCH (08:12)
[2017-06-21] MEDS: Clopidogrel 75 MG Tab PO SCH (08:12)
[2017-06-21] MEDS: Ciprofloxacin 500 MG Tab PO SCH (08:12)
[2017-06-21] MEDS: levETIRAcetam 500 MG Tab PO SCH (08:13)
[2017-06-21] MEDS: Mometasone Furoate Powder 220 MCG/Puff 14 Dose Inhaler INH SCH (08:13)
[2017-06-21 10:54] VITALS: BP 135/80
--- NOTE | 2017-06-21 12:08 | DISCH ---
DATE OF ADMISSION: 06/18/17. DATE OF DISCHARGE: 06/21/17. ADMITTING DIAGNOSES: 1. Type 2 diabetes mellitus, uncontrolled with severe hyperglycemia. 2. Urinary tract infection. 3. Hyponatremia. 4. Acute renal failure. 5. Hypotension. 6. Obesity. DISCHARGE DIAGNOSES: 1. Urinary tract infection with multi-florin including E. coli Enterococcus, sensitive to ciprofloxacin. 2. Hypotension episode resolved. 3. Acute renal failure, resolved. 4. Hyponatremia, resolved. 5. Type 2 diabetes mellitus. HISTORY OF PRESENT ILLNESS: Ms. Melvi Ndiaye is a 46-year-old female with medical history significant for hypertension, hyperlipidemia, type 2 diabetes mellitus, diabetes complicated with neuropathy, obesity, history of seizure disorder, presented to the hospital with complaints of increasing weakness, tiredness, and dizziness and was noted to have urinary tract infection leading to hypotensive episode. She was also noted to have acute renal failure with creatinine of 1.4 at the time of admission with elevated BUN up to 39 and hyponatremia with sodium of 127. The patient responded well to the IV fluids. Her sodium at the time of discharge was 138 and creatinine back to her baseline function, 0.9. She was also noted to have leukocytosis secondary to urinary tract infection. WBC count was 13.4 at the time of admission, improved to 8.1. Her urine culture was positive for E. coli Enterococcus and mixed gram-positive isolated which were all sensitive to ciprofloxacin. She was changed to oral ciprofloxacin at the time of discharge. She was also noted to have ankle pain after she fell down, no ankle fracture noted on x-ray of the ankle. She had Joss wrap done and then she was able to ambulate well without any difficulty. She is discharged home in stable condition. She is advised to continue ciprofloxacin for next 5 days. She is advised to follow with the primary care physician in next 1 week of time. DISCHARGE MEDICATIONS: Include, 1. Tylenol 650 every 4 hours as needed for pain and fever. 2. Oxycodone 5/325 mg every 4 hours as needed for pain for next 5 days. 3. Albuterol 2 puffs inhalation every 4 hours as needed for dyspnea. 4. Aspirin 81 mg daily. 5. Ciprofloxacin 500 mg twice a day. 6. Plavix 75 mg once a day. 7. Flexeril 10 mg 3 times a day as needed. 8. Flovent 2 puff inhalation twice daily. 9. Neurontin 600 mg 3 times a day. 10.Lantus 30 units twice a day. 11.NovoLog 30 units 3 times a day and supplemental scale as needed. 12.Rosuvastatin one tablet 20 mg daily at bedtime. 13.Ambien 5 mg at bedtime as needed for sleep. 14.Keppra 500 mg twice daily. 15.Janumet 1000 mg daily. PHYSICAL EXAMINATION: On the day of discharge, Vital Signs: Temperature of 97, pulse of 99, blood pressure 135/80, respiratory rate of 18, saturating at 100% on room air. General Appearance: The patient is well oriented to time, place, and person. Follows commands spontaneously. Cardiovascular System: S1, S2 heard with normal intensity. No gallops. Respiratory System: Clear to auscultation bilaterally. No wheeze. No crepitations. Abdomen: Soft. Bowel sounds positive. Nontender. No rigidity. Extremities: No edema, bilateral lower extremities. Neurology: No gross focal neurological deficit. CONDITION ON ADMISSION: Poor. CONDITION ON DISCHARGE: Stable. Discharged to home. ACTIVITY: As tolerated. DIET: Consistent carbohydrate diet and low-sodium diet. FOLLOWUP: Follow up with primary care physician in next 1 week of time. TIME SPENT: Spent over 35 minutes of time in evaluating and treating this patient and making discharge plans. [facility] /[id number] MTDD
[2017-06-21] MEDS ORDERED: Insulin Detemir 100 Units/ML 3 ML Pen SUBCUT SCH (21:00)
== END 2017-06-21 12:35 | disposition home or self-care (01) | DRG 638 ==
LOC: DL.ED 21:28 → DL.MS 06-18 00:25 → UNDOADMIN 06-18 00:25 → DL.MS 06-18 01:19
PROVIDERS: ADMIT Internal Medicine; ATTEND Internal Medicine
DX: E11.65 Type 2 diabetes mellitus with hyperglycemia (principal); F11.20 Opioid dependence, uncomplicated; E87.1 Hypo-osmolality and hyponatremia; N17.9 Acute kidney failure, unspecified; N39.0 Urinary tract infection, site not specified; S93.401A Sprain of unspecified ligament of right ankle, initial encounter; G89.29 Other chronic pain; W18.30XA Fall on same level, unspecified, initial encounter; R53.1 Weakness; I10 Essential (primary) hypertension; R56.9 Unspecified convulsions; E66.9 Obesity, unspecified; J45.909 Unspecified asthma, uncomplicated; M54.9 Dorsalgia, unspecified; M19.90 Unspecified osteoarthritis, unspecified site; E11.42 Type 2 diabetes mellitus with diabetic polyneuropathy; Z68.38 Body mass index [BMI] 38.0-38.9, adult; M25.571 Pain in right ankle and joints of right foot; Z86.73 Personal history of transient ischemic attack (TIA), and cerebral infarction without residual deficits; Z79.82 Long term (current) use of aspirin; Z79.4 Long term (current) use of insulin; Z79.899 Other long term (current) drug therapy; E78.5 Hyperlipidemia, unspecified; E66.01 Morbid (severe) obesity due to excess calories; F41.9 Anxiety disorder, unspecified; F32.9 Major depressive disorder, single episode, unspecified; F17.210 Nicotine dependence, cigarettes, uncomplicated; I95.9 Hypotension, unspecified; E86.0 Dehydration; B96.20 Unspecified Escherichia coli [E. coli] as the cause of diseases classified elsewhere; B95.2 Enterococcus as the cause of diseases classified elsewhere; B96.89 Other specified bacterial agents as the cause of diseases classified elsewhere; D63.1 Anemia in chronic kidney disease; G89.4 Chronic pain syndrome; Z28.21 Immunization not carried out because of patient refusal
CPT/HCPCS: 36415; 36600; 73610; 80053; 81001; 82009; 82803; 82962 ×2; 83605; 85025; 87086; 87186 ×2; 93005; 93010; 96361; 96374; 99284; A9270; J1815; J7030 ×2; 80048; 85027; 87088; 97162-GP; 97165-GO; J0696; J1644; J7050

== ENCOUNTER 2017-09-23 22:08 | Emergency (ER) | payer MEDICARE, MEDICAID ==
[2017-09-23] MEDS ORDERED: Ketorolac 30 MG/ML SDV IM ONE (22:51)
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
[2017-09-23 23:02] VITALS: BP 101/83
[2017-09-24] MEDS ORDERED: Acetaminophen/HYDROcodone 325-10 MG Tab PO ONE (00:08)
== END 2017-09-24 01:24 | disposition home or self-care (01) ==
LOC: DL.ED 22:08
DX: S16.1XXA Strain of muscle, fascia and tendon at neck level, initial encounter (principal); S39.012A Strain of muscle, fascia and tendon of lower back, initial encounter; J45.909 Unspecified asthma, uncomplicated; E11.9 Type 2 diabetes mellitus without complications; Z79.899 Other long term (current) drug therapy; Z79.4 Long term (current) use of insulin; Z79.82 Long term (current) use of aspirin; V49.40XA Driver injured in collision with unspecified motor vehicles in traffic accident, initial encounter
CPT/HCPCS: 72040; 72100; 96372; 99283; A9270; J1885

== ENCOUNTER 2017-09-28 18:38 | Emergency (ER) | payer MEDICARE, MEDICAID ==
[2017-09-28] MEDS ORDERED: Bacitracin Oint 1 GM U/D Packet TOP ONE (19:23)
--- NOTE | 2017-09-28 19:24 | EDM.PDOC ---
ED HPI GENERAL MEDICAL PROBLEM - General Chief Complaint: Burn Stated Complaint: GUTIERREZ [id number] Time Seen by Provider: 09/28/17 19:17 Source of Information: Reports: Patient History Limitations: Reports: No Limitations - History of Present Illness INITIAL COMMENTS - FREE TEXT/NARRATIVE: dementia presented with complaints of an injury to her left hand. Yesterday she was ambulating in her kitchen when she stepped on one of her kids toys falling landing on her left wrist and struck a stove. Since that time she has developed a blister on her left hand as well as some pain in her left wrist. He has taken some ibuprofen with minimal improvement of the pain. She has done nothing for the blister on the palm of her hand or her thumb. Her last tetanus shot was 2-3 years ago. Left Hand Pain Score (Numeric/FACES): 8 - Related Data Allergies Allergy/AdvReac Type Severity Reaction Status Date / Time No Known Allergies Allergy Verified 09/23/17 22:23 Home Meds: Home Meds Albuterol [Proair HFA] 2 puff INH Q4HR PRN 08/21/13 [History] Fluticasone Propionate [Flovent HFA 110 MCG] 2 puff INH BID 08/21/13 [History] sitaGLIPtin Phos/Metformin HCl [Janumet 50-1,000 MG] 1,000 mg PO DAILY 08/21/13 [History] Insulin Aspart [Novolog Flexpen] 40 units SQ TID PRN 03/17/15 [History] Insulin Glarg,Human.Rec.Analog [Lantus] 45 units SQ BID 03/17/15 [History] Gabapentin 600 mg PO TID 09/07/15 [History] Aspirin [Ecotrin] 81 mg PO DAILY 10/01/16 [History] Clopidogrel Bisulfate [Clopidogrel] 1 tab PO DAILY 02/13/17 [History] Rosuvastatin Calcium 1 tab PO BEDTIME 02/13/17 [History] levETIRAcetam [Keppra] 1 tab PO BID 02/13/17 [History] Acetaminophen [Tylenol] 650 mg PO Q4H PRN tablet 04/17/17 [Rx] Zolpidem [Ambien] 5 mg PO BEDTIME PRN #7 tablet 04/17/17 [Rx] Past Medical History HEENT History: Reports: None Cardiovascular History: Reports: Hypertension, Other (See Below) Other Cardiovascular History: hx rhuematic fever Respiratory History: Reports: Asthma Gastrointestinal History: Reports: None Genitourinary History: Reports: None 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: Musculoskeletal History: Reports: Back Pain, Chronic, Osteoarthritis Neurological History: Reports: Neuropathy, Diabetic, Neuropathy, Peripheral, Seizure, TIA Other Neuro History: mini strokes Psychiatric History: Reports: None Endocrine/Metabolic History: Reports: Diabetes, Type II, IDDM, Obesity/BMI 30+ Hematologic History: Reports: None Immunologic History: Reports: None Oncologic (Cancer) History: Reports: None Dermatologic History: Reports: None - Infectious Disease History Infectious Disease History: Reports: Chicken Pox - Past Surgical History Head Surgeries/Procedures: Reports: None Female Surgical History: Reports: Section Social & Family History - Family History Family Medical History: Noncontributory Respiratory: Reports: Asthma Other Respiratory Family Hisory: Brother Endocrine/Metabolic: Reports: Diabetes, type II Other Endocrine/Metabolic Family History: Brother - Tobacco Use Smoking Status *Q: Current Every Day Smoker Years of Tobacco use: 25 Packs/Tins Daily: 0.3 - Caffeine Use Caffeine Use: Reports: Soda - Recreational Drug Use Recreational Drug Use: No - Sexual History Sexual History: Reports: Sexually Active, Single Partner - Living Situation & Occupation Living situation: Reports: with Significant Other, with Family Occupation: Unemployed ED ROS GENERAL - Review of Systems Review Of Systems: ROS reveals no pertinent complaints other than HPI. ED EXAM, BURN/SMOKE INHALATION - Physical Exam Exam: See Below Exam Limited By: No Limitations General Appearance: Alert, WD/WN Head: No Symptoms, Atraumatic Respiratory: No Respiratory Distress, Lungs Clear, No Accessory Muscle Use Cardiovascular: Normal Peripheral Pulses Peripheral Pulses: 2+: Radial (L), Radial (R) (Female) Exam: Deferred Extremities: Arm Pain (she has tenderness throughout the entirety of the left wrist. She is able to flex and extend. There is no bruising swelling ecchymosis or breaks in the skin. On her left hand on the palmar surface of the left metacarpal of the first digit there is a blister that is approximately 2-1/2cm distal to proximal and 1 cm wide. On the distal tip of her left thumb there is also a small pea-shaped fluid-filled blister as well. Small amount of erythema surrounding and no induration.) Neurological: Alert Skin Exam: Warm Course - Vital Signs Last Recorded V/S: Last Vital Signs Temp 36.3 C 09/28/17 21:22 Pulse 89 09/28/17 21:22 Resp 16 09/28/17 21:22 BP 157/95 H 09/28/17 21:22 Pulse Ox 100 09/28/17 21:22 - Orders/Labs/Meds Meds: Medications Discontinued Medications Generic Name Dose Route Start Last Admin Trade Name Noel PRN Reason Stop Dose Admin Bacitracin 1 dose 09/28/17 19:23 09/28/17 21:18 Bacitracin Oint 1 Gm TOP 09/28/17 19:24 1 dose ONETIME ONE Administration - Radiology Interpretation Free Text/Narrative:: xray of the wrist negative per radiology. Departure - Departure Time of Disposition: 21:13 Disposition: Home, Self-Care 01 Clinical Impression: Left wrist sprain Qualifiers: Encounter type: initial encounter Qualified Code(s): S63.502A - Unspecified sprain of left wrist, initial encounter 2nd deg burn hand Qualifiers: Encounter type: initial encounter Burn of hand location: unspecified site Laterality: left Qualified Code(s): T23.202A - Burn of second degree of left hand, unspecified site, initial encounter - Discharge Information Instructions: Burn Care, Adult, [id number], Wrist Sprain, Adult, Pain Medicine Instructions, [id number] Forms: ED Department Discharge Additional Instructions: Tylenol and or Ibuprofen as needed for pain. Bacitracin and bandage to the gutierrez until healed. Do not pop blisters and allow to stay intact. RICE therapy to the left wrist. Wrist splint for comfort. Return to the ED if new or worsening symptoms. Recheck PCP in 7 days if not improving sooner if worse. - Assessment/Plan Assessment:: partial thickness gutierrez to the left pal and left thumb. Wrist sprain. Plan: Tylenol and or Ibuprofen as needed for pain. Bacitracin and bandage to the gutierrez until healed. Do not pop blisters and allow to stay intact. RICE therapy to the left wrist. Wrist splint for comfort. Return to the ED if new or worsening symptoms. Recheck PCP in 7 days if not improving sooner if worse.
[2017-09-28 21:23] VITALS: BP 157/95
== END 2017-09-28 21:25 | disposition home or self-care (01) ==
LOC: DL.ED 18:38
DX: T23.212A Burn of second degree of left thumb (nail), initial encounter (principal); T23.202A Burn of second degree of left hand, unspecified site, initial encounter; S63.502A Unspecified sprain of left wrist, initial encounter; E11.40 Type 2 diabetes mellitus with diabetic neuropathy, unspecified; I10 Essential (primary) hypertension; F17.210 Nicotine dependence, cigarettes, uncomplicated; Z79.899 Other long term (current) drug therapy; Z79.82 Long term (current) use of aspirin; Z79.4 Long term (current) use of insulin; W20.8XXA Other cause of strike by thrown, projected or falling object, initial encounter; X15.0XXA Contact with hot stove (kitchen), initial encounter
CPT/HCPCS: 73100-LT; 99283

== ENCOUNTER 2017-11-10 17:28 | Emergency (ER) | payer MEDICARE, MEDICAID ==
[2017-11-10] MEDS: Sodium Chloride 0.9% 10 ML Syringe FLUSH PRN ×2 (17:55→18:40)
[2017-11-10] MEDS ORDERED: Sodium Chloride 0.9% 1,000 ML IV ONE (18:24)
[2017-11-10] MEDS ORDERED: Insulin Regular, Human 100 Units/ML 3 ML Vial IV ONE (18:24)
[2017-11-10 18:39] LABS: CHLORIDE,CL 98 mmol/L (101-111); SODIUM,NA 131 mmol/L (135-145)
--- NOTE | 2017-11-10 18:52 | EDM.PDOC ---
Scribed by Bertha Spivey 11/10/17 1844 for Shankar Maldonado MD <Shankar Maldonado - Last Filed: 11/10/17 18:49> ED HPI GENERAL MEDICAL PROBLEM - General Chief Complaint: Neuro Symptoms/Deficits Stated Complaint: POSSIBLE SMALL STROKE [id number] Time Seen by Provider: 11/10/17 17:34 Source of Information: Reports: Patient, RN, RN Notes Reviewed History Limitations: Reports: No Limitations - History of Present Illness INITIAL COMMENTS - FREE TEXT/NARRATIVE: Patient presents to ER with complaint of "possible stroke". Patient reports onset one week ago of profound right lower extremity weakness with some right upper extremity weakness and loss of bowel and bladder control. Pt states that she has had multiple falls over the past several days. Her blood sugars have been running over 380's. She denies fever, chills, N/V, cough, or abdominal pain. Patient has history of morbid obesity, uncontrolled diabetes mellitus type II insulin dependent, tobacco dependence, CVA, seizure disorder, TIA, hypertension , hyperlipidemia and asthma. She denies any headache, fever or chills. Onset: Today Duration: Constant Location: Reports: Upper Extremity, Right, Lower Extremity, Right Quality: Reports: Other (denies pain) Severity: Severe Improves with: Reports: None Worsens with: Reports: None Associated Symptoms: Reports: No Other Symptoms Back Pain Score (Numeric/FACES): 8 - Related Data Allergies Allergy/AdvReac Type Severity Reaction Status Date / Time No Known Allergies Allergy Verified 09/23/17 22:23 Home Meds: Home Meds Albuterol [Proair HFA] 2 puff INH Q4HR PRN 08/21/13 [History] Fluticasone Propionate [Flovent HFA 110 MCG] 2 puff INH BID 08/21/13 [History] sitaGLIPtin Phos/Metformin HCl [Janumet 50-1,000 MG] 1,000 mg PO DAILY 08/21/13 [History] Insulin Aspart [Novolog Flexpen] 40 units SQ TID PRN 03/17/15 [History] Insulin Glarg,Human.Rec.Analog [Lantus] 45 units SQ BID 03/17/15 [History] Gabapentin 600 mg PO TID 09/07/15 [History] Aspirin [Ecotrin] 81 mg PO DAILY 10/01/16 [History] Clopidogrel Bisulfate [Clopidogrel] 1 tab PO DAILY 02/13/17 [History] Rosuvastatin Calcium 1 tab PO BEDTIME 02/13/17 [History] levETIRAcetam [Keppra] 1 tab PO BID 02/13/17 [History] Acetaminophen [Tylenol] 650 mg PO Q4H PRN tablet 04/17/17 [Rx] Zolpidem [Ambien] 5 mg PO BEDTIME PRN #7 tablet 04/17/17 [Rx] Past Medical History HEENT History: Reports: None Cardiovascular History: Reports: Hypertension, Other (See Below) Other Cardiovascular History: hx rhuematic fever Respiratory History: Reports: Asthma Gastrointestinal History: Reports: None Genitourinary History: Reports: 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: Musculoskeletal History: Reports: Back Pain, Chronic, Osteoarthritis Neurological History: Reports: Neuropathy, Diabetic, Neuropathy, Peripheral, Seizure, TIA Other Neuro History: mini strokes Psychiatric History: Reports: None Endocrine/Metabolic History: Reports: Diabetes, Type II, IDDM, Obesity/BMI 30+ Hematologic History: Reports: None Immunologic History: Reports: None Oncologic (Cancer) History: Reports: None Dermatologic History: Reports: None - Infectious Disease History Infectious Disease History: Reports: Chicken Pox - Past Surgical History Head Surgeries/Procedures: Reports: None Female Surgical History: Reports: Section Social & Family History - Family History Family Medical History: Noncontributory Respiratory: Reports: Asthma Other Respiratory Family Hisory: Brother Endocrine/Metabolic: Reports: Diabetes, type II Other Endocrine/Metabolic Family History: Brother - Caffeine Use Caffeine Use: Reports: Soda - Alcohol Use Alcohol Use History: No - Recreational Drug Use Recreational Drug Use: No - Sexual History Sexual History: Reports: Sexually Active, Single Partner - Living Situation & Occupation Living situation: Reports: with Significant Other, with Family Occupation: Unemployed ED ROS GENERAL - Review of Systems Review Of Systems: ROS reveals no pertinent complaints other than HPI. ED EXAM, NEURO - Physical Exam Exam: See Below Exam Limited By: No Limitations General Appearance: Alert, Obese, Other (chronically ill appearing) Eye Exam: Bilateral Eye: Normal Inspection Nose: Normal Inspection, Normal Mucosa, No Blood Throat/Mouth: No Airway Compromise, Other (dry oral membranes) Head Exam: Atraumatic, Normocephalic Neck: Normal Inspection, Supple, Non-Tender, Full Range of Motion Respiratory/Chest: No Respiratory Distress, Lungs Clear, Normal Breath Sounds, No Accessory Muscle Use, Chest Non-Tender Cardiovascular: Regular Rate, Rhythm, No Edema, Tachycardia GI/Abdominal: Normal Bowel Sounds, Soft, Non-Tender, No Distention, No Abnormal Bruit (Female) Exam: Deferred Rectal (Female) Exam: Deferred Neurological: Alert, Oriented x 3, Abnormal Light Touch (rgiht upper and lower extremity), Other (weakness right and lower extremity. See pelletizer tender for NIH stroke scale. Patient's speech is slightly slurred, unable to determine if is due to neurologic deficit or severe dry mouth. ) Back Exam: Decreased Range of Motion (chronic) Extremities: Non-Tender, No Pedal Edema. No: Joint Swelling, Josee's Sign, Increased Warmth Psychiatric: Normal Mood Skin Exam: Warm, Dry, Intact, Normal Color, No Rash EKG INTERPRETATION EKG Date: 11/10/17 Time: 17:42 Rhythm: Other (sinus tachycardia) Rate (Beats/Min): 102 Tolstoy: LAD-Left Tolstoy Deviation (borderline.) P-Wave: Present (atrial enlargementborderlin) QRS: Other (borderline R wave progression anterior leads.) ST-T: Normal QT: Normal Course - Vital Signs Last Recorded V/S: Last Vital Signs Temp 97.7 F 11/10/17 19:45 Pulse 98 11/10/17 19:45 Resp 19 11/10/17 19:45 BP 110/68 11/10/17 19:45 Pulse Ox 95 11/10/17 19:45 - Orders/Labs/Meds Orders: Active Orders 24 hr Category Date Time Status Blood Glucose Check, Bedside [RC] ONETIME Care 11/10/17 18:22 Active Peripheral IV Care [RC] . DIRECTED Care 11/10/17 17:47 Active Head wo Cont [CT] Urgent Exams 11/10/17 17:30 Taken Sodium Chloride 0.9% [Saline Flush] Med 11/10/17 17:47 Active 10 ml FLUSH ASDIRECTED PRN Peripheral IV Insertion Adult [OM.PC] Stat Oth 11/10/17 17:46 Ordered Medication Orders Sodium Chloride (Saline Flush) 10 ml FLUSH ASDIRECTED PRN PRN Reason: Keep Vein Open Last Admin: 11/10/17 18:40 Dose: 10 ml Admin: 10/03/18 17:55 Dose: 10 ml Labs: Laboratory Tests 11/10/17 11/10/17 11/10/17 Range/Units 17:35 18:02 18:02 WBC 10.6 H (5.0-10.0) 10^3/uL RBC 4.33 (4.2-5.4) 10^6/uL Hgb 12.4 (12.0-16.0) g/dL Hct 36.6 L (37.0-47.0) % MCV 84.5 (80-100) fL MCH 28.6 (27.0-34.0) pg MCHC 33.9 (33.0-35.0) g/dL Plt Count 256 (150-450) 10^3/uL Neut % (Auto) 70.2 (42.2-75.2) % Lymph % (Auto) 18.5 L (20.5-50.1) % [place] % (Auto) 6.0 (2-8) % Eos % (Auto) 4.8 H (1.0-3.0) % Baso % (Auto) 0.5 (0.0-1.0) % PT 8.5 L (9.0-12.0) SEC INR 0.9 (0.9-1.2) APTT 22.2 (22.0-34.0) SEC Sodium (135-145) mmol/L Potassium (3.6-5.0) mmol/L Chloride (101-111) mmol/L Carbon Dioxide (21.0-31.0) mmol/L Anion Gap BUN (7-18) mg/dL Creatinine (0.6-1.3) mg/dL Est Cr Clr Drug Dosing mL/min Estimated GFR (MDRD) BUN/Creatinine Ratio Glucose (74-105) mg/dL POC Glucose > 500 H* (70-105) mg/dl Calcium (8.4-10.2) mg/dl Total Bilirubin (0.2-1.0) mg/dL AST (10-42) IU/L ALT (10-60) IU/L Alkaline Phosphatase (42-121) IU/L Troponin I (0.00-0.02) ng/ml Total Protein (6.7-8.2) g/dl Albumin (3.2-5.5) g/dl Globulin Albumin/Globulin Ratio Lipase (22-51) U/L Urine Color (YELLOW) Urine Appearance (CLEAR) Urine pH (5.0-9.0) Ur Specific [place] (1.005-1.030) Urine Protein (NEGATIVE) Urine Glucose (UA) (NEGATIVE) Urine Ketones (NEGATIVE) Urine Occult Blood (NEGATIVE) Urine Nitrite (NEGATIVE) Urine Bilirubin (NEGATIVE) Urine Urobilinogen (0.2-1.0) mg/dL Ur Leukocyte Esterase (NEGATIVE) Urine RBC /HPF Urine WBC (0-5/HPF) /HPF Ur Epithelial Cells /HPF Amorphous Sediment (0/HPF) /HPF Urine Bacteria (0-FEW/HPF) /HPF Urine Opiates Screen (NEGATIVE) Ur Oxycodone Screen (NEGATIVE) Urine Methadone Screen (NEGATIVE) Ur Barbiturates Screen (NEGATIVE) U Tricyclic Antidepress (NEGATIVE) Ur Phencyclidine Scrn (NEGATIVE) Ur Amphetamine Screen (NEGATIVE) U Methamphetamines Scrn (NEGATIVE) Urine MDMA Screen (NEGATIVE) U Benzodiazepines Scrn (NEGATIVE) Urine Cocaine Screen (NEGATIVE) U Marijuana (THC) Screen (NEGATIVE) Ethyl Alcohol mg/dL Ketones 11/10/17 11/10/17 11/10/17 Range/Units 18:02 18:25 19:04 WBC (5.0-10.0) 10^3/uL RBC (4.2-5.4) 10^6/uL Hgb (12.0-16.0) g/dL Hct (37.0-47.0) % MCV (80-100) fL MCH (27.0-34.0) pg MCHC (33.0-35.0) g/dL Plt Count (150-450) 10^3/uL Neut % (Auto) (42.2-75.2) % Lymph % (Auto) (20.5-50.1) % [place] % (Auto) (2-8) % Eos % (Auto) (1.0-3.0) % Baso % (Auto) (0.0-1.0) % PT (9.0-12.0) SEC INR (0.9-1.2) APTT (22.0-34.0) SEC Sodium 131 L (135-145) mmol/L Potassium 4.0 (3.6-5.0) mmol/L Chloride 98 L (101-111) mmol/L Carbon Dioxide 25.0 (21.0-31.0) mmol/L Anion Gap 12.0 BUN 27 H (7-18) mg/dL Creatinine 1.2 (0.6-1.3) mg/dL Est Cr Clr Drug Dosing 60.35 mL/min Estimated GFR (MDRD) 49 BUN/Creatinine Ratio 22.50 Glucose 589 H* (74-105) mg/dL POC Glucose 453 H* (70-105) mg/dl Calcium 8.7 (8.4-10.2) mg/dl Total Bilirubin 0.3 (0.2-1.0) mg/dL AST 15 (10-42) IU/L ALT 11 (10-60) IU/L Alkaline Phosphatase 110 (42-121) IU/L Troponin I 0.03 H* (0.00-0.02) ng/ml Total Protein 6.7 (6.7-8.2) g/dl Albumin 2.9 L (3.2-5.5) g/dl Globulin 3.8 Albumin/Globulin Ratio 0.76 Lipase 52 H (22-51) U/L Urine Color Light yellow (YELLOW) Urine Appearance Cloudy (CLEAR) Urine pH 5.5 (5.0-9.0) Ur Specific [place] 1.020 (1.005-1.030) Urine Protein >=300 H (NEGATIVE) Urine Glucose (UA) >=1000 H (NEGATIVE) Urine Ketones Negative (NEGATIVE) Urine Occult Blood Trace-intact H (NEGATIVE) Urine Nitrite Negative (NEGATIVE) Urine Bilirubin Negative (NEGATIVE) Urine Urobilinogen 0.2 (0.2-1.0) mg/dL Ur Leukocyte Esterase Negative (NEGATIVE) Urine RBC 0-5 /HPF Urine WBC 0-5 (0-5/HPF) /HPF Ur Epithelial Cells Few /HPF Amorphous Sediment Many H (0/HPF) /HPF Urine Bacteria Many H (0-FEW/HPF) /HPF Urine Opiates Screen (NEGATIVE) Ur Oxycodone Screen (NEGATIVE) Urine Methadone Screen (NEGATIVE) Ur Barbiturates Screen (NEGATIVE) U Tricyclic Antidepress (NEGATIVE) Ur Phencyclidine Scrn (NEGATIVE) Ur Amphetamine Screen (NEGATIVE) U Methamphetamines Scrn (NEGATIVE) Urine MDMA Screen (NEGATIVE) U Benzodiazepines Scrn (NEGATIVE) Urine Cocaine Screen (NEGATIVE) U Marijuana (THC) Screen (NEGATIVE) Ethyl Alcohol < 5 mg/dL Ketones Negative 11/10/17 11/10/17 Range/Units 19:04 19:39 WBC (5.0-10.0) 10^3/uL RBC (4.2-5.4) 10^6/uL Hgb (12.0-16.0) g/dL Hct (37.0-47.0) % MCV (80-100) fL MCH (27.0-34.0) pg MCHC (33.0-35.0) g/dL Plt Count (150-450) 10^3/uL Neut % (Auto) (42.2-75.2) % Lymph % (Auto) (20.5-50.1) % [place] % (Auto) (2-8) % Eos % (Auto) (1.0-3.0) % Baso % (Auto) (0.0-1.0) % PT (9.0-12.0) SEC INR (0.9-1.2) APTT (22.0-34.0) SEC Sodium (135-145) mmol/L Potassium (3.6-5.0) mmol/L Chloride (101-111) mmol/L Carbon Dioxide (21.0-31.0) mmol/L Anion Gap BUN (7-18) mg/dL Creatinine (0.6-1.3) mg/dL Est Cr Clr Drug Dosing mL/min Estimated GFR (MDRD) BUN/Creatinine Ratio Glucose (74-105) mg/dL POC Glucose 264 H (70-105) mg/dl Calcium (8.4-10.2) mg/dl Total Bilirubin (0.2-1.0) mg/dL AST (10-42) IU/L ALT (10-60) IU/L Alkaline Phosphatase (42-121) IU/L Troponin I (0.00-0.02) ng/ml Total Protein (6.7-8.2) g/dl Albumin (3.2-5.5) g/dl Globulin Albumin/Globulin Ratio Lipase (22-51) U/L Urine Color (YELLOW) Urine Appearance (CLEAR) Urine pH (5.0-9.0) Ur Specific [place] (1.005-1.030) Urine Protein (NEGATIVE) Urine Glucose (UA) (NEGATIVE) Urine Ketones (NEGATIVE) Urine Occult Blood (NEGATIVE) Urine Nitrite (NEGATIVE) Urine Bilirubin (NEGATIVE) Urine Urobilinogen (0.2-1.0) mg/dL Ur Leukocyte Esterase (NEGATIVE) Urine RBC /HPF Urine WBC (0-5/HPF) /HPF Ur Epithelial Cells /HPF Amorphous Sediment (0/HPF) /HPF Urine Bacteria (0-FEW/HPF) /HPF Urine Opiates Screen Negative (NEGATIVE) Ur Oxycodone Screen Negative (NEGATIVE) Urine Methadone Screen Negative (NEGATIVE) Ur Barbiturates Screen Negative (NEGATIVE) U Tricyclic Antidepress Negative (NEGATIVE) Ur Phencyclidine Scrn Negative (NEGATIVE) Ur Amphetamine Screen Negative (NEGATIVE) U Methamphetamines Scrn Negative (NEGATIVE) Urine MDMA Screen Negative (NEGATIVE) U Benzodiazepines Scrn Negative (NEGATIVE) Urine Cocaine Screen Negative (NEGATIVE) U Marijuana (THC) Screen Negative (NEGATIVE) Ethyl Alcohol mg/dL Ketones Meds: Medications Generic Name Dose Route Start Last Admin Trade Name Freq PRN Reason Stop Dose Admin Sodium Chloride 10 ml 11/10/17 17:47 11/10/17 18:40 Saline Flush FLUSH 10 ml ASDIRECTED PRN Administration Keep Vein Open Discontinued Medications Generic Name Dose Route Start Last Admin Trade Name Freq PRN Reason Stop Dose Admin Sodium Chloride 1,000 mls @ 999 mls/hr 11/10/17 18:24 11/10/17 18:42 Normal Saline IV 11/10/17 19:24 999 mls/hr .BOLUS ONE Administration Insulin Human Regular 10 unit 11/10/17 18:24 11/10/17 18:39 Humulin R IV 11/10/17 18:25 10 units ONETIME ONE Administration - Radiology Interpretation Free Text/Narrative:: Head CT: Hypodense lesion in the right thalamus probably an old lacunar infarct. ASPECTS SCORE 10. No sign of acute hemorrhagic or ischemic stroke. Low grade chronic sinus disease in the right maxillary sinus. See rad report. Departure - Departure Disposition: DC/Tfer to [facility] 02 Clinical Impression: Hyperglycemia, Stroke-like symptoms Diarrhea Qualifiers: Diarrhea type: unspecified type Qualified Code(s): R19.7 - Diarrhea, unspecified - Discharge Information Forms: ED Department Discharge, Interfacility Transfer EMTALA <Heidy Brice - Last Filed: 11/10/17 21:03> Course - Re-Assessments/Exams Free Text/Narrative Re-Assessment/Exam: 11/10/17 21:01 Discussed Patient case with Dr. Edgar who states since we are unable to do an Echo and properly work her up for stroke, he would like to send her to . Discussed patient case with Dr. Montes at [facility] who agreed to accept the patient for transfer. Departure - Departure Time of Disposition: 21:02 Condition: Fair - Discharge Information *PRESCRIPTION DRUG MONITORING PROGRAM REVIEWED*: No *COPY OF PRESCRIPTION DRUG MONITORING REPORT IN PATIENT DARIELA: No I have read and agree with the documentation that has been completed regarding this visit. By signing this record, I attest that the documentation was completed in my physical presence and is an accurate record of the encounter.
[2017-11-10 19:46] VITALS: BP 110/68
[2017-11-10] MEDS ORDERED: HYDROmorphone 0.5 MG/0.5 ML Syringe IVPUSH ONE (21:06)
== END 2017-11-10 21:16 ==
LOC: DL.ED 17:28
DX: R29.818 Other symptoms and signs involving the nervous system (principal); E11.65 Type 2 diabetes mellitus with hyperglycemia; R19.7 Diarrhea, unspecified; I10 Essential (primary) hypertension; E11.40 Type 2 diabetes mellitus with diabetic neuropathy, unspecified; Z79.4 Long term (current) use of insulin; Z79.82 Long term (current) use of aspirin; E66.01 Morbid (severe) obesity due to excess calories
CPT/HCPCS: 36415; 70450; 80053; 80305; 81001; 82009; 82962; 83690; 84484; 85025; 85610; 85730; 93005; 96361; 96374; 96375; 99285; G0480; J1170; J1815; J7030; J7050